=== PATIENT | male | born 1965 | race Caucasian/White ===

== ENCOUNTER → 2023-12-21 11:01 | Outpatient (REF) | payer OTHER, SELFPAY | LOC: RAD 11:01 | PROVIDERS: ATTENDING PHYSICIAN Nurse Practitioner Family | DX: M25.571 Pain in right ankle and joints of right foot (principal); M25.531 Pain in right wrist | CPT/HCPCS: 73110; 73610 ==

== ENCOUNTER → 2024-01-08 06:17 | Outpatient (REF) | payer OTHER, SELFPAY | LOC: EMG 06:17 | PROVIDERS: ATTENDING PHYSICIAN Orthopaedic Surgery; FAMILY PHYSICIAN Family Medicine | DX: R20.0 Anesthesia of skin (principal) | CPT/HCPCS: 95886; 95909 ==

== ENCOUNTER → 2024-01-14 06:32 | Outpatient (REF) | payer OTHER, SELFPAY | LOC: MRI 3T 06:32 | PROVIDERS: ATTENDING PHYSICIAN Orthopaedic Surgery; FAMILY PHYSICIAN Internal Medicine | DX: M54.12 Radiculopathy, cervical region (principal) | CPT/HCPCS: 72141 ==

== ENCOUNTER 2024-01-17 15:59 | Inpatient (IN) | payer OTHER, SELFPAY ==
[2024-01-17 10:27] VITALS: BP 125/75
[2024-01-17 11:00] VITALS: BMI 22.5
--- NOTE | 2024-01-17 12:09 | ED.GENMED ---
History of Present Illness
General
Chief Complaint: DVT/Possible Blood Clot
Source: patient and spouse
Exam Limitations: none
Time Seen by Provider: 01/17/24 10:36
Nursing documentation reviewed up to this point in time: agreed with
Travel History
Have you had any contact with someone who has COVID-19?: No
Do you have any symptoms of coronavirus? Fever > 100 degrees, chills, cough, shortness of breath, sore throat, loss of taste or smell, muscle aches, or headache?: No
History of Present Illness
History of Present Illness:
58-year-old male presents emergency department complaining of swelling and rash to left foot and lower leg that started on Sunday. He saw Dr. Nielsen today for his right wrist pain, and was sent to the emergency department. He has had rashes and
pain in other joints in the past. Dr. Nielsen recommended he come to the emergency department, as well as follow-up with rheumatology.
Past History
Past History
ED Past Medical History: Asthma
ED Past Surgical History: Orthopedic (Bilateral shoulder surgery, right hip surgery)
Social History
Tobacco: Non-smoker
Alcohol: None
Drug: None
Living: with family
Phy Exam
Physical Exam
Physical Exam:
Physical Exam
General: Afebrile
Neck: supple. no meningeal signs. normal posterior pharynx
Heart: s1/s2 regular rate and rhythm, no murmur. equal radial
pulses.
HEENT: Pupils equal round reactive to light, EOMI
Lungs: no acute respiratory distress. clear bilaterally
Abdomen: normal bowel sounds. not tender. no CVAT
Neuro: alert and oriented. no focal neurological deficits cranial nerves II through XII intact
Skin: Erythema left lower leg
Psychiatric: well kept. interactive and cooperative
Extremities: Edema left lower leg, calf tenderness left lower leg, positive homans. good distal pulses, soft compartments
Course
Orders/Labs/Results
Orders:
Orders
01/17/24 12:08
IV Insert/Care/Rem.- Treatment PRN
US Periph Venous LOWER Ext LT Urgent
Comment:
Reason For Exam: left leg swelling, pain
01/17/24 12:25
CRP [C-Reactive Protein] Urgent
Complete Blood Count/With Diff Urgent
Comprehensive Metabolic Panel Urgent
ESR [Erythrocyte Sed Rate] Urgent
01/17/24 15:08
Apixaban [Eliquis] 10 mg PO STAT STA
01/17/24 15:14
CeFAZolin 2 GRAM [Ancef] 2 grams in 10 ml IV NOW
01/17/24 15:46
Procalcitonin Stat
PCT Algorithmm Indication: Sepsis
Serum Osmolality Stat
Urinalysis Reflex To Culture Routine
Urine Osmolality Random [Osmolality, Random Urine] Stat
Urine Sodium Stat
Abnormal Lab Results
01/17/24
12:25
WBC 11.6 H 10^3/uL
(4.8-10.8)
RBC 4.25 L 10^6/uL
(4.70-6.10)
Hgb 12.1 L g/dL
(13.0-18.0)
Hct 35.5 L %
(39.0-52.0)
RDW 14.6 H %
(11.5-14.5)
Abs Immat Gran (auto) 0.1 H 10^3/uL
(0-0.05)
Absolute Neuts (auto) 9.7 H 10^3/uL
(1.4-6.5)
Absolute Lymphs (auto) 1.0 L 10^3/uL
(1.2-3.4)
Absolute Monos (auto) 0.8 H 10^3/uL
(0.1-0.6)
Neutrophils % 83.1 H %
(42.2-75.2)
Lymphocytes % 8.9 L %
(20.5-51.1)
ESR 46 H mm/hour
(0-20)
Sodium 127 L mmol/L
(135-145)
Glucose 105 H mg/dl
(70-99)
Calcium 8.1 L mg/dl
(8.4-10.2)
C-Reactive Protein 199.90 H mg/L
(0.0-10.00)
Albumin 3.1 L g/dl
(3.5-5.0)
01/17/24 12:25
01/17/24 12:25
Vital Signs
Initial and Last Documented VS:
Initial Vital Signs
Temp Pulse Resp BP Pulse Ox
98.7 F 109 18 125/75 95
01/17/24 10:27 01/17/24 10:27 01/17/24 10:27 01/17/24 10:27 01/17/24 10:27
Last Documented Vital Signs
Temp Pulse Resp BP Pulse Ox
99.5 F 94 20 126/78 97
01/17/24 14:51 01/17/24 14:51 01/17/24 14:51 01/17/24 14:51 01/17/24 14:51
MDM/Problems Addressed
Differential Diagnosis Includes:
DVT, cellulitis, compartment syndrome
MDM/Problems Addressed:
58-year-old male with left lower leg DVT and cellulitis. Treat with cefazolin and Eliquis. Admit to hospitalist.
Acute Exacerbation and/or Progression of Chronic Illness: Other (Possible autoimmune disease, polyarthritis)
*Radiology
Radiology exam reviewed: radiology read reviewed (Ultrasound shows left posterior tibial DVT)
*Pulse Oximetry
Patient hypoxic: no
*EKG
Interpreted by ED Provider?: NA
*Dentistry Teacher Interpretation
Rate: Dentistry Teacher- N/A
*Critical Care Note
Total Time (30-74mins, 75-104mins- exclusive of procedures): Not Applicable
Patient Management
Social determinants of health affecting care: Living situation and Strong social support
Discussion with other providers: Hospitalist and Processing Rep (Dr. Eyad Nielsen, orthopedics, did not suspect compartment syndrome on his evaluation in office)
Escalation/DeEscalation of care consider admission/obs:
Admit indicated
ED Attending Note
-
Portions of this chart may have been created with voice recognition software.� Occasional wrong word or��sound alike� substitutions may have occurred due to the inherent limitations of voice recognition software.
Discharge Plan
Departure
Patient Disposition: Admit
Date of Disposition: 01/17/24
Time of Disposition: 14:52
Admit to: Med/Surg
Presentation/result/management discussed w/ accepting MD/DO: Hospitalist
Patient with high blood pressure during this ER visit?: Yes
Condition: Good
Discharge Problem:
Cellulitis of left leg, Acute deep vein thrombosis (DVT) of left lower extremity
Prescriptions:
No Action
tramadol 50 mg Tablet
50 mg PO Q6H PRN (Reason: severe pain)
Patient Comments:
01/17/2024, pt. filled this med. on 01/04/2024 for 40 tablets according to PDMP.
ibuprofen [Advil] 200 mg Tablet
400 mg PO DAILYPRN PRN (Reason: mild pain)
albuterol sulfate 90 mcg/actuation Hfa Aerosol Inhaler
2 puff INHALATION R Q4HPRN PRN (Reason: sob)
Fruit and Vegetable Daily 5-6-150 mg Capsule
6 cap PO DAILY
Anoro Ellipta 62.5-25 mcg/actuation Blister With Device
1 inh INHALATION R DAILY
gabapentin
1 cap PO BIDPRN PRN (Reason: mild pain)
Patient Comments:
01/17/2024, pt. used an older prescription of his from 2016 per pt.; was not able to find in pharmacy fill data or [facility] records. Pt. has used this med. for the past three days per pt.; pt. unsure of strength.
cyclobenzaprine 10 mg Tablet
10 mg PO ONCE PRN (Reason: muscle relaxer)
Referrals:
Bryson Horn I., DO [Family Provider] -
Interventions
Interventions:
*Risk Screen - Suicide Last Done: 01/17/24 11:00
*General Assessment Last Done: 01/17/24 11:00
*Neglect/Abuse Screening Last Done: 01/17/24 11:00
*ED COVID-19 Vaccine History Last Done: 01/17/24 11:00
ED- Cardiac Assessment Last Done: 01/17/24 13:00
ED- Pulmonary Assessment Last Done: 01/17/24 13:00
ED-Peripheral Vascular Assessment Last Done: 01/17/24 13:00
ED-Skin Assessment Last Done: 01/17/24 13:00
[2024-01-17 12:36] LABS: % Basophils 0.3 % (0-2); % Eosinophils 0.1 % (0-6); % Immature Granulocytes 0.5 % (0-0.5); % Lymphocytes 8.9 % (20.5-51.1); % Monocytes 7.1 % (1.7-9.3); % Neutrophils 83.1 % (42.2-75.2); Absolute Immature Granulocytes 0.1 10^3/uL (0-0.05); Absolute Monocytes 0.8 10^3/uL (0.1-0.6); Absolute Neutrophils 9.7 10^3/uL (1.4-6.5); Hematocrit 35.5 % (39.0-52.0); Hemoglobin 12.1 g/dL (13.0-18.0); Mean Corp Hgb Conc. 34.1 g/dL (33.0-37.0); Mean Corpuscular Hgb 28.5 pg (27.0-31.0); Mean Corpuscular Volume 83.5 fL (80.0-94.0); Mean Platelet Volume 9.3 fL (7.4-10.4); Nucleated Red Blood Cells % 0 % (-); Platelet Count 272 10^3/uL (130-400); Red Blood Cell Count 4.25 10^6/uL (4.70-6.10); Red Cell Dist. Width 14.6 % (11.5-14.5); White Blood Cell Count 11.6 10^3/uL (4.8-10.8)
[2024-01-17 12:55] LABS: ALT (SGPT) 37 U/L (0-50); AST (SGOT) 34 U/L (17-59); Albumin 3.1 g/dl (3.5-5.0); Alkaline Phosphatase 116 U/L (38-126); Blood Urea Nitrogen 11 mg/dl (9-20); Calcium 8.1 mg/dl (8.4-10.2); Carbon Dioxide 28 mmol/L (22-30); Chloride 98 mmol/L (98-107); Estimated Creatinine Clearance 116 ml/min; Glucose 105 mg/dl (70-99); Potassium 4.4 mmol/L (3.5-5.1); Sodium 127 mmol/L (135-145); Total Bilirubin 0.6 mg/dl (0.2-1.3); Total Protein 6.4 g/dl (6.3-8.2); eGFR > 60.00
[2024-01-17 13:14] LABS: Erythrocyte Sed Rate 46 mm/hour (0-20)
[2024-01-17 14:51] VITALS: BP 126/78
--- NOTE | 2024-01-17 15:14 | HPS.HSE ---
Addendum entered and electronically signed by Clyde Loera MD 01/17/24 16:33:
58-year-old male with a past medical history of asthma presents with a 1 day history of left lower extremity pain, swelling, erythema.
Ultrasound is positive for left posterior tibial vein DVT.
Check procalcitonin.
Treat for cellulitis with IV Ancef, DVT with Eliquis 10 mg twice a day for 7 days, followed by 5 mg twice a day.
Trend fever and white count.
Inflammatory markers are elevated, CRP 199, ESR 46.
He does complain of migratory arthritic pain. He received a right wrist steroid injection by orthopedic surgery today.
Check CHARISSA and RF as well.
Patient's sodium was noted to be low at 127, his most recent sodium is 133.
Suspect this is due to excess ADH release from pain.
Will check serum osmolality, urine osmolality, TSH, a.m. cortisol.
Fluid restrict, monitor sodium.
Total time spent to see the patient on the floor, examine the patient, review data and lab results, discuss treatment plan with patient, nursing staff around 75 minutes.
I have personally seen and examined the patient, and agree with the plan of care as documented by JOSE Milligan.
Advance care planning discussed, patient is a full code.
All other issues as outlined by the advanced care practitioner.
Original Note:
Family Physician
-
Family Physician: Bryson Horn
Chief Complaint
-
left LE redness and swelling, pain
History of Present Illness
58-year-old male with PMH for asthma presented to us with swelling and rash to left foot and lower leg that started on Sunday.�stated its been going on since September. he had physical, blood work and he has an appointment for MRI. he was also
complaining for joint pain since then. recently he started having pain in his right hand pain. He saw Dr. Nielsen today for his right wrist pain, and was sent to the emergency department after steroid injection. denied fever, chills, chest pain, sob.
denied ELIZALDE,dizzy or syncopal episode. denied abdominal pain, n,v,d. denied dysuria or hematuria. denied any recent surgery, denied trauma.
US with DVT. patient received a dose of eliquis and cefazolin. admitting for further management.
Medical History
Past Medical History
Past Medical History: Reports Other
Additional Past Medical History:
asthma
Past Surgical History: Reports Other
Additional Past Surgical History:
b/l shoulder surgery
right hip surgery
Social History
Tobacco: Smoker (1/2 pack day)
Alcohol: None
Drug: None
Personal:
Living: With Family
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
Family History
Family History: Not pertinent
Allergies / Home Medications
Allergies reflects when Allergies were last updated in [facility].
Home Medications with original date entered in [facility]
Allergy/Medication List:
Allergies
Allergy/AdvReac Type Severity Reaction Status Date / Time
No Known Allergies Allergy Verified 01/17/24 10:26
Home Medications
albuterol sulfate 90 mcg/actuation aerosol inhaler 2 puff inhalation R Q4HPRN PRN sob 01/17/24
cyclobenzaprine 10 mg tablet 10 mg PO ONCE PRN muscle relaxer 01/17/24
gabapentin 1 cap PO BIDPRN PRN mild pain 01/17/24
ibuprofen 200 mg tablet (Advil) 400 mg PO DAILYPRN PRN mild pain 01/17/24
ltnhdmab-tsfsda-nwsla extract 5 mg-6 mg-150 mg capsule (Fruit and Vegetable Daily) 6 cap PO DAILY 01/17/24
tramadol 50 mg tablet 50 mg PO Q6H PRN severe pain 01/17/24
umeclidinium 62.5 mcg-vilanterol 25 mcg/actuation powdr for inhalation (Anoro Ellipta) 1 inh inhalation R DAILY 01/17/24
Review of Systems
-
Constitutional: Reports No Symptoms
EENT: Reports No Symptoms
Respiratory: Reports No Symptoms
Cardiac: Reports No Symptoms
Abdomen/GI: Reports No Symptoms
: Reports No Symptoms
Musculoskeletal: Reports Joint Pain and Other (left LE pain, right wrist, hand pain)
Skin: Reports No Symptoms
Neurological: Reports No Symptoms
Endocrine: Reports No Symptoms
Hematologic/Lymphatic: Reports No Symptoms
Psych: Reports No Symptoms
Physical Exam
Vital Signs
Vital Signs
Temp Pulse Resp BP Pulse Ox
99.5 F 94 20 126/78 97
01/17/24 14:51 01/17/24 14:51 01/17/24 14:51 01/17/24 14:51 01/17/24 14:51
Physical Exam
General: Well Developed, Well Nourished and No Apparent Distress
HEENT: NormoCephalic, Moist mucous membranes and Atraumatic
Respiratory: Clear
Cardiac: S1/S2 and Regular Rhythm; No Murmur or Rub
GI: Soft, Non Tender, Non Distended and Normal Bowel Sounds; No Organomegaly
Rectal: Deferred by Provider
Musculoskeletal: No Clubbing, No Cyanosis and Other (left LE redness and swelling)
Skin: No Rash
Neuro: AO x 3 and Nonfocal/grossly intact
Psych: Calm
Laboratory Results
-
01/17/24 12:25
01/17/24 12:25
Laboratory Results
Total Bilirubin 0.6 mg/dl (0.2-1.3) 01/17/24 12:25
AST 34 U/L (17-59) 01/17/24 12:25
ALT 37 U/L (0-50) 01/17/24 12:25
Alkaline Phosphatase 116 U/L (38-126) 01/17/24 12:25
Data Reviewed
-
Diagnostic Radiology: Report Reviewed by me
Lab Data: Labs Reviewed by me
Impression/Plan
-
# Left lower extremity cellulitis
-WBC 11.6
-CRP 199.90, ESR with 46
-iv cefazolin continued
-Tylenol for fever and pain
-trend wbc
-oxy prn for pain
# Left lower extremity DVT
-peripheral vascular sound with �Deep venous thrombosis in a left posterior tibial vein.
-eliquis in Er
-continue eliquis
# Acute on chronic hyponatremia likely from pain
-Sodium 127
-obtain urine electrolytes
-TSH
-cortisol in am
-fluid restriction
-monitor BMP in AM
#hxt of asthma
-nebs from home continued
#CODE status
-full code
[2024-01-17] MEDS: ELIQUIS 10 MG PO (15:15)
[2024-01-17] MEDS: ANCEF 10 IV ×2 (16:37→23:15)
[2024-01-17 16:54] VITALS: BP 129/79
[2024-01-17] MEDS: TYLENOL 1000 MG PO ×2 (17:03→23:11)
[2024-01-17] MEDS: ROXICODONE 10 MG PO (17:03)
[2024-01-17 17:31] LABS: Urine Albumin Trace (Neg - Trace); Urine Bilirubin Negative (Negative); Urine Character Clear (Clear); Urine Color Yellow; Urine Glucose Negative (Negative); Urine Ketone Negative (Negative); Urine Leukocyte Negative (Negative); Urine Nitrite Negative (Negative); Urine Occult Blood 2+ (Negative); Urine Urobilinogen Negative (Neg - 1+)
[2024-01-17 17:34] LABS: Osmolality Urine 414 mOsm/kg (300-900)
[2024-01-17 17:38] LABS: Osmolality Serum 274 mOsm/kg (275-300)
[2024-01-17 17:39] LABS: Urine Squamous Cell 0-2 /LPF (Few)
[2024-01-17 17:39] LABS: Procalcitonin 0.19 ng/ml (0.0-0.25)
[2024-01-17 17:40] LABS: Urine White Cell 0-2 /HPF (0-5)
[2024-01-17 17:49] LABS: Urine Sodium 17 mmol/L (30-90)
[2024-01-17 18:34] VITALS: BMI 22.1
[2024-01-17 18:35] VITALS: BP 121/66
[2024-01-17] MEDS: MIRALAX 17 GRAMS PO (19:47)
[2024-01-17] MEDS: SENOKOT-S 2 TABLET PO (19:52)
[2024-01-17 23:06] VITALS: BP 113/74
[2024-01-18 05:45] LABS: Hematocrit 37.2 % (39.0-52.0); Hemoglobin 12.4 g/dL (13.0-18.0); Mean Corp Hgb Conc. 33.3 g/dL (33.0-37.0); Mean Corpuscular Hgb 28.4 pg (27.0-31.0); Mean Corpuscular Volume 85.1 fL (80.0-94.0); Mean Platelet Volume 9.6 fL (7.4-10.4); Platelet Count 272 10^3/uL (130-400); Red Blood Cell Count 4.37 10^6/uL (4.70-6.10); Red Cell Dist. Width 14.4 % (11.5-14.5)
[2024-01-18 06:09] LABS: Blood Urea Nitrogen 12 mg/dl (9-20); Calcium 8.3 mg/dl (8.4-10.2); Carbon Dioxide 29 mmol/L (22-30); Chloride 101 mmol/L (98-107); Estimated Creatinine Clearance > 125 ml/min; Glucose 122 mg/dl (70-99); Potassium 4.4 mmol/L (3.5-5.1); Sodium 133 mmol/L (135-145); eGFR > 60.00
[2024-01-18 07:00] VITALS: BP 108/63
[2024-01-18 07:19] LABS: TSH Reflex To Free T4 2.63 uIU/ml (0.47-4.68)
[2024-01-18] MEDS: SPIRIVA RESPIMAT 2.5 MCG 2 PUFF INH (07:53)
[2024-01-18] MEDS: STRIVERDI RESPIMAT 2 PUFF INH (07:54)
--- NOTE | 2024-01-18 08:51 | W.PN.HOSP.TC ---
Today's Communication/Plan
-
Consult ID
Assessment / Plan
Assessment / Plan
HPI: 58-year-old male with a past medical history of asthma presents with a 1 day history of left lower extremity pain, swelling, erythema.�
Ultrasound is positive for left posterior tibial vein DVT.
#Poss acute left lower extremity cellulitis
#Streptococcal bacteremia versus contaminant
Procalcitonin 0.19 - unclear if actual infection
Continue IV Ancef, repeat blood cultures, c/s ID
#Migrating polyarthritis
CRP elevated at 199
Follow-up CHARISSA and RF, send out test
Follow-up with rheumatology outpatient
#Acute left lower extremity DVT
Deep venous thrombosis in a left posterior tibial vein
Eliquis 10 mg twice a day for 7 days, followed by 5 mg twice a day
#Acute on chronic hyponatremia
Suspect due to excess ADH release from pain
TSH and cortisol normal
Sodium 133 today, was 127
Continue fluid restriction, monitor sodium
#hxt of asthma
nebs from home continued
DVT prophylaxis�Eliquis
Full code
Discussed with ID
Updated on phone 01/17
Total time spent to see the patient on the floor, examine the patient, review data and lab results, discuss treatment plan with patient, nursing staff around 51 minutes.
Physical Exam
General: No acute distress
HEENT: Normocephalic, Atraumatic, EOMI, MMM
Respiratory: Clear to Auscultation bilaterally
Cardiac: Normal S1/S2, Regular Rate and Rhythm
GI: Soft, Nontender, Nondistended, Normal Bowel Sounds
Extremities: No Clubbing, Cyanosis
Left lower extremity edema and tenderness noted, erythema on admission resolved
Neuro: Nonfocal/Grossly Intact
Anticipated Discharge: > 48 hours
Subjective/Interval History
-
Date of Service: January 18, 2024
Patient reports improvement in left lower extremity pain. No fever. No chest pain, shortness of breath, or palpitations.
Objective Data
-
Labs:
Laboratory Results
01/18/24
05:15
WBC 9.0
Hgb 12.4 L
Hct 37.2 L
Plt Count 272
Sodium 133 L
Potassium 4.4
Chloride 101
Carbon Dioxide 29
BUN 12
Creatinine 0.6 L
Glucose 122 H
Calcium 8.3 L
Vital Signs:
Vital Signs
Temp Pulse Resp BP Pulse Ox
97.4 F 81 18 108/63 96
01/18/24 07:00 01/18/24 08:07 01/18/24 08:07 01/18/24 07:00 01/18/24 08:07
I&O
01/17/24 01/18/24 01/19/24
06:59 06:59 06:59
Intake Total 840 / 840
Output Total 640 / 640
Balance 200 / 200
[2024-01-18] MEDS: ROXICODONE 10 MG PO ×3 (09:01→18:31)
[2024-01-18] MEDS: ANCEF 10 IV (09:02)
[2024-01-18] MEDS: SENOKOT-S 2 TABLET PO ×2 (09:02→22:28)
[2024-01-18] MEDS: ELIQUIS 10 MG PO (09:02)
[2024-01-18] MEDS: TYLENOL 1000 MG PO ×3 (09:03→22:32)
[2024-01-18] MEDS: MIRALAX 17 GRAMS PO ×2 (09:03→22:25)
--- NOTE | 2024-01-18 11:04 | CON.ID ---
Consultation
-
Date/Time Consultation Requested: 01/18/24 10:37
Date/Time Consultation Performed: 01/18/24 11:04
Requesting Provider: Dr Loera
Performing Provider: Dr Escobar
Reason for Consultation: bacteremia
Chief Complaint / Past History
Chief Complaint
left LE redness and swelling, pain
History of Present Illness
Mr Aggarwal is a 58 year old male with history of asthma presenting here for swelling and rash of the L foot. The Left lower extremity began with swelling of the calf and ankle 3 days ago. He feels frustrated because he also had marked swelling of
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 The swelling subseqeuntly subsided. About two week later he then had
swelling of the calf of the RIGHT lower extremity - tenderness that subsequently subsided on its own without workup. He has not seen his PCP for these issues. Reports no previous diagnosis of dvt. Does report a recent PSA in the 20s and MRI of
the prostate is planned for mid-next week. No fevers, chills, shortness of breath, nausea, vomiting, diarrhea. No recent trauma or surgery. 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 US of
the LLE found to have a DVT. He was seen in orthopedics hand clinic same day for new onset or R wrist pain and had a steroid injection and then was sent to the ER.
Able to bear full weight on the right leg, no swelling tendernes, warmth or fluctuance of the hip or the leg at this time.
Since arrival here he has been afebrile, bp stable, wbc 9 today, there was L shift on arrival, hgb 12, plt 272, esr 46, cr 0.6, crp 199, procal 0.19, a1c pending, ua neg, rf and trena pending, L lower extremity DVT noted, 01/14 C spine MRI without
contrst: severe DJD, blood cultures x2 at the same time both with gpcs in chains - source not specified unclear if from the same stick.
Past History
Past Medical History: Asthma
Additional Past Surgical History:
bilateral shoulder surgery without hardwear
right hip replacement
Allergy History:
No Known Allergies Allergy (Verified 01/17/24 10:26)
Medications Reviewed: Yes
Social History
Tobacco: Smoker
Alcohol: None
Drug: None
Family History
Family History: Not Pertinent
Review of Systems
Review of Systems
General: Negative Fever or Chills
All systems: All other systems were reviewed and were negative
Vital Signs
Temp Pulse Resp BP Pulse Ox
97.4 F 81 18 108/63 96
01/18/24 07:00 01/18/24 08:07 01/18/24 08:07 01/18/24 07:00 01/18/24 08:07
Physical Exam
Physical Exam
Constitutional: No Acute Distress
Cardiovascular: Regular Rate and S1/S2; Negative Murmur or Rub
Pulmonary: Clear and Symmetric; Negative Wheezes, Rales or Rhonchi
Gastrointestinal: Soft, Non Tender, Non Distended and Normal Bowel Sounds
Skin: Warm and Dry; Negative Rash or Jaundice
Lab / Diagnostic Study Results
01/18/24 05:15
01/18/24 05:15
Abs Immat Gran (auto) 0.1 10^3/uL (0-0.05) H 01/17/24 12:25
Absolute Neuts (auto) 9.7 10^3/uL (1.4-6.5) H 01/17/24 12:25
Absolute Lymphs (auto) 1.0 10^3/uL (1.2-3.4) L 01/17/24 12:25
Absolute Monos (auto) 0.8 10^3/uL (0.1-0.6) H 01/17/24 12:25
Absolute Basos (auto) 0.0 10^3/uL (0-0.2) 01/17/24 12:25
Immature Gran % 0.5 % (0-0.5) 01/17/24 12:25
Neutrophils % 83.1 % (42.2-75.2) H 01/17/24 12:25
Lymphocytes % 8.9 % (20.5-51.1) L 01/17/24 12:25
Monocytes % 7.1 % (1.7-9.3) 01/17/24 12:25
Eosinophils % 0.1 % (0-6) 01/17/24 12:25
Basophils % 0.3 % (0-2) 01/17/24 12:25
ESR 46 mm/hour (0-20) H 01/17/24 12:25
C-Reactive Protein 199.90 mg/L (0.0-10.00) H 01/17/24 12:25
Procalcitonin 0.19 ng/ml (0.0-0.25) 01/17/24 16:52
Ur Squamous Epith Cells 0-2 /LPF (Few) 01/17/24 17:23
Microbiology Results
Micro:
01/17/24 16:52 Blood Culture - Preliminary
Blood/Venous Positive culture in progress
Gram Stain - Final
01/17/24 16:52 Blood Culture - Preliminary
Blood/Venous Positive culture in progress
Gram Stain - Preliminary
Assessment / Plan
Bacteremia vs Contaminated Blood cultures
LLE DVT; history suggestive of previous DVTs (not confirmed)
Right Hip Hardwear
- leukocytosis may have been due to steroid injection
- blood cultures x2 at the same time both with gpcs in chains - source not specified - unclear if from the same stick - may be a contaminant
- repeat blood cultures x2 today - has already been on cefazolin
- no cellulitis of the calf, swelling of the leg is noted without significant erythema of the leg, there is edema and minimal dependant erythema of the left ankle along with edema, my concern for septic joint at this time is low, follow clinically,
if unclear then could consider aspiration of the joint
- TTE
- right hip asymptomatic
- continue cefazolin at this time
- suspect previous DVTs of the RUE and LLE, note history of elevated PSA (20s by report), he is planned for MRI prostate mid next week, might also consider hematology follow up outpatient
Care Review
Plan reviewed with: Physician (Dr Loera - dvt(s))
[2024-01-18 11:49] VITALS: BMI 22.1
[2024-01-18 13:01] VITALS: BP 130/69
[2024-01-18 15:00] VITALS: BP 115/65
--- NOTE | 2024-01-18 16:55 | CON.CAR ---
Consultation
Consultation Request
Date/Time Consultation Requested: January 18, 2024 5 PM
Date/Time Consultation Performed: January 18, 2024 5 PM
Requesting Provider: Hospitalist
Performing Provider: cammy garcia
Reason for Consultation: infective endocarditis
Medical History
-
Chief Complaint: LLE pain swelling erythema
History of Present Illness:
58-year-old male with past medical history of asthma who presented initially for left lower extremity pain swelling and erythema. Prior to admission his left lower extremity had begun swelling 3 days before he came to the hospital. Interestingly,
he has had multiple episodes of swelling including his right arm and hand as well as his right lower extremity. He was found to have cellulitis and blood cultures were drawn. His blood cultures were ultimately positive for gram-positive
bacteremia. A transthoracic echocardiogram was done and it is concerning for possible mitral valve endocarditis with severe mitral regurgitation and possible aortic valve endocarditis with moderate aortic regurgitation.
Past Medical History
Past Medical History: Asthma
Past Surgical History: Other (Right hip replacement bilateral shoulder surgery.)
Social History
Tobacco: Smoker
Alcohol: None
Drug: None
Personal:
Family History
Family History: Reviewed & Not Pertinent
Allergies / Home Medications
Allergy/AdvReac Type Severity Reaction Status Date / Time
No Known Allergies Allergy Verified 01/17/24 10:26
Medication Instructions Recorded Confirmed Type
albuterol sulfate 90 mcg/actuation 2 puff inhalation R Q4HPRN PRN sob 01/17/24 01/17/24 History
aerosol inhaler
cyclobenzaprine 10 mg tablet 10 mg PO ONCE PRN muscle relaxer 01/17/24 01/17/24 History
gabapentin 1 cap PO BIDPRN PRN mild pain 01/17/24 01/17/24 History
ibuprofen 200 mg tablet (Advil) 400 mg PO DAILYPRN PRN mild pain 01/17/24 01/17/24 History
hbwrjhsk-zcobwg-nsixf extract 5 6 cap PO DAILY Supplement 01/17/24 01/17/24 History
mg-6 mg-150 mg capsule (Fruit and
Vegetable Daily)
tramadol 50 mg tablet 50 mg PO Q6H PRN severe pain 01/17/24 01/17/24 History
umeclidinium 62.5 mcg-vilanterol 1 inh inhalation R DAILY 01/17/24 01/17/24 History
25 mcg/actuation powdr for Lung/Breathing Issues
inhalation (Anoro Ellipta)
Review of Systems
-
All other systems: Negative unless noted
Physical Exam
Vital Signs
Temp Pulse Resp BP Pulse Ox
97.7 F 90 16 115/65 98
01/18/24 15:00 01/18/24 15:00 01/18/24 15:00 01/18/24 15:00 01/18/24 15:00
Lab Results
01/18/24 05:15
01/18/24 05:15
Physical Exam
General: Well Developed and Well Nourished
HEENT: Normocephalic and Anicteric
Respiratory: Clear and Non Labored Respirations
Cardiac: S1/S2 and Regular Rhythm
GI: Soft
Musculoskeletal: No Clubbing and No Cyanosis
Skin: Warm and Dry
Neuro: AO x 3
Impression / Plan
-
58-year-old male with past medical history of asthma who was initially admitted for left lower extremity cellulitis. He was found to have gram-positive bacteremia and an echocardiogram showed severe mitral regurgitation with thickening of the
anterior and posterior leaflets concerning for endocarditis, as well as a possible torn chordae versus vegetation attached to the posterior leaflet. Additionally, he now has moderate AI which thickened aortic valve cusps in the setting of
bacteremia this is concerning for additional endocarditis of the aortic valve.
Likely endocardities of the MV and possibly AV with severe MR and mod AI
- Cardiac surgery consult
- STEPHANIE on 01/20/2024, NPO after midnight on 01/19/2024
- Abx per primary
- obtain ECG and place on telemetry
DVT
- per primary
Migrating polyarthritis
- Elevated CRP and ESR
hyponatremia - per primary
Asthma
Data Reviewed
-
Medical Tests (Nuc Med, Echo etc): Image Personally Visualized and interpreted, Discussed with Physician and Discussed with Family
Labs: Labs Reviewed by me
--- NOTE | 2024-01-18 16:57 | CONSULT.CT ---
Consultation
-
Date/Time Consultation Requested: 01/18/241644
Date/Time Consultation Performed: 01/18/24 1700
Requesting Provider: Dr. Loera
Performing Provider: Ghazal Barry MD
Reason for Consultation: Endocarditis
Patient History
Physicians
Family Physician: Bryson Horn
Outpatient Risk Control Analyst: Kelsey
Inpatient Risk Control Analyst: Lane
History of Present Illness
58-year-old male with past medical history of BPH, and asthma presented on with swelling and rash to the left foot and lower leg that has been around for 3 days he was schedule for a MRI since he was complaining of joint pain. He saw Dr. Nielsen
for right wrist steroid injections and was sent to the ER afterwards for further work up. He was admitted and treated for celluitis with ancef and found to have a LLE DVT that was treated with eliquis. He was also found to be hyponatremic. Today, he
had a TTE preformed that found a LV ejection fraction of 68%, anterior and posterior leaflet thickening questionable for possible vegetation versus possible torn chordae, severe MR, and moderate AR. CT surgery was consulted for surgical evaluation.
Of note, patient had similar symptoms in September 2023 in the right lower extremity that traveled to his right upper extremity. He reports that those symptoms resolved, however, he is left with numbness, tingling,
and intermittent duskiness of the right upper extremity. He also denies any IVDA and recent dental infections but did report a chipped tooth.
Past Medical History
Past Medical History: Asthma and Valvular Disease
Past Surgical History
Past Surgical History: Orthopedic
Dental History
Chipped tooth, bridges
Family History
Mother: at Age
Father: Still Living
Family Medical History: CAD
Social History
Alcohol: Daily ('couple beers a night')
Drug: Former User and Marijuana
Tobacco: Smoker (10 cigs/day (heaviest 1ppd; started smoking since 16 y/o) )
Personal:
Living: With Spouse
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
Allergies
Allergy/AdvReac Type Severity Reaction Status Date / Time
No Known Allergies Allergy Verified 01/17/24 10:26
Home Medications
Medication Instructions Recorded Confirmed Type
albuterol sulfate 90 mcg/actuation 2 puff inhalation R Q4HPRN PRN sob 01/17/24 01/17/24 History
aerosol inhaler
cyclobenzaprine 10 mg tablet 10 mg PO ONCE PRN muscle relaxer 01/17/24 01/17/24 History
gabapentin 1 cap PO BIDPRN PRN mild pain 01/17/24 01/17/24 History
ibuprofen 200 mg tablet (Advil) 400 mg PO DAILYPRN PRN mild pain 01/17/24 01/17/24 History
tedqudvb-jusnik-eboyn extract 5 6 cap PO DAILY Supplement 01/17/24 01/17/24 History
mg-6 mg-150 mg capsule (Fruit and
Vegetable Daily)
tramadol 50 mg tablet 50 mg PO Q6H PRN severe pain 01/17/24 01/17/24 History
umeclidinium 62.5 mcg-vilanterol 1 inh inhalation R DAILY 01/17/24 01/17/24 History
25 mcg/actuation powdr for Lung/Breathing Issues
inhalation (Anoro Ellipta)
Review of Systems
-
History Source: Patient
General: Reports No Symptoms
HEENT: Reports No Symptoms
Respiratory: Reports SOB and Asthma
Cardiac: Reports No Symptoms
Abdomen/GI: Reports No Symptoms
: Reports Frequency
Musculoskeletal: Reports Joint Pain
Skin: Reports Rash
Neurological: Reports Numbness and Other (tingling )
Vascular: Reports Claudication
Physical Exam
Vital Signs
Temp 97.7 F 01/18/24 15:00
Temp route: Oral 01/18/24 15:00
Pulse 90 01/18/24 15:00
Resp Rate 16 01/18/24 15:00
Blood pressure 115/65 01/18/24 15:00
Blood pressure extremity used: Left upper arm 01/18/24 15:00
Position: Lying 01/18/24 15:00
SaO2 98 01/18/24 15:00
Oxygen Mode of Delivery Room air 01/18/24 15:00
Acceptable pain level during hospitalization? 0 01/17/24 10:27
Can the patient verbally communicate their pain? Yes 01/18/24 15:27
Pain scale ratin 01/18/24 15:27
Actual Weight 69.853 kg 01/17/24 18:34
Body Mass Index (BMI) 22.1 01/17/24 18:34
Supine- Blood Pressure 130/69 01/18/24 13:01
Labs
01/18/24 05:15
01/18/24 05:15
Hemoglobin A1c 6.0 % (4.0-5.6) H 01/18/24 05:15
Urinalysis
Urine Color Yellow 01/17/24 17:23
Urine Clarity Clear (Clear) 01/17/24 17:23
Urine pH 6.0 (5.0-9.0) 01/17/24 17:23
Ur Specific [place] 1.020 (<1.030) 01/17/24 17:23
Urine Ketones Negative (Negative) 01/17/24 17:23
Ur Occult Blood Reflex 2+ (Negative) A 01/17/24 17:23
Urine Bilirubin Negative (Negative) 01/17/24 17:23
Leukocyte Esterase Rfl Negative (Negative) 01/17/24 17:23
Urine RBC 7-10 /HPF (0-2) A 01/17/24 17:23
Urine WBC (Reflex) 0-2 /HPF (0-5) 01/17/24 17:23
Ur Squamous Epith Cells 0-2 /LPF (Few) 02/29/24 17:23
Urine Glucose Negative (Negative) 01/17/24 17:23
Urine Albumin (Reflex) Trace (Neg - Trace) 01/17/24 17:23
Exam
General: Well Developed, Well Nourished, No Apparent Distress and Comfortable
HEENT: Normocephalic
Respiratory: Clear
Cardiac: S1/S2, Regular Rhythm, Murmur and Calf Tenderness
GI: Soft, Non Tender and Normal Bowel Sounds
Rectal: Deferred by Provider
Skin: Warm, Dry and Rash
Neuro: AO x 3 and No Motor Deficits
Extremities: Lower Level Edema (Left LE swelling)
Psych: Calm
Assessment / Plan
-
58-year-old male with past medical history listed above presented to [place] emergency room on with concerns of cellulitis. He was found to have possible endocarditis so, CT surgery was consulted for surgical evaluation.
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
- Patient's case will be discussed with attending physician. Further details regarding surgical timing intervention will be determined after attending physicians full evaluation
- Routine preoperative cardiothoracic surgery orders will be initiated.
- STS risk stratification score will be calculated after preoperative testing is complete
- Would discontinue Eliquis and start heparin gtt in anticipation for CT surgery
- STEPHANIE scheduled for 01/20/2024; will f/u results
#LE DVT
- Started on Eliquis; last dose 01/17
- Transition to heparin gtt
#Current smoker
#Hx of asthma
- Cont home meds
- PFTs will be ordered
- pt is not requiring nicotine patch at this time
[2024-01-18] MEDS: ANCEF IV (17:16)
[2024-01-18] MEDS: ROCEPHIN 2000 MG IV (18:10)
[2024-01-18] MEDS: STERILE WATER FOR INJECTION 20 ML IV (18:11)
[2024-01-18] MEDS: HEPARIN 25000 UNITS/250 ML IV (18:32)
[2024-01-18 19:51] VITALS: BP 114/73
[2024-01-18 21:51] VITALS: BP 114/73
[2024-01-18 23:52] VITALS: BP 112/80
[2024-01-19 01:16] LABS: APTT 48.5 Sec (23.4-35.0)
[2024-01-19] MEDS: ROXICODONE 10 MG PO (01:38)
[2024-01-19] MEDS: HEPARIN 5600 UNITS IV ×2 (02:39→15:51)
[2024-01-19 03:36] VITALS: BP 105/66
[2024-01-19 05:26] VITALS: BMI 22.3
[2024-01-19 06:16] LABS: Hematocrit 38.4 % (39.0-52.0); Hemoglobin 12.7 g/dL (13.0-18.0); Mean Corp Hgb Conc. 33.1 g/dL (33.0-37.0); Mean Corpuscular Hgb 28.9 pg (27.0-31.0); Mean Corpuscular Volume 87.5 fL (80.0-94.0); Mean Platelet Volume 9.5 fL (7.4-10.4); Platelet Count 334 10^3/uL (130-400); Red Blood Cell Count 4.39 10^6/uL (4.70-6.10); Red Cell Dist. Width 14.6 % (11.5-14.5); White Blood Cell Count 8.2 10^3/uL (4.8-10.8)
[2024-01-19 06:22] LABS: INR 1.11; PT 14.4 Sec (11.4-14.6)
[2024-01-19 06:48] LABS: ALT (SGPT) 97 U/L (0-50); AST (SGOT) 86 U/L (17-59); Albumin 3.2 g/dl (3.5-5.0); Alkaline Phosphatase 166 U/L (38-126); Blood Urea Nitrogen 18 mg/dl (9-20); Calcium 8.6 mg/dl (8.4-10.2); Carbon Dioxide 31 mmol/L (22-30); Chloride 104 mmol/L (98-107); Estimated Creatinine Clearance > 125 ml/min; Glucose 107 mg/dl (70-99); Potassium 4.1 mmol/L (3.5-5.1); Sodium 137 mmol/L (135-145); Total Bilirubin 0.2 mg/dl (0.2-1.3); Total Protein 6.5 g/dl (6.3-8.2); eGFR > 60.00
[2024-01-19 07:00] VITALS: BP 111/66
--- NOTE | 2024-01-19 07:47 | W.PN.HOSP.TC ---
Today's Communication/Plan
-
see bold
Assessment / Plan
Assessment / Plan
HPI: 58-year-old male with a past medical history of asthma presents with a 1 day history of left lower extremity pain, swelling, erythema.�
Ultrasound is positive for left posterior tibial vein DVT.
#Streptococcal bacteremia
#Probable endocarditis of the MV and possibly AV with severe MR and mod AI
Appreciate ID, cardiology, CT surgery input
For STEPHANIE Sunday, monitor in telemetry
On IV Rocephin, follow-up on repeat cultures
#Migrating polyarthritis
CRP elevated at 199, possibly from septic emboli from bacterial endocarditis
Status post right wrist steroid injection on 01/15
Follow-up CHARISSA and RF, send out test
Follow-up with rheumatology outpatient
#Acute left lower extremity DVT
Deep venous thrombosis in a left posterior tibial vein
Eliquis on hold, continue IV heparin
#Elevated PSA
Has outpatient MRI scheduled on 01/22/2024
Has outpatient follow-up with Dr. Laurent
#Acute on chronic hyponatremia
Suspect due to excess ADH release from pain
TSH and cortisol normal
Sodium 137 today, was 133, was 127
Can stop fluid restriction, monitor sodium
#Constipation
Resolved, continue bowel regimen
#History of asthma
Nebs from home continued
DVT prophylaxis�IV heparin drip
Full code
Updated at bedside 01/19
Total time spent to see the patient on the floor, examine the patient, review data and lab results, discuss treatment plan with patient, nursing staff around 52 minutes.
Physical Exam
General: No acute distress
HEENT: Normocephalic, Atraumatic, EOMI, MMM
Respiratory: Clear to Auscultation bilaterally
Cardiac: Normal S1/S2, Regular Rate and Rhythm
GI: Soft, Nontender, Nondistended, Normal Bowel Sounds
Extremities: No Clubbing, Cyanosis
Left lower extremity edema and tenderness noted, erythema on admission resolved
Neuro: Nonfocal/Grossly Intact
Anticipated Discharge: > 48 hours
Subjective/Interval History
-
Date of Service: January 18, 2024
Patient feels better today. No fever. He continues to have left lower extremity pain, and right wrist pain. No chest pain, shortness of breath, or palpitations.
Objective Data
-
Labs:
Laboratory Results
01/18/24
05:15
WBC 9.0
Hgb 12.4 L
Hct 37.2 L
Plt Count 272
Sodium 133 L
Potassium 4.4
Chloride 101
Carbon Dioxide 29
BUN 12
Creatinine 0.6 L
Glucose 122 H
Calcium 8.3 L
Vital Signs:
Vital Signs
Temp Pulse Resp BP Pulse Ox
97.4 F 81 18 108/63 96
01/18/24 07:00 01/18/24 08:07 01/18/24 08:07 01/18/24 07:00 01/18/24 08:07
I&O
01/17/24 01/18/24 01/19/24
06:59 06:59 06:59
Intake Total 840 / 840
Output Total 640 / 640
Balance 200 / 200
[2024-01-19] MEDS: STRIVERDI RESPIMAT 2 PUFF INH (08:27)
[2024-01-19] MEDS: SPIRIVA RESPIMAT 2.5 MCG 2 PUFF INH (08:27)
[2024-01-19 09:07] LABS: APTT 74.7 Sec (23.4-35.0)
[2024-01-19] MEDS: SENOKOT-S 2 TABLET PO (09:41)
[2024-01-19] MEDS: TYLENOL 1000 MG PO ×3 (09:41→21:57)
[2024-01-19] MEDS: MIRALAX 17 GRAMS PO (09:42)
--- NOTE | 2024-01-19 10:25 | W.PN.CT ---
Today's Communication / Plan
-
Seen with Jhonny
STEPHANIE sunday
will follow along
Assessment / Plan
-
severe MR/?MV endocarditis
moderate AI
Preoperative workup underway, will follow up STEPHANIE Sunday.
Subjective
-
Date of Service: January 19, 2024
Patient seen with Dr. Barry. only complaint LLE foot/ankle pain, states the swelling has improved some. Also c/o R wrist discomfort, no R hip pain.
Objective Data
-
Lab Results
01/19/24 05:28
01/19/24 05:28
PT 14.4 Sec (11.4-14.6) 01/19/24 05:28
INR 1.11 01/19/24 05:28
APTT 74.7 Sec (23.4-35.0) H 01/19/24 08:36
Vital Signs
Vital Signs
Temp Pulse Resp BP Pulse Ox
97.8 F 82 16 111/66 99
01/19/24 07:00 01/19/24 08:36 01/19/24 08:36 01/19/24 07:00 01/19/24 07:00
CT Intake/Output/Weight
01/18/24 01/19/24 01/19/24
18:59 06:59 18:59
Intake Total 960 / 1440 480 / 1440
Output Total 900 / 1250 350 / 1250
Balance 60 / 190 130 / 190
SaO2: 99
Physical Exam
-
Awake, appropriate, conversant, in NAD
respirations nonlabored
LLE edema with mild ankle erythema
Data Reviewed
-
Lab Results: Results Reviewed
Medications: Active Meds Reviewed
[2024-01-19 11:00] VITALS: BP 109/63
--- NOTE | 2024-01-19 12:12 | W.PN.ID1 ---
Date of Service
Date of Service: January 19, 2024
Today's Communication
Continue ceftriaxone.
Agree with STEPHANIE Sunday.
Assessment / Plan
Streptococcal Bacteremia
LLE DVT; history suggestive of previous DVTs (not confirmed)
Right Hip Hardwear - asymptomatic
-TTE: Anterior and posterior leaflet thickening of the MV concerning for possible vegetation.� Possible torn chordae versus vegetation attached to the posterior leaflet.� Severe mitral regurgitation.
�Thickened aortic valve leaflets concerning for possible endocarditis
-Orthopantogram - negative
- leukocytosis may have been due to steroid injection, resolved
- blood cultures x2 at the same time both with Streptococcus - source not specified - unclear if from the same stick - may be a contaminant
- repeat blood cultures x2 today - has already been on cefazolin
- no cellulitis of the calf, swelling of the leg is noted without significant erythema of the leg, there is edema and minimal dependant erythema of the left ankle along with edema, my concern for septic joint at this time is low, follow clinically,
if unclear then could consider aspiration of the joint
- cefazolin changed to ceftriaxone by hospitalist.
- For STEPHANIE Sunday.
- suspect previous DVTs of the RUE and LLE, note history of elevated PSA (20s by report), he is planned for MRI prostate mid next week, might also consider hematology follow up outpatient
Chief Complaint
-: Bacteremia
Subjective / Review of Systems
Joint pains better. LLE edema significantly improved. Left medial ankle and leg erythema better.
Vital Signs / Physical Exam
Vital Signs
Vital Signs
Temp Pulse Resp BP Pulse Ox
97.8 F 82 16 111/66 99
01/19/24 07:00 01/19/24 08:36 01/19/24 08:36 01/19/24 07:00 01/19/24 10:29
Physical Exam
Constitutional: No Acute Distress and Comfortable
Cardiovascular: Regular Rate and S1/S2
Pulmonary: Clear
Gastrointestinal: Soft, Non Tender and Non Distended
Extremities: Edema (LLE 1+) and Other (LLE medial ankle with induration, pink erythema, ROM somewhat limited.)
Neurological: AO x 3
Objective Data
Lab Data
Lab Results
01/19/24 05:28
01/19/24 05:28
ESR 46 mm/hour (0-20) H 01/17/24 12:25
PT 14.4 Sec (11.4-14.6) 01/19/24 05:28
INR 1.11 01/19/24 05:28
APTT 74.7 Sec (23.4-35.0) H 01/19/24 08:36
Estimated Creat Clear > 125 ml/min 01/19/24 05:28
Total Bilirubin 0.2 mg/dl (0.2-1.3) 01/19/24 05:28
AST 86 U/L (17-59) H 01/19/24 05:28
ALT 97 U/L (0-50) H 01/19/24 05:28
Alkaline Phosphatase 166 U/L (38-126) H 01/19/24 05:28
C-Reactive Protein 199.90 mg/L (0.0-10.00) H 01/17/24 12:25
Most recent labs reviewed.
Micro Results:
01/18/24 10:55 Blood Culture - Preliminary
Blood/Venous No Growth in 24 hours- Final report to follow
01/19/24 05:28 Blood Culture - Pending
Blood/Venous
01/17/24 16:52 Blood Culture - Preliminary
Blood/Venous Streptococcus species
Gram Stain - Final
01/17/24 16:52 Blood Culture - Preliminary
Blood/Venous Positive culture in progress
Gram Stain - Final
01/18/24 12:15 Blood Culture - Pending
Blood/Venous
[2024-01-19] MEDS: HEPARIN 25000 UNITS/250 ML IV (12:21)
--- NOTE | 2024-01-19 13:03 | W.PN.CD ---
Today's Communication / Plan
-
cont abx
STEPHANIE on Sunday
Impression / Plan
-
58-year-old male with past medical history of asthma who was initially admitted for left lower extremity cellulitis. He was found to have gram-positive bacteremia and an echocardiogram showed severe mitral regurgitation with thickening of the
anterior and posterior leaflets concerning for endocarditis, as well as a possible torn chordae versus vegetation attached to the posterior leaflet. Additionally, he now has moderate AI which thickened aortic valve cusps in the setting of
bacteremia this is concerning for additional endocarditis of the aortic valve.
Likely endocardities of the MV and possibly AV with severe MR and mod AI
- Cardiac surgery consult
- STEPHANIE on 01/20/2024, NPO after midnight on 01/19/2024
- Abx per primary
- ECG no advanced AV block SR
DVT
- per primary on heparin gtt
Migrating polyarthritis
- Elevated CRP and ESR
hyponatremia - per primary
Asthma
Physical Exam
Vital Signs/Labs
Vital Signs
Temp Pulse Resp BP Pulse Ox
97.6 F 84 16 109/63 99
01/19/24 11:00 01/19/24 11:00 01/19/24 11:00 01/19/24 11:00 01/19/24 10:29
01/18/24 01/19/24 01/20/24
06:59 06:59 06:59
Actual Weight 154 lb 155 lb 2 oz
01/19/24 05:28
01/19/24 05:28
PT 14.4 Sec (11.4-14.6) 01/19/24 05:28
INR 1.11 01/19/24 05:28
APTT 74.7 Sec (23.4-35.0) H 01/19/24 08:36
Physical Exam
Constitutional: No acute distress
EENT: Anicteric
Cardiovascular: Rhythm & rate is regular
Respiratory: Respiratory effort normal and Lungs clear to auscul.
GI: Soft
Neuro/Psych: AO x 3
Data Reviewed
-
Date of Service: January 19, 2024
EKG: Tracing Personally Visualized and interpreted
Labs: Labs Reviewed by me
[2024-01-19 15:25] LABS: APTT 41.6 Sec (23.4-35.0)
[2024-01-19 16:00] VITALS: BP 117/65
--- NOTE | 2024-01-19 16:01 | CM ---
Chart reviewed. Spoke with pt and at bedside
Pt lives with in a 2 story home
Currently on leave from work, was driving
DME includes CPAP, crutches and cane
Has had out patient PT, denies HH/SNF
Has ride at d/c
PCP - Dr Horn
Pharm - [facility]
CM will follow for d/c needs
Plan - anticipate home no needs
[2024-01-19] MEDS: STERILE WATER FOR INJECTION 20 ML IV (17:30)
[2024-01-19] MEDS: ROCEPHIN 2000 MG IV (17:31)
[2024-01-19 19:38] VITALS: BP 127/66
[2024-01-19] MEDS: MIRALAX PO (20:38)
[2024-01-19] MEDS: SENOKOT-S PO (20:38)
[2024-01-19 22:36] LABS: APTT 93.1 Sec (23.4-35.0)
[2024-01-19 23:03] VITALS: BP 118/70
[2024-01-20] MEDS: HEPARIN 25000 UNITS/250 ML IV ×2 (02:55→16:53)
[2024-01-20 03:08] LABS: ANA, IgG Reflex to HEp-2 None Detected (None Detected)
[2024-01-20 03:31] VITALS: BP 114/67
[2024-01-20 05:54] LABS: Hematocrit 34.8 % (39.0-52.0); Hemoglobin 11.5 g/dL (13.0-18.0); Mean Corpuscular Hgb 28.4 pg (27.0-31.0); Mean Corpuscular Volume 85.9 fL (80.0-94.0); Mean Platelet Volume 9.2 fL (7.4-10.4); Platelet Count 336 10^3/uL (130-400); Red Blood Cell Count 4.05 10^6/uL (4.70-6.10); Red Cell Dist. Width 14.7 % (11.5-14.5); White Blood Cell Count 7.7 10^3/uL (4.8-10.8)
[2024-01-20 06:11] LABS: APTT 77.7 Sec (23.4-35.0)
[2024-01-20 06:19] LABS: Blood Urea Nitrogen 16 mg/dl (9-20); Calcium 8.7 mg/dl (8.4-10.2); Carbon Dioxide 28 mmol/L (22-30); Chloride 105 mmol/L (98-107); Estimated Creatinine Clearance > 125 ml/min; Glucose 112 mg/dl (70-99); Potassium 4.4 mmol/L (3.5-5.1); Sodium 137 mmol/L (135-145); eGFR > 60.00
[2024-01-20 06:32] VITALS: BMI 22.3
[2024-01-20 07:00] VITALS: BP 121/71
[2024-01-20] MEDS: SPIRIVA RESPIMAT 2.5 MCG 2 PUFF INH (07:41)
[2024-01-20] MEDS: STRIVERDI RESPIMAT 2 PUFF INH (07:41)
[2024-01-20] MEDS: MIRALAX PO (07:58)
[2024-01-20] MEDS: SENOKOT-S PO (07:58)
[2024-01-20] MEDS: TYLENOL 1000 MG PO ×3 (07:59→21:53)
--- NOTE | 2024-01-20 08:11 | W.PN.HOSP.TC ---
Today's Communication/Plan
-
For STEPHANIE tomorrow
Assessment / Plan
Assessment / Plan
HPI: 58-year-old male with a past medical history of asthma presents with a 1 day history of left lower extremity pain, swelling, erythema.�
Ultrasound is positive for left posterior tibial vein DVT.
#Strep bovis bacteremia
#Subacute endocarditis of the MV and possibly AV with severe MR and mod AI
Appreciate ID, cardiology, CT surgery input
For STEPHANIE Sunday, monitor in telemetry
Continue IV Rocephin, repeat blood cultures NTD
Strep bovis bacteremia/endocarditis is associated with colon cancer�he will need outpatient colonoscopy if he has not had one
#Migrating polyarthritis
CRP elevated at 199, possibly from septic emboli from bacterial endocarditis
Status post right wrist steroid injection on 01/15
Follow-up CHARISSA and RF, send out test
Follow-up with rheumatology outpatient
#Acute left lower extremity DVT
Deep venous thrombosis in a left posterior tibial vein
Risk factors include smoking and possible malignany (high PSA being worked up outpt)
Eliquis on hold, continue IV heparin
#Elevated PSA
Has outpatient MRI scheduled on 01/22/2024
Has outpatient follow-up with Dr. Laurent
#Acute on chronic hyponatremia
Suspect due to excess ADH release from pain
TSH and cortisol normal
Sodium 137 today, was 137, 133, was 127, was 133 upon admission
S/p fluid restriction, monitor sodium
#Constipation
Resolved, continue bowel regimen
#History of asthma
Nebs from home continued
DVT prophylaxis�IV heparin drip
Full code
Updated at bedside 01/19
Physical Exam
General: No acute distress
HEENT: Normocephalic, Atraumatic, EOMI, MMM
Respiratory: Clear to Auscultation bilaterally
Cardiac: Normal S1/S2, Regular Rate and Rhythm
GI: Soft, Nontender, Nondistended, Normal Bowel Sounds
Extremities: No Clubbing, Cyanosis
Left lower extremity edema and tenderness noted, erythema on admission resolved
Neuro: Nonfocal/Grossly Intact
Msk: Right wrist in splint
Anticipated Discharge: > 48 hours
Subjective/Interval History
-
Date of Service: January 20, 2024
Patient feels better today. His pain is improving. No chest pain, shortness of breath, or palpitations. No fever.
Objective Data
-
Labs:
Laboratory Results
01/19/24 01/20/24
22:17 05:37
WBC 7.7
Hgb 11.5 L
Hct 34.8 L
Plt Count 336
APTT 93.1 H 77.7 H
Sodium 137
Potassium 4.4
Chloride 105
Carbon Dioxide 28
BUN 16
Creatinine 0.5 L
Glucose 112 H
Calcium 8.7
Vital Signs:
Vital Signs
Temp Pulse Resp BP Pulse Ox
97.5 F 89 16 121/71 98
01/20/24 07:00 01/20/24 07:45 01/20/24 07:45 01/20/24 07:00 01/20/24 07:45
I&O
01/19/24 01/20/24 01/21/24
06:59 06:59 06:59
Intake Total 1440 / 1440 940 / 940
Output Total 1250 / 1250 700 / 700
Balance 190 / 190 240 / 240
[2024-01-20 11:00] VITALS: BP 121/66
--- NOTE | 2024-01-20 12:29 | W.PN.CD ---
Today's Communication / Plan
-
npo for STEPHANIE Tomorrow
Impression / Plan
-
58-year-old male with past medical history of asthma who was initially admitted for left lower extremity cellulitis. He was found to have gram-positive bacteremia and an echocardiogram showed severe mitral regurgitation with thickening of the
anterior and posterior leaflets concerning for endocarditis, as well as a possible torn chordae versus vegetation attached to the posterior leaflet. Additionally, he now has moderate AI which thickened aortic valve cusps in the setting of
bacteremia this is concerning for additional endocarditis of the aortic valve.
Likely endocardities of the MV and possibly AV with severe MR and mod AI
- Cardiac surgery consult
- STEPHANIE on 01/20/2024, NPO after midnight on 01/19/2024
- Abx per primary
- ECG no advanced AV block SR
DVT
- per primary on heparin gtt
Migrating polyarthritis
- Elevated CRP and ESR
hyponatremia - per primary
Asthma
Physical Exam
Vital Signs/Labs
Vital Signs
Temp Pulse Resp BP Pulse Ox
98.0 F 83 17 121/66 97
01/20/24 11:00 01/20/24 11:00 01/20/24 11:00 01/20/24 11:00 01/20/24 11:00
01/19/24 01/20/24 01/21/24
06:59 06:59 06:59
Actual Weight 155 lb 2 oz 155 lb 4 oz
01/20/24 05:37
01/20/24 05:37
PT 14.4 Sec (11.4-14.6) 01/19/24 05:28
INR 1.11 01/19/24 05:28
APTT 77.7 Sec (23.4-35.0) H 01/20/24 05:37
Physical Exam
Constitutional: No acute distress
Cardiovascular: Rhythm & rate is regular and Pedal edema present
Respiratory: Respiratory effort normal and Lungs clear to auscul.
GI: Soft
Neuro/Psych: AO x 3
Data Reviewed
-
Date of Service: January 20, 2024
EKG: Tracing Personally Visualized and interpreted
Labs: Labs Reviewed by me
--- NOTE | 2024-01-20 13:48 | W.PN.ID1 ---
Date of Service
Date of Service: January 20, 2024
Today's Communication
STEPHANIE tomorrow.
Outpt colonoscopy
Continue ceftriaxone.
Assessment / Plan
Strep bovis Bacteremia
LLE DVT; history suggestive of previous DVTs (not confirmed)
Right Hip Hardwear - asymptomatic
Suspect previous DVTs of the RUE and LLE, note history of elevated PSA (20s by report)
-TTE: Anterior and posterior leaflet thickening of the MV concerning for possible vegetation.� Possible torn chordae versus vegetation attached to the posterior leaflet.� Severe mitral regurgitation.
�Thickened aortic valve leaflets concerning for possible endocarditis
-Orthopantogram - negative
- leukocytosis may have been due to steroid injection, resolved
- repeat blood cultures x2 neg thus far
- minimal dependant erythema of the left ankle along with edema resolved. ROM intact.
- STEPHANIE Sunday, appreciate cardiology.
-Continue ceftriaxone 2gIV q24.
- Discussed with pt and that Strep bovis is often associated with colon neoplasm. He reports last colonoscopy in 2015 was normal.
I recommend he schedule repeat outpt colonoscopy [facility].
Chief Complaint
-: Bacteremia
Subjective / Review of Systems
Ankle pain resolved. Ambulated without cane today.
Vital Signs / Physical Exam
Vital Signs
Vital Signs
Temp Pulse Resp BP Pulse Ox
98.0 F 83 17 121/66 97
01/20/24 11:00 01/20/24 11:00 01/20/24 11:00 01/20/24 11:00 01/20/24 11:00
Physical Exam
Constitutional: No Acute Distress
Cardiovascular: Regular Rate and S1/S2
Pulmonary: Clear
Gastrointestinal: Soft, Non Tender, Non Distended and Normal Bowel Sounds
Musculoskeletal: Other (left ankle medial erythema resolved; ROM intact)
Neurological: AO x 3
Objective Data
Lab Data
Lab Results
01/20/24 05:37
01/20/24 05:37
ESR 46 mm/hour (0-20) H 01/17/24 12:25
PT 14.4 Sec (11.4-14.6) 01/19/24 05:28
INR 1.11 01/19/24 05:28
APTT 77.7 Sec (23.4-35.0) H 01/20/24 05:37
Estimated Creat Clear > 125 ml/min 01/20/24 05:37
Total Bilirubin 0.2 mg/dl (0.2-1.3) 01/19/24 05:28
AST 86 U/L (17-59) H 01/19/24 05:28
ALT 97 U/L (0-50) H 01/19/24 05:28
Alkaline Phosphatase 166 U/L (38-126) H 01/19/24 05:28
C-Reactive Protein 199.90 mg/L (0.0-10.00) H 01/17/24 12:25
Most recent labs reviewed.
Micro Results:
01/17/24 16:52 Blood Culture - Final
Blood/Venous Streptococcus bovis
Gram Stain - Final
01/17/24 16:52 Blood Culture - Final
Blood/Venous Streptococcus bovis
Gram Stain - Final
01/18/24 12:15 Blood Culture - Preliminary
Blood/Venous No Growth in 48 hours- Final report to follow
01/18/24 10:55 Blood Culture - Preliminary
Blood/Venous No Growth in 48 hours- Final report to follow
01/19/24 05:28 Blood Culture - Preliminary
Blood/Venous No Growth in 24 hours- Final report to follow
[2024-01-20 15:00] VITALS: BP 116/72
[2024-01-20] MEDS: STERILE WATER FOR INJECTION 20 ML IV (17:09)
[2024-01-20] MEDS: ROCEPHIN 2000 MG IV (17:16)
[2024-01-20 19:00] VITALS: BP 117/66
[2024-01-20 23:50] VITALS: BP 125/65
[2024-01-21 03:09] VITALS: BP 101/57
[2024-01-21 05:50] LABS: Hematocrit 35.7 % (39.0-52.0); Hemoglobin 11.4 g/dL (13.0-18.0); Mean Corp Hgb Conc. 31.9 g/dL (33.0-37.0); Mean Corpuscular Hgb 27.8 pg (27.0-31.0); Mean Corpuscular Volume 87.1 fL (80.0-94.0); Mean Platelet Volume 9.2 fL (7.4-10.4); Platelet Count 342 10^3/uL (130-400); Red Cell Dist. Width 14.6 % (11.5-14.5); White Blood Cell Count 8.2 10^3/uL (4.8-10.8)
[2024-01-21] MEDS: HEPARIN 25000 UNITS/250 ML IV (05:55)
[2024-01-21 05:58] LABS: APTT 76.2 Sec (23.4-35.0)
[2024-01-21 06:12] LABS: Blood Urea Nitrogen 11 mg/dl (9-20); Calcium 8.6 mg/dl (8.4-10.2); Carbon Dioxide 28 mmol/L (22-30); Chloride 105 mmol/L (98-107); Estimated Creatinine Clearance > 125 ml/min; Glucose 125 mg/dl (70-99); Potassium 4.5 mmol/L (3.5-5.1); Sodium 137 mmol/L (135-145); eGFR > 60.00
[2024-01-21 07:00] VITALS: BP 109/62
[2024-01-21] MEDS: TYLENOL 1000 MG PO ×3 (07:23→21:43)
[2024-01-21] MEDS: STRIVERDI RESPIMAT 2 PUFF INH (07:38)
[2024-01-21] MEDS: SPIRIVA RESPIMAT 2.5 MCG 2 PUFF INH (07:38)
--- NOTE | 2024-01-21 10:12 | W.PN.HOSP.TC ---
Today's Communication/Plan
-
GI consulted
for [facility] tomorrow
continue heparin drip
Assessment / Plan
Assessment / Plan
STEPHANIE
Normal left ventricular size, thickness, and systolic function. Left ventricular ejection fraction is 55-60%. Biatrial lodgment.
No thrombus detected in the left atrial appendage.�Mildly thickened mitral valve leaflets.� Torn chordae with partial flail posterior mitral valve leaflet.� Evidence of mobile echodensity consistent with vegetation posterior mitral valve leaflet.�
Severe mitral regurgitation.�
Evidence of flow reversal in the right and left upper pulmonary veins. Trileaflet aortic valve with suspicious echodensity for vegetation on the tips of the right and noncoronary cusps. There is moderate aortic regurgitation. Mild tricuspid
regurgitation.

#Strep bovis bacteremia
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
# Mitral regurgitation with chordae tendon rupture
Appreciate ID, cardiology, CT surgery input
STEPHANIE report as above
Continue IV Rocephin, repeat blood cultures NTD
GI involved in eval for possible need of colonoscopy
CT surgery offered to do valvular surgery on Sunday although patient hesitant and wants to be home for few days before electively going in for surgery.
Carotid ultrasound report pending
Patient plan to get left heart catheterization tomorrow
#Migrating polyarthritis
CRP elevated at 199, possibly from septic emboli from bacterial endocarditis
Status post right wrist steroid injection on 01/15
CHARISSA neg. RF level pending
Follow-up with rheumatology outpatient
#Acute left lower extremity DVT
Deep venous thrombosis in a left posterior tibial vein
Risk factors include smoking and possible malignany (high PSA being worked up outpt)
Eliquis on hold, continue IV heparin
#Elevated PSA
Has outpatient MRI scheduled on 01/22/2024
Has outpatient follow-up with Dr. Laurent
#Acute on chronic hyponatremia
Suspect due to excess ADH release from pain
TSH and cortisol normal
Sodium 137 today
S/p fluid restriction, monitor sodium
#Constipation
Resolved, continue bowel regimen
#History of asthma
Nebs from home continued
DVT prophylaxis�IV heparin drip
Full code
Discussed with ID/GI/CTS/cardiology
Total time spent : 52 mins
I personally saw and examined the patient.
I have reviewed all diagnostic interpretations and treatment plans as written.
Time includes patient management by me, time spent at the patients bedside, time to review lab and imaging results, discussing patient care, documentation in the medical record, and time spent with the family or caregiver and discussing care plan
with RN/Consultants.
Anticipated Discharge: > 48 hours
Subjective/Interval History
-
Date of Service: January 21, 2024
Patient examined after STEPHANIE.
Voicing sleep disturbance with not using CPAP here.
afebrile overnight
Objective Data
-
Labs:
Laboratory Results
01/21/24
05:21
WBC 8.2
Hgb 11.4 L
Hct 35.7 L
Plt Count 342
APTT 76.2 H
Sodium 137
Potassium 4.5
Chloride 105
Carbon Dioxide 28
BUN 11
Creatinine 0.6 L
Glucose 125 H
Calcium 8.6
Vital Signs:
Vital Signs
Temp Pulse Resp BP Pulse Ox
97.7 F 80 20 109/62 99
01/21/24 07:00 01/21/24 07:45 01/21/24 07:45 01/21/24 07:00 03/04/24 07:45
I&O
01/20/24 01/21/24 01/22/24
06:59 06:59 06:59
Intake Total 940 / 940 720 / 720
Output Total 700 / 700
Balance 240 / 240 720 / 720
Review of Systems
-
Respiratory: Reports No Symptoms
Cardiac: Reports No Symptoms
Abdomen/GI: Reports No Symptoms
Physical Exam
-
General: Negative Comfortable
HEENT: Oxygen
Respiratory: Clear to Auscultation
Cardiac: Regular Rhythm and S1/S2; Negative Murmur or Rub
GI: Soft, Nontender and Nondistended
Musculoskeletal: No Edema
Neuro: Awake, Alert, Oriented, No Motor Deficits and Nonfocal/Grossly Intact
Psych: Calm
[2024-01-21 10:19] VITALS: BP 118/62
--- NOTE | 2024-01-21 13:54 | W.PN.ID1 ---
Addendum entered and electronically signed by Jocelyne Escobar MD 01/21/24 16:51:
with plans for cath tomorrow will hold on ct a/p (contrast) for now
Original Note:
Date of Service
Date of Service: January 21, 2024
Today's Communication
continue ceftriaxone
Assessment / Plan
Strep bovis Bacteremia
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
LLE DVT; history suggestive of previous DVTs (not confirmed)
Right Hip Hardwear - asymptomatic
-TTE: Anterior and posterior leaflet thickening of the MV concerning for possible vegetation.� Possible torn chordae versus vegetation attached to the posterior leaflet.� Severe mitral regurgitation.
�Thickened aortic valve leaflets concerning for possible endocarditis
- Orthopantogram - negative
- repeat blood cultures x2 neg thus far
- STEPHANIE reviewed - similar to TTE
- if taken for valve replacement please send portion of valve for culture; note two valves with involvement - mitral and aortic
- Continue ceftriaxone 2gIV q24 - duration pending clinical course - up to 6 weeks of IV therapy
- script given to field case manager
- PICC when approaching discharge
- Discussed with pt and that Strep bovis (gallolyticus) is often associated with GI neoplasm. He reports last colonoscopy in 2015 was normal
- would also obtain CT a/p with oral and IV contrast
- agree with colonoscopy and egd early outpatient while still on IV antibiotics vs inpatient
- reviewed briefly with Dr Laurent (urology) at patient request - he agrees with managing the the endocarditis first then addressing the elevated psa
- follow clinically
Patient seems fixated on the idea that he will be discharged and 'go home for a few days to get my head on straight' and then come back for surgery. His bacteremia has cleared. He clearly articulates to me risks of CHF, embolization, stroke,
progression, 'and Im willing to take that.' Reviewed with the team and will begin checking the cost of OPAT. Notified field case manager.
Chief Complaint
-: Bacteremia and Other (endocarditis)
Subjective / Review of Systems
afebrile
bp stable
without leukocytosis
cr stable
01/17 blood cultures no growth to date
sitting up in bed
no dyspnea
L ankle no longer erythematous
Vital Signs / Physical Exam
Vital Signs
Vital Signs
Temp Pulse Resp BP Pulse Ox
97.8 F 79 18 118/62 95
01/21/24 10:19 01/21/24 10:19 01/21/24 10:19 01/21/24 10:19 01/21/24 10:19
Physical Exam
Constitutional: No Acute Distress
Cardiovascular: Regular Rate and S1/S2; Negative Murmur or Rub
Pulmonary: Clear and Symmetric; Negative Wheezes or Rales
Gastrointestinal: Soft, Non Tender, Non Distended and Normal Bowel Sounds
Extremities: Other (L ankle no longer swollen, no erythema)
Skin: Warm and Dry; Negative Rash or Jaundice
Objective Data
Lab Data
Lab Results
01/21/24 05:21
01/21/24 05:21
ESR 46 mm/hour (0-20) H 01/17/24 12:25
PT 14.4 Sec (11.4-14.6) 01/19/24 05:28
INR 1.11 01/19/24 05:28
APTT 76.2 Sec (23.4-35.0) H 01/21/24 05:21
Estimated Creat Clear > 125 ml/min 01/21/24 05:21
Total Bilirubin 0.2 mg/dl (0.2-1.3) 01/19/24 05:28
AST 86 U/L (17-59) H 01/19/24 05:28
ALT 97 U/L (0-50) H 01/19/24 05:28
Alkaline Phosphatase 166 U/L (38-126) H 01/19/24 05:28
C-Reactive Protein 199.90 mg/L (0.0-10.00) H 01/17/24 12:25
Most recent labs reviewed.
Micro Results:
01/18/24 12:15 Blood Culture - Preliminary
Blood/Venous No Growth in 72 hours- Final report to follow
01/18/24 10:55 Blood Culture - Preliminary
Blood/Venous No Growth in 72 hours- Final report to follow
01/19/24 05:28 Blood Culture - Preliminary
Blood/Venous No Growth in 48 hours- Final report to follow
01/17/24 16:52 Blood Culture - Final
Blood/Venous Streptococcus bovis
Gram Stain - Final
01/17/24 16:52 Blood Culture - Final
Blood/Venous Streptococcus bovis
Gram Stain - Final
Care Review
Plan reviewed with: Physician (CT surgery, Dr Sherman, Dr Andrade)
[2024-01-21 14:33] VITALS: BP 121/65
[2024-01-21] MEDS: OMNIPAQUE 50 ML PO (15:18)
--- NOTE | 2024-01-21 15:22 | W.PN.UPDATE ---
Update Note
Progress Note Update
CARDIAC SURGERY ATTENDING:
It was my pleasure to evaluate Mr. González Aggarwal. I had a long discussion with him and his at bedside today regarding his mitral and aortic valve endocarditis. Given the structural appearance of both of these valves, 2 valve replacement
will be required. I briefly reviewed the necessary surgical procedure and expected recovery period with Mr. Aggarwal and his . At this time, Mr. Aggarwal was quite hesitant to proceed with expedited surgical intervention. Numerous times
during our conversation, he mentioned returning as an outpatient. Fortunately, at this time he does not have any class I indications for early surgery (Staph aureus, fungal, or highly resistant organism, heart block/aortic abscess/penetrating
lesion, heart failure, persistent bacteremia despite antibiotics). Given his family history of CAD, it is prudent to evaluate his coronaries. Speaking with my cardiology colleagues, it appears that he has been preemptively scheduled for cardiac
catheterization tomorrow. I will continue to have multidisciplinary discussions with my cardiology and infectious disease colleagues to reach a consensus regarding operative timing. We could tentatively proceed to surgery this coming Sunday, but
at this time is not clear the patient will consent to the treatment plan.
I will continue to follow closely with all involved.
Please call with any questions or concerns.
Chandu Rashid MD
[phone]
--- NOTE | 2024-01-21 16:26 | CON.GI ---
Addendum entered and electronically signed by Katharine Adorno MD 01/21/24 18:19:
I saw and examined the patient.
The LEGAL SPECIALIST or PA's note was reviewed and I agree with the note.
Comment:
Pt with a complicated recent hx of joint pain, dvt, endocarditis, strep bovis bacteremia. Pt has no gi complaints. He did have a colonoscopy in 2017 which was essentially normal except diverticulosis.
abd: soft, nontender
impression:
strep bovis bacteremia
plan:
Pt has multiple tests planned including cardiac cath tomorrow. He will need both and egd and colonscopy to evaluate for underlying lesions as he has strep bovis. Discussed at length with patient and we will work with both him and CT surgery,
cardiology and ID for the appropriate timing of the test. He ideally should be off anticoagulation at the time.
Original Note:
Consultation
-
Date/Time Consultation Requested: 01/21/2024
Date/Time Consultation Performed: 01/21/2024 @ 16:30
Requesting Provider: Dr. Andrade
Performing Provider: JOSE Aguilar; Dr. Adorno
Reason for Consultation: bacteremia with strep bovis, ?inpatient colonoscopy
Medical History
Chief Complaint / HPI
Chief Complaint: LLE cellulitis, pain/rash
History of Present Illness:
The patient is a 58-year-old male with a past medical history significant for asthma, who presented to the emergency room on with complaints of swelling and rash to the left foot and left lower leg. Upon review of admitting records he had an
ongoing workup outpatient for the presenting reason with an appointment for an MRI, but has had ongoing joint pain since then. He did undergo an ultrasound of the left lower extremity which did show a thrombus in the left posterior tibial vein. He
was admitted for further evaluation and workup and started on Eliquis. He was also started on cefazolin for cellulitis. He had blood cultures on admission which did show Streptococcus bovis and therefore infectious disease was consulted. CRP was
also elevated. CHARISSA and rheumatoid factor were sent out and pending. A TTE was recommended which did show concern for possible mitral valve vegetation with severe mitral regurgitation and a thickened aortic valve leaflets concerning for possible
endocarditis. Cardiology and CT surgery were then consulted and recommended he undergo a STEPHANIE for further evaluation. He was started on IV heparin and Eliquis was placed on hold for procedures. Also of note had an elevated PSA and was scheduled
for an outpatient MRI on 01/21. He underwent STEPHANIE today which did confirm vegetation with concern for mitral and aortic valve endocarditis. CT surgery notes indicate he will need double valve replacement. He is pending cardiac catheterization
tomorrow for tentative valve surgery to be determined. We are being asked to evaluate for endoscopic evaluation with EGD and colonoscopy to rule out bacteremia source. Upon review of present illness with the patient, he notes that he has been
having ongoing rheumatologic issues since September with various joint pains and aches. He notes he has been under evaluation with his PCP and was pending a rheumatology evaluation this week. He notes he had been on intermittent pain medications
with pain waxing and waning but has been having worsening discomfort and swelling of the left lower extremity. Also reported with a rash which prompted hospital evaluation. He denies any chronic constipation but notes he had been constipated right
before admission due to use of narcotics for his pain. He typically has several bowel movements daily without any melena, hematochezia, or diarrhea. He admits to some nausea with a dose of antibiotics yesterday but otherwise denies any nausea,
vomiting, dysphagia, odynophagia, or abdominal pain. He admits to about 10 pounds of weight loss as his appetite has been reduced as he has not been feeling mentally or physically well. He does admit to occasional heartburn with certain foods but
does not take any medications regularly for this. He denies use of blood thinners. He denies any daily use of NSAIDs. He does admit to a history of heavy alcohol use in the past but stopped drinking in 2003. He does admit to smoking 10
cigarettes/day prior to his admission. He admits to marijuana use in the past but denies any history of IV drug use. His last colonoscopy was done in [address] Worthington in which he had several hyperplastic polyps removed and was advised on a
10-year repeat. He has never had an upper endoscopy in the past. He admits to family history significant for father who had lung cancer and currently is undergoing treatment for some type of blood cancer. His mother had an extensive medical
history but no reported colon cancer. Prior surgery includes orthopedic surgeries.
Past Medical History
Past Medical History: Asthma and Other (Seasonal allergies, current cigarette smoker, history of heavy alcohol use quit in 1999)
Social History
Tobacco: Smoker (10 cigarettes/day)
Alcohol: Former (Former heavy use in 2003 has not drank since then)
Drug: None
Personal:
Living: With Family
Family History
Family History: Reviewed & Not Pertinent
Allergies / Home Medications
Allergy/AdvReac Type Severity Reaction Status Date / Time
No Known Allergies Allergy Verified 01/17/24 10:26
Medication Instructions Recorded
albuterol sulfate 90 mcg/actuation 2 puff inhalation R Q4HPRN PRN sob 01/17/24
aerosol inhaler
cyclobenzaprine 10 mg tablet 10 mg PO ONCE PRN muscle relaxer 01/17/24
gabapentin 1 cap PO BIDPRN PRN mild pain 01/17/24
ibuprofen 200 mg tablet (Advil) 400 mg PO DAILYPRN PRN mild pain 01/17/24
zmlswqtc-qsgdgm-vlben extract 5 6 cap PO DAILY Supplement 01/17/24
mg-6 mg-150 mg capsule (Fruit and
Vegetable Daily)
tramadol 50 mg tablet 50 mg PO Q6H PRN severe pain 01/17/24
umeclidinium 62.5 mcg-vilanterol 1 inh inhalation R DAILY 01/17/24
25 mcg/actuation powdr for Lung/Breathing Issues
inhalation (Anoro Ellipta)
Review of Systems
-
History Source: Patient
Constitutional: Reports Weight Loss and Fatigue
EENT: Reports No Symptoms
Respiratory: Reports No Symptoms
Cardiac: Reports No Symptoms
Abdomen/GI: Reports Constipated (Resolved) and Other (Decreased appetite)
: Reports No Symptoms
Musculoskeletal: Reports Joint Pain
Skin: Reports Rash (Left lower extremity, resolving)
Neurological: Reports Weakness
Vital Signs
Temp Pulse Resp BP Pulse Ox
97.7 F 91 18 121/65 97
01/21/24 14:33 01/21/24 14:33 01/21/24 14:33 01/21/24 14:33 01/21/24 14:33
Physical Exam
Exam
General: Well Developed, Well Nourished and No Apparent Distress
HEENT: Normocephalic, Anicteric and Atraumatic
Respiratory: Clear
Cardiac: S1/S2 and Regular Rhythm
GI: Soft, Non Tender, Non Distended and Normal Bowel Sounds
Rectal: Deferred by Provider
Musculoskeletal: No Edema
Skin: Warm and Dry
Neuro: Awake, Alert and Oriented
Psych: Calm
Results
WBC 8.2 10^3/uL (4.8-10.8) 01/21/24 05:21
Hgb 11.4 g/dL (13.0-18.0) L 01/21/24 05:21
Hct 35.7 % (39.0-52.0) L 01/21/24 05:21
MCV 87.1 fL (80.0-94.0) 01/21/24 05:21
Plt Count 342 10^3/uL (130-400) 01/21/24 05:21
Absolute Neuts (auto) 9.7 10^3/uL (1.4-6.5) H 01/17/24 12:25
PT 14.4 Sec (11.4-14.6) 01/19/24 05:28
INR 1.11 01/19/24 05:28
APTT 76.2 Sec (23.4-35.0) H 01/21/24 05:21
Sodium 137 mmol/L (135-145) 01/21/24 05:21
Potassium 4.5 mmol/L (3.5-5.1) 01/21/24 05:21
Chloride 105 mmol/L (98-107) 01/21/24 05:21
Carbon Dioxide 28 mmol/L (22-30) 01/21/24 05:21
BUN 11 mg/dl (9-20) 01/21/24 05:21
Creatinine 0.6 mg/dL (0.7-1.3) L 01/21/24 05:21
Calcium 8.6 mg/dl (8.4-10.2) 01/21/24 05:21
Total Bilirubin 0.2 mg/dl (0.2-1.3) 01/19/24 05:28
AST 86 U/L (17-59) H 01/19/24 05:28
ALT 97 U/L (0-50) H 01/19/24 05:28
Alkaline Phosphatase 166 U/L (38-126) H 01/19/24 05:28
Diagnostic Image Results:
Prior GI Procedures:
EGD: none
Colonoscopy: 2017, Dr. Worthington, Two 3 to 4 mm hyperplastic polyps in the rectum. Biopsied.
�� � � � � � � � � � - Minimal diverticulosis in the sigmoid colon.
�� � � � � � � � � � - The examined portion of the ileum was normal.
Assessment / Plan
-
The patient is a 58-year-old male with a past medical history significant for asthma, who presented to the emergency room on with complaints of swelling and rash to the left foot and left lower leg. With complex hospital course as above, with
findings for aortic and mitral valve endocarditis with vegetation requiring double valve replacement. Also with a left lower extremity DVT currently on heparin drip. Findings of Streptococcus bovis bacteremia being followed with ID of unclear
source. Started on antibiotics currently on ceftriaxone. We are being asked to evaluate for role for EGD and colonoscopy to determine source of bacteremia. The patient did have a colonoscopy in 2017 which did show hyperplastic polyps and
diverticulosis otherwise no significant findings. He has never had an upper endoscopy. No report of high risk behaviors.
Problem list:
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
-Strep bovis bacteremia of unclear etiology, repeat cultures negative to date
-Left lower extremity DVT, started on heparin drip
-Acute on chronic joint pains
-Elevated CRP
-Mild normocytic anemia
-Abnormal LFTs
-Positive rheumatoid factor
-History of asthma
Recommendations:
-Etiology of bacteremia unclear. Currently the team is recommending EGD and colonoscopy for evaluation for source.
-To determine timing with the short range air defense artillery and cardiac surgeon
-Discussed with the patient at the bedside with Dr. Adorno who is agreeable for endoscopic evaluation when deemed appropriate by the medical team, per infectious disease would be recommended within the next 3 to 4 weeks.
-Await cardiac catheterization which is being done tomorrow
-Infectious disease is also following
-Noted with abnormal LFTs, will add hepatitis serologies
-Timing for endoscopic procedures to be determined pending the above workup
-
-
Thank you for consultation and allowing me to participate in the patient's care. Please call the vice president of instruction GI physician during the after hours with any questions or concerns.
[2024-01-21 16:59] LABS: Rheumatoid Agg. Semi-quant 128 IU; Rheumatoid Agglutinin Positive (<10 IU)
--- NOTE | 2024-01-21 17:25 | W.PN.CT ---
Today's Communication / Plan
-
STEPHANIE complete
[facility]HC tomorrow
Surgery date TBD
Assessment / Plan
-
#Severe MR and Moderate AR
-STEPHANIE today showed torn chordae with partial flail posterior mitral valve leaflet.� Evidence of mobile echodensity consistent with vegetation posterior mitral valve leaflet.� Severe mitral regurgitation.�Evidence of flow reversal in the right and
left upper pulmonary veins. Trileaflet aortic valve with suspicious echodensity for vegetation on the tips of the right and noncoronary cusps. There is moderate aortic regurgitation. Mild tricuspid regurgitation.
- Patient for [facility] tomorrow
- Surgery date TBD; continue multidisciplinary discussions.
#DVT
Continue heparin gtt
Subjective
-
Date of Service: January 21, 2024
Objective Data
-
Lab Results
01/21/24 05:21
01/21/24 05:21
PT 14.4 Sec (11.4-14.6) 01/19/24 05:28
INR 1.11 01/19/24 05:28
APTT 76.2 Sec (23.4-35.0) H 01/21/24 05:21
Vital Signs
Vital Signs
Temp Pulse Resp BP Pulse Ox
97.7 F 91 18 121/65 97
01/21/24 14:33 01/21/24 14:33 01/21/24 14:33 01/21/24 14:33 01/21/24 14:33
CT Intake/Output/Weight
01/20/24 01/21/24 01/21/24
18:59 06:59 18:59
Intake Total 720 / 720
Balance 720 / 720
SaO2: 97
--- NOTE | 2024-01-21 17:26 | CM ---
endocarditis [place] valve,on iv rocephin,belen today,for cardiac cath tomorrow.will need 6 weeks op iv abx.sent clinicals to ava at [facility] phone [phone] and fax [phone].
[2024-01-21] MEDS: STERILE WATER FOR INJECTION 20 ML IV (17:55)
[2024-01-21] MEDS: ROCEPHIN 2000 MG IV (17:56)
[2024-01-21 19:25] VITALS: BP 105/71
[2024-01-21 19:53] LABS: APTT 31.7 Sec (23.4-35.0)
[2024-01-21] MEDS: HEPARIN 5600 UNITS IV (20:23)
[2024-01-21] MEDS: MELATONIN 5 MG PO (21:56)
[2024-01-21 23:28] VITALS: BP 116/64
[2024-01-22] VITALS (8 sets, daily range): BP systolic 107–119; BP diastolic 59–77; BMI 22.8
[2024-01-22 02:13] LABS: Hematocrit 34.2 % (39.0-52.0); Hemoglobin 11.4 g/dL (13.0-18.0); Mean Corp Hgb Conc. 33.3 g/dL (33.0-37.0); Mean Corpuscular Hgb 28.3 pg (27.0-31.0); Mean Corpuscular Volume 84.9 fL (80.0-94.0); Platelet Count 350 10^3/uL (130-400); Red Blood Cell Count 4.03 10^6/uL (4.70-6.10); Red Cell Dist. Width 14.8 % (11.5-14.5); White Blood Cell Count 8.3 10^3/uL (4.8-10.8)
[2024-01-22 02:24] LABS: APTT 49.1 Sec (23.4-35.0)
[2024-01-22] MEDS: HEPARIN 5600 UNITS IV (02:30)
[2024-01-22 02:47] LABS: ALT (SGPT) 100 U/L (0-50); AST (SGOT) 84 U/L (17-59); Albumin 2.8 g/dl (3.5-5.0); Alkaline Phosphatase 129 U/L (38-126); Blood Urea Nitrogen 19 mg/dl (9-20); Calcium 8.4 mg/dl (8.4-10.2); Carbon Dioxide 30 mmol/L (22-30); Chloride 103 mmol/L (98-107); Estimated Creatinine Clearance 115 ml/min; Glucose 166 mg/dl (70-99); Potassium 4.2 mmol/L (3.5-5.1); Sodium 139 mmol/L (135-145); Total Bilirubin < 0.1 mg/dl (0.2-1.3); Total Protein 5.8 g/dl (6.3-8.2); eGFR > 60.00
[2024-01-22 03:21] LABS: Hepatitis B Surface Antigen Negative (Negative)
[2024-01-22 03:24] LABS: Hepatitis A IgM Antibody Negative (Negative)
[2024-01-22 03:39] LABS: Hepatitis B Core Ab, Total Negative (Negative); Hepatitis B Surface Antibody Negative; Hepatitis C Antibody Negative (Negative)
[2024-01-22 03:50] LABS: Hepatitis A Antibody, Total Negative (Negative)
[2024-01-22] MEDS: HEPARIN 25000 UNITS/250 ML IV (04:32)
[2024-01-22] MEDS: STRIVERDI RESPIMAT 2 PUFF INH (07:21)
[2024-01-22] MEDS: SPIRIVA RESPIMAT 2.5 MCG 2 PUFF INH (07:22)
[2024-01-22] MEDS: TYLENOL PO (08:41)
[2024-01-22 08:45] LABS: APTT 53.8 Sec (23.4-35.0)
--- NOTE | 2024-01-22 09:14 | ITS.CL.CATH ---
Rolloff Driver - Catheterization
Cardiac Catheterization
Procedure Report:
CARDIAC CATHETERIZATION REPORT
Date of Procedure: 01/22/2024
Referring: Juan Sherman MD
Indication: Aortic valve endocarditis
HEMODYNAMIC DATA
AO: 104/63
LV: Not done
PCWP: 21
PA: 44/23
RV: 44/14
RA: 12
Oximetry: Ao 95%, PA 63%, cardiac output 4.9, cardiac index 2.6
LEFT VENTRICULOGRAPHY: Not done-of note, we did not want to cross the aortic valve due to the presence of an aortic valve vegetation
ASCENDING AORTOGRAPHY: The aortic root and ascending aorta are normal in size. There is 2-3+ aortic insufficiency
CORONARY ANGIOGRAPHY
Dominance: Right
Left Main: Normal
LAD: Normal
Circumflex: Normal
RCA: Normal dominant vessel
Closure Device: None-the procedure was performed via the right radial artery. The Jesse's test was normal prior to the procedure.
Radiation (mGy): 162
DAP (cm2.Gy): 19.5
Fluoroscopy time 7.6 minutes
CONCLUSIONS
1: Elevated filling pressures with mild pulmonary hypertension
2: Moderate aortic insufficiency
3. Normal coronary arteries
4. No current indication for urgent valve surgery for suspected aortic valve and mitral valve endocarditis. The elevated filling pressures do suggest that the mitral valve regurgitation is significant and if there is a plan for prolonged
outpatient antibiotics he will need close follow-up
Copy to: Juan Sherman MD, Bryson Horn, DO
Jabari Grimm MD, [facility], [facility]
--- NOTE | 2024-01-22 11:14 | W.PN.ID1 ---
Date of Service
Date of Service: January 22, 2024
Today's Communication
continue ceftriaxone
will check lfts weekly
Assessment / Plan
Strep bovis Bacteremia - cleared
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
LLE DVT; history suggestive of previous DVTs (not confirmed)
Right Hip Hardwear - asymptomatic
- repeat blood cultures x2 neg thus far
- if taken for valve replacement please send portion of valve for culture; note two valves with involvement - mitral and aortic
- Continue ceftriaxone 2gIV q24 - plan 6 weeks of IV therapy
- script given to case packer
- PICC ordered
- will trend transaminitis weekly
- would also obtain CT a/p with oral and IV contrast when feasible - has been moved to outpatient
- agree with colonoscopy and egd early outpatient while still on IV antibiotics vs inpatient (IE within the next 3-4 weeks)
- follow up in 3-4 weeks; would like to see patient while hospitalized for surgery
Patient remains fixated on the idea that he will be discharged and 'go home for a few days to get my head on straight' and then come back for surgery. His bacteremia has cleared. Reviewed red flags with patient, and adult daughter including
but not limited to fevers, chills, redness, tenderness drainage from the line, shortness of breath, orthopnea, lower extremity edema progressing etc. They understand that if any concerning symptoms he should return to the ER. He again clearly
understands the risks of CHF, embolization, stroke, progression, 'and Im willing to take that risk.' manager forensic assisting with plan
Chief Complaint
-: Bacteremia and Other (endocarditis)
Subjective / Review of Systems
afebrile
bp stable
without leukocytosis, cr stable
ast/ast around 2x ULN, minimally elevated alk phos
blood cultures have cleared
insists on discharge discharge, no contraindication and understands red flags and risks
Vital Signs / Physical Exam
Vital Signs
Vital Signs
Temp Pulse Resp BP Pulse Ox
98.2 F 80 18 107/68 98
01/22/24 10:27 01/22/24 10:27 01/22/24 10:27 01/22/24 10:27 01/22/24 10:27
Physical Exam
Constitutional: No Acute Distress
Cardiovascular: Regular Rate, S1/S2 and Murmur (loudest at rusb); Negative Rub
Pulmonary: Clear and Symmetric; Negative Wheezes or Rales
Gastrointestinal: Soft, Non Tender, Non Distended and Normal Bowel Sounds
Extremities: Other (1+ edema of the LLE, no edema of the RLE)
Skin: Warm and Dry; Negative Rash or Jaundice
Objective Data
Lab Data
Lab Results
01/22/24 02:06
01/22/24 02:06
ESR 46 mm/hour (0-20) H 01/17/24 12:25
PT 14.4 Sec (11.4-14.6) 01/19/24 05:28
INR 1.11 01/19/24 05:28
APTT 53.8 Sec (23.4-35.0) H 01/22/24 08:10
Estimated Creat Clear 115 ml/min 01/22/24 02:06
Total Bilirubin < 0.1 mg/dl (0.2-1.3) L 01/22/24 02:06
AST 84 U/L (17-59) H 01/22/24 02:06
ALT 100 U/L (0-50) H 01/22/24 02:06
Alkaline Phosphatase 129 U/L (38-126) H 01/22/24 02:06
C-Reactive Protein 199.90 mg/L (0.0-10.00) H 01/17/24 12:25
Most recent labs reviewed.
Micro Results:
01/18/24 10:55 Blood Culture - Preliminary
Blood/Venous No Growth in 4 days- Final report to follow
01/19/24 05:28 Blood Culture - Preliminary
Blood/Venous No Growth in 72 hours- Final report to follow
01/18/24 12:15 Blood Culture - Preliminary
Blood/Venous No Growth in 72 hours- Final report to follow
01/17/24 16:52 Blood Culture - Final
Blood/Venous Streptococcus bovis
Gram Stain - Final
01/17/24 16:52 Blood Culture - Final
Blood/Venous Streptococcus bovis
Gram Stain - Final
Care Review
Plan reviewed with: Physician (Dr Andrade - discharge)
--- NOTE | 2024-01-22 11:20 | W.PN.GI.CBS2 ---
Addendum entered and electronically signed by Jelena Barrera MD 01/22/24 14:41:
I saw and examined the patient.
The FIELD TRAFFIC INVESTIGATOR's note was reviewed and I agree with the note.
Comment: Continue antibiotics per ID recommendation patient is going home on a PICC line and possible DC later today discussed with Dr. Andrade and Dr. Escobar, will arrange for outpatient endoscopy and colonoscopy in 3 weeks while on antibiotics.
Noted input from ID agree with follow-up LFTs weekly on antibiotics unclear if abnormal LFTs were related to sepsis with underlying bacteremia and endocarditis with strep bovis and may have seeding in the liver would need CT of the chest, abdomen
and pelvis was initially going to be scheduled tomorrow since he received contrast for the catheterization today, but now will be scheduled as outpatient and told him to get this is soon as possible within the next 1 to 2 weeks prior to his
colonoscopy. Also on Eliquis for lower extremity DVT and will most likely need bridging with Lovenox given recent DVT prior to endoscopic procedures but will defer decision to PCP and cardiology.
Original Note:
Today's Communication / Plan
-
Check CT of the abdomen and pelvis. Eventual EGD and colonoscopy when deemed appropriate by CT surgery/cardiology. Infectious diseases following, on IV antibiotics. Trend LFTs.
Assessment / Plan
-
The patient is a 58-year-old male with a past medical history significant for asthma, who presented to the emergency room on with complaints of swelling and rash to the left foot and left lower leg. With complex hospital course as above, with
findings for aortic and mitral valve endocarditis with vegetation requiring double valve replacement. Also with a left lower extremity DVT currently on heparin drip. Findings of Streptococcus bovis bacteremia being followed with ID of unclear
source. Started on antibiotics currently on ceftriaxone. We are being asked to evaluate for role for EGD and colonoscopy to determine source of bacteremia. The patient did have a colonoscopy in 2017 which did show hyperplastic polyps and
diverticulosis otherwise no significant findings. He has never had an upper endoscopy. No report of high risk behaviors.
Problem list:
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
-Strep bovis bacteremia of unclear etiology, repeat cultures negative to date
-Left lower extremity DVT, started on heparin drip
-Acute on chronic joint pains
-Elevated CRP
-Mild normocytic anemia
-Abnormal LFTs
-Positive rheumatoid factor
-History of asthma
Recommendations:
-Etiology of bacteremia unclear. Currently the medical team is recommending EGD and colonoscopy for evaluation for source.
-He needs eventual endoscopic evaluation when deemed appropriate by the medical team, per infectious disease would be recommended within the next 3 to 4 weeks.
-Discussed with Dr. Andrade, and agree with CT imaging of the abdomen and pelvis which can evaluate the liver with mildly elevated liver enzymes along with ruling out any obvious cancerous process. Would likely be ideal to wait 24 to 48 hours or when
deemed appropriate by radiology as he just had a cardiac catheterization with contrast. He will get IV fluids and repeat kidney functions in the morning.
-He is expressing wishes to go home. Ideally would benefit from staying a few additional days for further testing but could undergo CT imaging outpatient as well.
-Determination of timing for valve replacement pending CT surgery
-Infectious disease is also following for bacteremia/antibiotics.
-Trend LFTs. Hepatitis serologies were negative. Pending imaging to add underlying liver workup labs. Possibly elevated secondary bacteremia/infectious process as they were previously normal on admission
-Will follow
Subjective
Subjective
Date of Service: January 22, 2024
The patient was seen and examined at the bedside. He is postcardiac catheterization. The report is not available but the patient reports he was told his coronaries were clean. He would like to go home today. Noted with mildly elevated AST, ALT,
and alk phos which had been previously normal upon admission. He denies any abdominal pain.
Objective
Data Reviewed
Laboratory Data:
Laboratory Results
01/22/24 02:06
01/22/24 02:06
Laboratory Results
PT 14.4 Sec (11.4-14.6) 01/19/24 05:28
INR 1.11 01/19/24 05:28
APTT 53.8 Sec (23.4-35.0) H 01/22/24 08:10
Total Bilirubin < 0.1 mg/dl (0.2-1.3) L 01/22/24 02:06
AST 84 U/L (17-59) H 01/22/24 02:06
ALT 100 U/L (0-50) H 01/22/24 02:06
Alkaline Phosphatase 129 U/L (38-126) H 01/22/24 02:06
Vital Signs and I&O:
Vital Signs
Temp Pulse Resp BP Pulse Ox
98.0 F 80 17 114/70 98
01/22/24 11:00 01/22/24 11:00 01/22/24 11:00 01/22/24 11:00 01/22/24 11:00
I&O
01/21/24 01/22/24 01/23/24
06:59 06:59 06:59
Intake Total 720 / 720 1200 / 1200
Balance 720 / 720 1200 / 1200
Physical Exam
Physical Exam
HEENT: Anicteric
GI: Soft, Non Distended, Non Tender and Normal Bowel Sounds
Neuro: Non Focal
--- NOTE | 2024-01-22 11:39 | W.PN.CT ---
Today's Communication / Plan
-
S/p LHC (report pending)
Patient is expressing his need to be discharged home and he stated that he does not want heart surgery on this admission. He was set up for a outpatient follow up appointment with Dr. Rashid on 01/29/24 @ 1200pm.
He expressed understanding.
Assessment / Plan
-
#Severe MR and Moderate AR 2/2 endocarditis
- Patient for [facility] today
- Surgery date TBD; continue multidisciplinary discussions. Outpatient visit with Dr. Rashid Scheduled
- Continue IV ABX
#DVT
- One stable s/p C, can convert to oral AC
Discussed patient care with: Care Team
Subjective
-
Date of Service: January 22, 2024
Objective Data
-
Lab Results
01/22/24 02:06
01/22/24 02:06
PT 14.4 Sec (11.4-14.6) 01/19/24 05:28
INR 1.11 01/19/24 05:28
APTT 53.8 Sec (23.4-35.0) H 01/22/24 08:10
Vital Signs
Vital Signs
Temp Pulse Resp BP Pulse Ox
98.0 F 80 17 114/70 98
01/22/24 11:00 01/22/24 11:00 01/22/24 11:00 01/22/24 11:00 01/22/24 11:[address]
CT Intake/Output/Weight
01/21/24 01/22/24 01/22/24
18:59 06:59 18:59
Intake Total 720 / 1200 480 / 1200
Balance 720 / 1200 480 / 1200
SaO2: 98
Data Reviewed
-
Lab Results: Results Reviewed
Medications: Active Meds Reviewed
--- NOTE | 2024-01-22 11:51 | CM ---
Addendum entered by Radha Almanza 01/22/24 14:13:
PICC info and chest xray sent to Richa at [facility] via Fax - [phone]
Original Note:
CM - notified by Dr Andrade pt requesting to go Home today. Pt will get PICC today
Called Richa at [facility] [phone] - informed pt for d/c today
Per Richa pt would have a co-pay of $30/dose until he meets out of pocket deductible of $7900
Will notify pt of cost. Will notify Richa of pt d/c
Plan - home with [facility]
Fax - [phone]
--- NOTE | 2024-01-22 13:29 | W.PN.HOSP.TC ---
Today's Communication/Plan
-
picc line placement
discharge home if home infusion arranged
Assessment / Plan
Assessment / Plan
STEPHANIE
Normal left ventricular size, thickness, and systolic function. Left ventricular ejection fraction is 55-60%. Biatrial lodgment.
No thrombus detected in the left atrial appendage.�Mildly thickened mitral valve leaflets.� Torn chordae with partial flail posterior mitral valve leaflet.� Evidence of mobile echodensity consistent with vegetation posterior mitral valve leaflet.�
Severe mitral regurgitation.�
Evidence of flow reversal in the right and left upper pulmonary veins. Trileaflet aortic valve with suspicious echodensity for vegetation on the tips of the right and noncoronary cusps. There is moderate aortic regurgitation. Mild tricuspid
regurgitation.
Left heart cath
1: Elevated filling pressures with mild pulmonary hypertension
2: Moderate aortic insufficiency
3. Normal coronary arteries

#Strep bovis bacteremia
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
# Mitral regurgitation with chordae tendon rupture
Appreciate ID, cardiology, CT surgery input
STEPHANIE report as above
Continue IV Rocephin, repeat blood cultures NTD
GI evaluated and patient prefers to go home today, will plan EGD/colonoscopy in 3-[address] surgery will also order routine CT chest and abdomen pelvis.
Discussed with CT surgery/cardiology. Patient will have outpatient follow-up with CT surgery next week with further discussion for valvular procedure. Per interventional cardiology no indication of need of emergent surgery
Patient will get a PICC line in place, case management working on infusion set up
#Migrating polyarthritis
CRP elevated at 199, possibly from septic emboli from bacterial endocarditis
Status post right wrist steroid injection on 01/15
CHARISSA neg. RF level pending
Follow-up with rheumatology outpatient
#Acute left lower extremity DVT
Deep venous thrombosis in a left posterior tibial vein
Risk factors include smoking and possible malignany (high PSA being worked up outpt)
Resume back on home Eliquis
#Elevated PSA
Has outpatient MRI scheduled on 01/22/2024
Has outpatient follow-up with Dr. Laurent
#Acute on chronic hyponatremia
Suspect due to excess ADH release from pain
TSH and cortisol normal
Sodium 137 today
S/p fluid restriction, monitor sodium
#Constipation
Resolved, continue bowel regimen
#History of asthma
Nebs from home continued
DVT prophylaxis�IV heparin drip
Full code
Discussed with ID/GI/CTS/cardiology
Anticipated Discharge: Today
Subjective/Interval History
-
Date of Service: January 22, 2024
Patient seen post left heart catheterization
Not voicing any complaint
Objective Data
-
Labs:
Laboratory Results
01/22/24 01/22/24 01/22/24
02:06 08:10 17:00
WBC 8.3
Hgb 11.4 L
Hct 34.2 L
Plt Count 350
APTT 49.1 H 53.8 H Pending
Sodium 139
Potassium 4.2
Chloride 103
Carbon Dioxide 30
BUN 19
Creatinine 0.7
Glucose 166 H
Calcium 8.4
Total Bilirubin < 0.1 L
AST 84 H
ALT 100 H
Alkaline Phosphatase 129 H
Vital Signs:
Vital Signs
Temp Pulse Resp BP Pulse Ox
98.1 F 80 16 118/77 98
01/22/24 12:12 01/22/24 12:12 01/22/24 12:12 01/22/24 12:12 01/22/24 12:12
I&O
01/21/24 01/22/24 01/23/24
06:59 06:59 06:59
Intake Total 720 / 720 1200 / 1200
Balance 720 / 720 1200 / 1200
Review of Systems
-
Respiratory: Reports No Symptoms
Cardiac: Reports No Symptoms
Abdomen/GI: Reports No Symptoms
Physical Exam
-
General: Negative Comfortable
HEENT: Oxygen
Respiratory: Clear to Auscultation
Cardiac: Regular Rhythm and S1/S2; Negative Murmur or Rub
Musculoskeletal: Other (Right wrist arterial access site)
Neuro: Awake, Alert, Oriented, No Motor Deficits and Nonfocal/Grossly Intact
Psych: Calm
[2024-01-22] MEDS: STERILE WATER FOR INJECTION 20 ML IV (15:44)
[2024-01-22] MEDS: ROCEPHIN 2000 MG IV (15:44)
--- NOTE | 2024-01-23 08:00 | W.DCSUMMARY ---
Discharge Summary
Discharge Data
Date of Admission: 01/17/24
Date of Discharge: 01/22/24
-
Pending Results: No
Hospital Course
Discharging Physician : Dr Reji Andrade
Disposition : Home
Primary care physician : Dr Bryson Horn
Principal Discharge diagnosis :
Streptococcus bovis bacteremia and endocarditis
Severe mitral regurgitation with chordae tendon rupture
Left posterior vein thrombosis
Acute on chronic hyponatremia
Chronic Discharge diagnosis :
Elevated prostate-specific antigen
Constipation
history of asthma
Hospital Course :
Patient is a 58-year-old male with mentioned past medical history came to ER for having new onset of diffuse joint ache. Patient also had some new left lower lobe swelling and erythema and was felt to having cellulitis. Lower extremity venous
Doppler showed deep venous thrombosis involving left posterior tibial vein. Patient was started on Eliquis. As part of cellulitis workup patient had 2 sets of blood cultures collected which grew gram-positive cocci in chains. Infectious disease
were involved in care and patient was started on appropriate antibiotic coverage. Organism later identified as Streptococcus bovis. Trans thoracic echocardiogram was done which showed severe mitral valve regurgitation with possible tendineae
rupture moderate aortic regurgitation. Cardiology and cardiothoracic surgery were involved in care. Patient had a follow-up transesophageal echocardiogram which showed similar finding of 2 or chordae with flail posterior mitral valve leaflet,
evidence of mobile echodensity in posterior mitral leaflet, severe mitral regurgitation and echodensity involving aortic valve. There was concern that patient may require valvular surgery with proven strep bovis endocarditis. Patient had a left
heart catheterization done as part of preoperative testing. This showed a moderate acute insufficiency and normal coronary arteries, cardiology felt there was no clear urgent indication for valve surgery. After discussion with family patient was
planned to follow-up on outpatient basis with expiratory surgery if any signs of worsening. Patient had PICC line placed and was discharged on IV Rocephin course.
As part of workup of strep bovis bacteremia patient also was evaluated by gastroenterology who will follow-up in office in 3 to 4 weeks to do an elective endoscopy and colonoscopy. Patient will also require a CT abdomen pelvis which cardiothoracic
surgery is planning to do with CT chest required for valve repair evaluation.
Important imaging findings :
None
Procedure findings :
None
Discharge Plan
-
Patient Disposition: Home with Home Care
Discharge Diagnosis/Procedures: Streptococcus bovis bacteremia and endocarditis, Mitral valve regurgitation, Deep venous thrombosis
Condition: Fair
Diet: Regular
Activity: As tolerated
Driving Restrictions: No driving
Bathing Restrictions: OK to Shower
Other Services: VN
Activity Restrictions/Additional Instructions:
Streptococcal bovis bacteremia/endocarditis is associated with colon cancer.
You will need outpatient colonoscopy if you have not had one.
Stand Alone Forms: DC Instructions- Cath/EP Lab
Referrals:
Bryson Horn DO [Family Provider] - in one week
Charlee Diaz CRNP [Specified Professional Personl] - 02/12/24 9:20 am (Cardiology followup appointment)
Myriam Loera MD [Active] - in four to six weeks
Chandu Rashid MD [Active] - 01/29/24 12:00 pm
Prescriptions:
New
ceftriaxone 2 gram Recon Soln
2,000 mg IV Q24H 45 Days Qty: 45 0RF
Rx Instructions:
FOR DOCUMENTATION ONLY
acetaminophen [Tylenol Extra Strength] 500 mg Tablet
1,000 mg PO TID Qty: 30 0RF
Eliquis 5 mg tablet
See Rx Instructions .ROUTE .COMPLEX Qty: 74 0RF
Rx Instructions:
Take 2 Tablets Twice Daily for 7 Days Then
Take 1 Tablet Twice Daily for Maintenance
Continued
albuterol sulfate 90 mcg/actuation Hfa Aerosol Inhaler
2 puff INHALATION R Q4HPRN PRN (Reason: sob)
Fruit and Vegetable Daily 5-6-150 mg Capsule
6 cap PO DAILY
Anoro Ellipta 62.5-25 mcg/actuation Blister With Device
1 inh INHALATION R DAILY
cyclobenzaprine 10 mg Tablet
10 mg PO ONCE PRN (Reason: muscle relaxer)
Discontinued
tramadol 50 mg Tablet
50 mg PO Q6H PRN (Reason: severe pain)
Patient Comments:
01/17/2024, pt. filled this med. on 01/04/2024 for 40 tablets according to PDMP.
ibuprofen [Advil] 200 mg Tablet
400 mg PO DAILYPRN PRN (Reason: mild pain)
gabapentin
1 cap PO BIDPRN PRN (Reason: mild pain)
Patient Comments:
01/17/2024, pt. used an older prescription of his from 2016 per pt.; was not able to find in pharmacy fill data or [facility] records. Pt. has used this med. for the past three days per pt.; pt. unsure of strength.
Discharge Orders:
Discharge Patient (As Directed); Ordered 01/22/24
Ordered By: Reji Andrade
Discharge Date and Time
Discharge Date/Time: 01/22/24 17:21
== END 2024-01-22 17:21 | disposition home health service (06) | DRG 286 ==
LOC: 3 WEST ACU 15:59
PROVIDERS: Clinical Nurse Specialist Acute Care; General Practice; Nurse Practitioner Family; Nurse Practitioner Gerontology; Registered Nurse; ADMITTING PHYSICIAN Family Medicine; ATTENDING PHYSICIAN Hospitalist; CONSULT PHYSICIAN Internal Medicine; CONSULT PHYSICIAN Internal Medicine Cardiovascular Disease; EMERGENCY PHYSICIAN Emergency Medicine; FAMILY PHYSICIAN Internal Medicine; OTHER PHYSICIAN Student in an Organized Health Care Education/Training Program
PROC: 02HV33Z Insertion of Infusion Device into Superior Vena Cava, Percutaneous Approach (ICD-10-PCS; 2024-01-22)
PROC: 4A023N7 Measurement of Cardiac Sampling and Pressure, Left Heart, Percutaneous Approach (ICD-10-PCS; 2024-01-22)
PROC: B2151ZZ Fluoroscopy of Left Heart using Low Osmolar Contrast (ICD-10-PCS; 2024-01-22)
PROC: B2111ZZ Fluoroscopy of Multiple Coronary Arteries using Low Osmolar Contrast (ICD-10-PCS; 2024-01-22)
DX: I82.402 Acute embolism and thrombosis of unspecified deep veins of left lower extremity (principal); I33.0 Acute and subacute infective endocarditis; E87.1 Hypo-osmolality and hyponatremia; L03.116 Cellulitis of left lower limb; R78.81 Bacteremia; I82.442 Acute embolism and thrombosis of left tibial vein; Z79.01 Long term (current) use of anticoagulants; F17.210 Nicotine dependence, cigarettes, uncomplicated; B95.4 Other streptococcus as the cause of diseases classified elsewhere; B96.89 Other specified bacterial agents as the cause of diseases classified elsewhere; I08.0 Rheumatic disorders of both mitral and aortic valves; I27.20 Pulmonary hypertension, unspecified; K59.00 Constipation, unspecified
CPT/HCPCS: 70355; 71045; 71046; 80048; 80053; 81003; 81015; 82248; 82533; 83036; 83930; 83935; 84145; 84300; 84443; 85025; 85027; 85610; 85652; 85730; 86038; 86140; 86430; 86431; 86704; 86706; 86708; 86709; 86803; 87040; 87149; 87186; 87205; 87340; 93005; 93306; 93312; 93320; 93325; 93456; 93567; 93880; 93971; 94010; 94640; 97162; 99285; 99406; C1894; Q9967

== ENCOUNTER → 2024-01-24 07:39 | Outpatient (REF) | payer OTHER, SELFPAY | LOC: MRI 07:39 | PROVIDERS: ATTENDING PHYSICIAN Specialist; FAMILY PHYSICIAN Internal Medicine | DX: R97.20 Elevated prostate specific antigen [PSA] (principal) | CPT/HCPCS: 72197; A9575 ==

== ENCOUNTER 2024-02-15 06:18 | Day surgery (SDC) | payer OTHER, SELFPAY ==
[2024-02-15 10:48] VITALS: BP 120/87
[2024-02-15 11:04] VITALS: BMI 23.1
[2024-02-15 12:38] VITALS: BP 122/63
[2024-02-15 12:45] VITALS: BP 110/82
[2024-02-15 13:00] VITALS: BP 100/86
== END 2024-02-15 13:05 | disposition home or self-care (01) ==
LOC: SDS 06:18
PROVIDERS: ATTENDING PHYSICIAN Internal Medicine
DX: Z12.11 Encounter for screening for malignant neoplasm of colon (principal); K57.30 Diverticulosis of large intestine without perforation or abscess without bleeding; K64.8 Other hemorrhoids; K44.9 Diaphragmatic hernia without obstruction or gangrene; K31.89 Other diseases of stomach and duodenum; Z86.010 Personal history of colon polyps
CPT/HCPCS: 43239; G0121; 88305; 88342

== ENCOUNTER 2024-02-18 08:03 | Inpatient (IN) | payer OTHER, SELFPAY ==
[2024-02-18 08:45] VITALS: BP 119/75
[2024-02-18 08:49] VITALS: BMI 23.5
--- NOTE | 2024-02-18 09:54 | CM ---
Reviewed chart. Met with and Mrs. Aggarwal to review discharge plans. He states prior to admission he resides with his spouse in a two story home with three steps to enter. He states he has a full flight of steps to get to bedroom/full
bathroom. He states he has a powder room on the first floor. He states prior to admission he was independent with ambulation and adls. He states he has crutches at home. He states he is current with [facility] for I.V. ABX. Telephone call to
[facility] Liaison to update her. Medical work-up in progress. The discharge plan is to return home with his spouse when medically stable.
[2024-02-18 10:11] LABS: Hematocrit 38.2 % (39.0-52.0); Hemoglobin 12.6 g/dL (13.0-18.0); Mean Corpuscular Hgb 28.6 pg (27.0-31.0); Mean Corpuscular Volume 86.6 fL (80.0-94.0); Mean Platelet Volume 9.9 fL (7.4-10.4); Platelet Count 213 10^3/uL (130-400); Red Blood Cell Count 4.41 10^6/uL (4.70-6.10); Red Cell Dist. Width 15.6 % (11.5-14.5); White Blood Cell Count 6.7 10^3/uL (4.8-10.8)
[2024-02-18 10:23] LABS: ALT (SGPT) 26 U/L (0-50); AST (SGOT) 23 U/L (17-59); Albumin 4.1 g/dl (3.5-5.0); Alkaline Phosphatase 78 U/L (38-126); Blood Urea Nitrogen 16 mg/dl (9-20); Calcium 9.5 mg/dl (8.4-10.2); Carbon Dioxide 28 mmol/L (22-30); Chloride 103 mmol/L (98-107); Estimated Creatinine Clearance > 125 ml/min; Glucose 97 mg/dl (70-99); Sodium 139 mmol/L (135-145); Total Bilirubin 0.3 mg/dl (0.2-1.3); Total Protein 7.1 g/dl (6.3-8.2); eGFR > 60.00
[2024-02-18 10:26] LABS: APTT 29.7 Sec (23.4-35.0); INR 1.02; PT 13.2 Sec (11.4-14.6)
--- NOTE | 2024-02-18 11:29 | HPS.HSE ---
Family Physician
-
Family Physician: Bryson Horn
Chief Complaint
-
Admitted 02/18/24 for Eliquis to IV Heparin bridge therapy due to recent LLE DVT in preparation for AVR/MVR with Dr Chandu Rashid on 02/20/24.
History of Present Illness
González Aggarwal is a 58-year-old male recently admitted to [facility] on 01/13/2024 with left lower extremity edema rash and joint pain. Patient was started on Eliquis for LLE DVT. During this hospitalization, patient was found
to have Strep bovis [place] aortic and mitral valve endocarditis and was started on IV ceftriaxone by Infectious disease team. He was seen by Dr. Chandu Rashid in consultation and electively admitted 02/18/2024 for IV heparin bridge therapy prior to
surgery on 02/19. Please see office H&P from 01/29/24for further details.
Medical History
Past Medical History
Past Medical History: Reports Other
Additional Past Medical History:
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
Severe mitral regurgitation (12/2023)
Moderate aortic insufficiency(12/2023)
Left lower extremity deep vein thrombosis (12/2023)
Asthma
Current tobacco abuse
Past Surgical History: Reports Other
Additional Past Surgical History:
Right total hip replacement
Bilateral shoulder replacement
Social History
Tobacco: Former Smoker (quit 12/2023)
Alcohol: None (quit 2003)
Drug: None
Personal:
Living: With Family
Employment: Employed ([employer])
Family History
Family History: Other (father 80y.o -AAA, lung C/A)
Allergies / Home Medications
Allergies reflects when Allergies were last updated in [employer].
Home Medications with original date entered in [employer]
Allergy/Medication List:
Allergies
Allergy/AdvReac Type Severity Reaction Status Date / Time
No Known Allergies Allergy Verified 02/15/24 10:29
Home Medications
�Medication �Instructions �Recorded
albuterol sulfate 90 mcg/actuation 2 puff inhalation R Q4HPRN PRN sob 01/17/24
aerosol inhaler
iesqbajw-mgqcqd-bhpnm extract 5 6 cap PO DAILY Supplement 01/17/24
mg-6 mg-150 mg capsule (Fruit and
Vegetable Daily)
umeclidinium 62.5 mcg-vilanterol 1 inh inhalation R DAILY 01/17/24
25 mcg/actuation powdr for Lung/Breathing Issues
inhalation (Anoro Ellipta)
apixaban 5 mg tablet (Eliquis) See Rx Instructions .Route 01/22/24
.COMPLEX #74 tabs
ceftriaxone 2 gram solution for 2,000 mg IV Q24H 45 days #45 ea 01/22/24
injection
Lovenox 1 dose SC .PERPROTOCOL 02/15/24
peg 3350-electrolytes 236 240 ml PO Q10M 02/15/24
gram-22.74 gram-6.74 gram-5.86
gram solution (Golytely)
Review of Systems
-
History Source: Patient
A 12 point ROS was completed and negative except as noted: Yes
Constitutional: Reports No Symptoms
EENT: Reports No Symptoms
Respiratory: Reports No Symptoms
Cardiac: Reports No Symptoms
Abdomen/GI: Reports No Symptoms
: Reports No Symptoms
Musculoskeletal: Reports Edema (LLE)
Skin: Reports No Symptoms
Neurological: Reports Numbness (B/L finger tips)
Endocrine: Reports No Symptoms
Hematologic/Lymphatic: Reports No Symptoms
Psych: Reports No Symptoms
Physical Exam
Vital Signs
Vital Signs
Temp Pulse Resp BP Pulse Ox
97.5 F 76 18 119/75 100
02/18/24 08:49 02/18/24 10:15 02/18/24 08:49 02/18/24 08:45 04/01/24 08:49
Physical Exam
General: Well Developed, Well Nourished, Comfortable and Good Appetite
HEENT: NormoCephalic, Anicteric, Moist mucous membranes, Good Dentition, PERRLA and No Ptosis
Respiratory: Clear
Cardiac: S1/S2, Regular Rhythm and Murmur (II/ blowing diastolic murmur LSB 3rd ICS and II/ HSM LSB 5th ICS)
GI: Soft, Non Tender, Non Distended, Normal Bowel Sounds and No Hepatosplenomegaly
Rectal: Deferred by Provider
Genito-urinary: Deferred by me
Musculoskeletal: Edema, Left Lower Extremity (tr tibial)
Skin: Warm, Dry and Other (RUE PICC intact w/o erythema)
Neuro: AO x 3
Hematologic/Lymphatic: No Lymphadenopathy
Psych: Calm
Laboratory Results
-
02/18/24 09:57
02/18/24 09:57
Laboratory Results
PT 13.2 Sec (11.4-14.6) 02/18/24 09:57
INR 1.02 02/18/24 09:57
APTT 29.7 Sec (23.4-35.0) 02/18/24 09:57
Total Bilirubin 0.3 mg/dl (0.2-1.3) 02/18/24 09:57
AST 23 U/L (17-59) 02/18/24 09:57
ALT 26 U/L (0-50) 02/18/24 09:57
Alkaline Phosphatase 78 U/L (38-126) 02/18/24 09:57
Data Reviewed
-
Diagnostic Radiology: Report Reviewed by me and Discussed with Physician
CT Scan: Report Reviewed by me and Discussed with Physician
Ultrasound: Report Reviewed by me and Discussed with Physician
Medical Tests (Nuc Med, Echo, EKG etc): Report Reviewed by me and Discussed with Physician
Lab Data: Labs Reviewed by me and Discussed with Physician
Impression/Plan
-
IMPRESSION: Strep bovis Aortic and mitral valve endocarditis with LLE DVT
PLAN:
- cath 01/21: nl coronaries
- CUS 01/20: <50% B/L ICA stenosis
- STEPHANIE 01/20: EF 55-60% with severe MR (torn chordae w/partial flail PMVL) and moderate AI (vegetation on tips of RCC and NCC)
- last dose Eliquis was 02/16
- start IV Heparin
- for CTA C/A/P today
- consult ID to follow for continued Ceftriaxone therapy (last dose 2G IV @ 1800 on 02/16)
- check T&S 02/18
- need anesthesia consult
- pre-op dental clearance on chart
- for AVR/MVR 02/19
[2024-02-18] MEDS: HEPARIN 4000 UNITS IV (11:53)
[2024-02-18] MEDS: HEPARIN 25000 UNITS/250 ML IV (12:00)
--- NOTE | 2024-02-18 12:06 | CON.ID ---
Consultation
-
Date/Time Consultation Requested: February 18, 2024 0857
Date/Time Consultation Performed: February 18, 2024 1200
Requesting Provider: JOSE Dimas
Performing Provider: Dr. Deana Prasad
Reason for Consultation: On ceftriaxone for endocarditis
Chief Complaint / Past History
Chief Complaint
Here for valve surgery
History of Present Illness
58-year-old male with history of asthma, recent hospitalization from December to January 22, 2024 with left lower extremity DVT and found to have Streptococcus bovis bacteremia, aortic valve and mitral valve endocarditis with ruptured mitral valve
chordae, moderate aortic regurgitation and severe mitral regurgitation. Patient refused to stay in the hospital at the time and therefore he was discharged on ceftriaxone x 6 weeks under the care of infectious disease Dr. Escobar. Outpatient
February 14, colonoscopy showed diverticulosis, otherwise normal. Upper endoscopy with gastritis. He is electively admitted today for valvular surgery 02/19. Overall feels well. He is tolerating ceftriaxone.
Past History
Additional Past Medical History:
S. bovis AV/MV IE
Asthma
BPH
LLE DVT
Right hip replacement
Bilateral shoulder arthroscopic surgeries
Allergy History:
No Known Allergies Allergy (Verified 02/15/24 10:29)
Medications Reviewed: Yes
Current Antibiotics:
Ceftriaxone
Social History
Tobacco: Former Smoker (Quit 12/2023)
Alcohol: None
Drug: None
Personal:
Family History
Family History: Not Pertinent
Review of Systems
Review of Systems
General: Negative Fever, Chills or Change in Appetite
HEENT: Negative Lymphadenopathy or Sinus Problems
Cardiovascular: Negative Chest Pain
Respiratory: Negative Dyspnea or Cough
Gasteroenterology: Other (no diarrhea); Negative Nausea or Vomiting
Genital / Urological: Negative Dysuria or Flank Pain
Endocrine: Negative Weakness
Skin / Hair / Nails: Negative Rash
Neurological: Negative Headache or Dizziness
All systems: All other systems were reviewed and were negative
Vital Signs
Temp Pulse Resp BP Pulse Ox
97.5 F 76 18 119/75 100
02/18/24 08:49 02/18/24 10:15 02/18/24 08:49 02/18/24 08:45 02/18/24 08:49
Physical Exam
Physical Exam
Constitutional: No Acute Distress and Comfortable
Eyes: No Conjunctival Hemorrhage and Sclera Anicteric
Cardiovascular: Regular Rate, S1/S2 and Murmur (RUSB and axilla)
Pulmonary: Clear
Gastrointestinal: Soft, Non Tender, Non Distended and Normal Bowel Sounds
Genito-Urinary: Negative CVA Tenderness
Extremities: Edema (LLE 1+); Negative Splinter Hemorrhage or [place]ay Lesions
Neurological: AO x 3
Lines: PICC (RUE no erythema)
Lab / Diagnostic Study Results
02/18/24 09:57
02/18/24 09:57
PT 13.2 Sec (11.4-14.6) 02/18/24 09:57
INR 1.02 02/18/24 09:57
Microbiology Results
02/18/24 Chest/Abd/Pelvis CTA: Calcific atherosclerotic changes of the thoracic aorta (predominantly involving the aortic arch) and the abdominal aorta without aneurysmal dilatation or findings to suggest dissection. Some suspected changes of
centrilobular emphysema. Large volume widespread colonic stool. Three small scattered low-attenuation hepatic lesions only the largest of which in the left lobe can be confirmed as a cyst. Mildly enlarged prostate.
Assessment / Plan
# Strep bovis [place] AV and MV infective endocarditis
# For elective valve surgeries 02/20/24
- Outpt colonoscopy without mass
- Please send OR valve tissues for culture
- Continue ceftriaxone
[2024-02-18 12:41] VITALS: BP 134/67
[2024-02-18] MEDS: ROCEPHIN 2000 MG IV (16:54)
[2024-02-18] MEDS: STERILE WATER FOR INJECTION 20 ML IV (16:55)
[2024-02-18 17:09] VITALS: BP 128/64
[2024-02-18 18:44] VITALS: BP 125/68
[2024-02-18 20:12] LABS: APTT 48.3 Sec (23.4-35.0)
[2024-02-18] MEDS: HEPARIN 5900 UNITS IV (21:01)
[2024-02-18 22:55] VITALS: BP 112/70
--- NOTE | 2024-02-19 00:29 | PTCARENOTE ---
OOB in room earlier in the shift. Denied any complaints of pain or discomfort. Heparin infusing at 1600 units/hr. Using his own CPAP. Sleeping at present.
[2024-02-19 02:31] VITALS: BP 109/71
[2024-02-19 02:35] VITALS: BMI 23.5
[2024-02-19] MEDS: HEPARIN 25000 UNITS/250 ML IV ×2 (04:34→21:59)
[2024-02-19 04:41] LABS: APTT 90.1 Sec (23.4-35.0)
[2024-02-19 05:02] VITALS: BMI 23.5
--- NOTE | 2024-02-19 05:11 | W.PN.CT ---
Today's Communication / Plan
-
Plan:
-No major issues overnight
-Eliquis washout, cont. heparin gtt. Will d/c nurses' association executive director to OR
-Ongoing preop evaluation
-For AVR/MVR by Dr. Rashid Tomorrow 02/20/24
Assessment / Plan
-
Assessment:
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
-Aortic valve endocarditis (Strep bovis)/Moderate AI
-Mild TR
-LVEF 55-60%
-LLE DVT (on Eliquis)
-Asthma/emphysema
-Active tobacco abuse (since age 16, ~ 10 cigs/day, heaviest 1ppd)
-Right wrist joint pain S/P steroid injection
-BPH
-Recent hyponatremia
-Recent elevated liver enzymes
-S/p R THR
Discussed patient care with: Cardiology, Nursing, Pharmacy and Care Team
Subjective
-
Date of Service: February 19, 2024
No issues overnight. Denies CP/SOB
Objective Data
-
Lab Results
02/18/24 09:57
02/18/24 09:57
PT 13.2 Sec (11.4-14.6) 02/18/24 09:57
INR 1.02 02/18/24 09:57
APTT 90.1 Sec (23.4-35.0) H 02/19/24 03:22
Vital Signs
Vital Signs
Temp Pulse Resp BP Pulse Ox
98.7 F 68 18 109/71 98
02/19/24 03:49 02/19/24 03:00 02/19/24 03:49 02/19/24 02:31 02/19/24 03:49
CT Intake/Output/Weight
02/18/24 02/18/24 02/19/24
06:59 18:59 06:59
Intake Total 130 / 130
Balance 130 / 130
SaO2: 98 (RA)
Physical Exam
-
General: Awake and AOx3
Cardiovascular: Regular rate & rhythm and Murmur (3/6 systolic)
Respiratory: Clear
Extremities: Other (+trace edema)
Data Reviewed
-
Lab Results: Results Reviewed
Medications: Active Meds Reviewed
Chest X-Ray: Report Reviewed and Image Reviewed
ECG: Report Reviewed and Image Reviewed
[2024-02-19 08:19] VITALS: BP 115/95
--- NOTE | 2024-02-19 11:06 | CM ---
Addendum entered by Zara Bryson 02/19/24 14:09:
Met with Mr. Aggarwal and his spouse regarding pre-op and post-op routines.
Original Note:
Reviewed chart. Met with Mr. Aggarwal to review discharge plans. Prior to admission he resides with his spouse in a two story home with three steps to enter. He has to go up a full flight of steps to get to bedroom/full bathroom. He has a powder
room on the first floor. Prior to admission he was independent with ambulation and adls. He has crutches at home. He is current with [facility] for IV ABX. Spole with [facility] Liaison to update them. Medical work-up in progress. The discharge
plan is to return home with his spouse and a home visit by the Cardiothoracic Transitional Care Nurse when medically stable.
We reviewed pre-op and post-op routines. We briefly reviewed the shower instructions. We also reviewed restrictions including sternal precautions and driving precautions. Also discussed a home visit by the Cardiothoracic Transitional Care Nurse.
He is agreeable to a home visit. The plan is for AVR/MVR on Sunday02/20/24.
[2024-02-19 11:23] VITALS: BP 114/60
--- NOTE | 2024-02-19 11:25 | W.PN.ID1 ---
Date of Service
Date of Service: February 19, 2024
Today's Communication
continue ceftriaxone
agree with cefazolin perioperatively
Assessment / Plan
# Strep bovis [place] AV and MV infective endocarditis
# For elective valve surgeries 02/20/24
- Outpt colonoscopy without mass
- CT reviewed and no lesions
- Please send OR valve tissues for culture
- Continue ceftriaxone plan is through 02/27
- has PICC line; do not recommend changing it at this time - discussed at length with patient including red flags
- follow clinically, currently has follow up scheduled with me 02/25
Chief Complaint
-: Other (endocarditis)
Subjective / Review of Systems
afebrile
bp stable
PICC no evidence of infection
no complaints
Vital Signs / Physical Exam
Vital Signs
Vital Signs
Temp Pulse Resp BP Pulse Ox
98.4 F 66 16 109/71 97
02/19/24 11:22 02/19/24 11:22 02/19/24 11:22 02/19/24 02:31 02/19/24 11:22
Physical Exam
Constitutional: No Acute Distress and Chronically Ill
Cardiovascular: Regular Rate and S1/S2; Negative Murmur or Rub
Pulmonary: Clear and Symmetric; Negative Wheezes or Rales
Gastrointestinal: Soft, Non Tender, Non Distended and Normal Bowel Sounds
Skin: Warm and Dry; Negative Rash or Jaundice
Lines: PICC (no erythema/warmth/tendernes/drainage)
Objective Data
Lab Data
Lab Results
02/18/24 09:57
02/18/24 09:57
PT 13.2 Sec (11.4-14.6) 02/18/24 09:57
INR 1.02 02/18/24 09:57
APTT 90.1 Sec (23.4-35.0) H 02/19/24 03:22
Estimated Creat Clear > 125 ml/min 02/18/24 09:57
Total Bilirubin 0.3 mg/dl (0.2-1.3) 02/18/24 09:57
AST 23 U/L (17-59) 02/18/24 09:57
ALT 26 U/L (0-50) 02/18/24 09:57
Alkaline Phosphatase 78 U/L (38-126) 02/18/24 09:57
Most recent labs reviewed.
02/18/24 Chest/Abd/Pelvis CTA: Calcific atherosclerotic changes of the thoracic aorta (predominantly involving the aortic arch) and the abdominal aorta without aneurysmal dilatation or findings to suggest dissection. Some suspected changes of
centrilobular emphysema. Large volume widespread colonic stool. Three small scattered low-attenuation hepatic lesions only the largest of which in the left lobe can be confirmed as a cyst. Mildly enlarged prostate.
[2024-02-19 11:38] LABS: APTT 72.1 Sec (23.4-35.0)
[2024-02-19] MEDS: HEPARIN 2900 UNITS IV (12:51)
--- NOTE | 2024-02-19 14:49 | W.CVOR.SURPR ---
CVOR Surgeon Immed Pre Op
-
I have examined this patient prior to performance of the scheduled procedure.
The patient's condition is unchanged from the time of the dictated/written History and
Physical and the patient is able to undergo the scheduled procedure.
Patient seen at bedside this afternoon along with his . We once again reviewed his pathology, the proposed operative interventions (AVR/MVRp or MVR/ELAA), the associated bernardo-operative risks, the expected in-hospital postoperative course, and
the expected outpatient recovery. All questions were answered to the best of my abilities. Pt. agreeable to proceed, requests tissues valve replacements.
Will proceed to OR tomorrow 02/20/2024
Please call with any questions or concerns,
Chandu Rashid M.D.
[phone]
[2024-02-19] MEDS: ROCEPHIN 2000 MG IV (14:55)
[2024-02-19] MEDS: STERILE WATER FOR INJECTION 20 ML IV (14:55)
[2024-02-19 16:05] VITALS: BP 118/71
[2024-02-19 18:40] VITALS: BP 134/73
[2024-02-19 20:03] LABS: APTT 94.2 Sec (23.4-35.0)
[2024-02-19 23:06] VITALS: BP 110/57
--- NOTE | 2024-02-19 23:37 | PTCARENOTE ---
Clip prep done for surgery. Showered with 4% CHG. Pre-op teaching done. Heparin infusing at 18ml/hr via right PICC line. Aware he is NPO after mdn.
[2024-02-20 02:29] LABS: Hematocrit 35.2 % (39.0-52.0); Hemoglobin 11.3 g/dL (13.0-18.0); Mean Corp Hgb Conc. 32.1 g/dL (33.0-37.0); Mean Corpuscular Hgb 28.4 pg (27.0-31.0); Mean Corpuscular Volume 88.4 fL (80.0-94.0); Mean Platelet Volume 10.2 fL (7.4-10.4); Platelet Count 194 10^3/uL (130-400); Red Blood Cell Count 3.98 10^6/uL (4.70-6.10); Red Cell Dist. Width 15.4 % (11.5-14.5); White Blood Cell Count 6.2 10^3/uL (4.8-10.8)
[2024-02-20 02:36] LABS: APTT 87.7 Sec (23.4-35.0)
[2024-02-20 05:05] VITALS: BP 116/67
[2024-02-20 05:08] VITALS: BMI 23.7
--- NOTE | 2024-02-20 05:42 | PTCARENOTE ---
Showered with 4 % CHG soap. Wiped with 2% CHG cloths after shower. Was only able to take a b/p on the left arm as the right is restricted d/t a PIcc on the right. (Elaina) here.
[2024-02-20] MEDS: MAGNESIUM OXIDE 500 MG PO (05:59)
[2024-02-20 06:00] VITALS: BMI 23.7
[2024-02-20] MEDS: PROTONIX 40 MG PO (06:00)
[2024-02-20] MEDS: LOPRESSOR 25 MG PO (06:00)
[2024-02-20] MEDS: BACTROBAN 2% OINTMENT 1 APPLIC NASAL ×2 (06:01→19:09)
[2024-02-20 07:38] LABS: ACT+ - POC 93 Seconds (82-134)
[2024-02-20 07:45] LABS: B.E. - POC -0.2 mmol/L; Glucose - POC 98 mg/dl (65-99); HCO3 - POC 26 mmol/L (21-29); Hematocrit - POC 35 % PCV (42-52); Hemodilution- POC No; Hemoglobin Calculated - POC 12.1; Ionized Calcium - POC 1.22 mmol/L (1.12-1.27); O2 Saturation %Calculated-POC 99.6 5 (92-96); PCO2 - POC 45 mmHg (35-45); PO2 - POC 195 mmHg (80-100); Sodium - POC 141 mmol/L (135-145); pH - POC 7.36 (7.35-7.45)
[2024-02-20 08:51] LABS: ACT+ - POC 399 Seconds (82-134)
[2024-02-20 08:53] LABS: Urine Albumin Negative (Neg - Trace); Urine Bilirubin Negative (Negative); Urine Character Clear (Clear); Urine Color Yellow; Urine Glucose Negative (Negative); Urine Ketone Negative (Negative); Urine Leukocyte Negative (Negative); Urine Nitrite Negative (Negative); Urine Occult Blood Trace (Negative); Urine Specific Gravity 1.015 (<1.030); Urine Urobilinogen Negative (Neg - 1+)
[2024-02-20 08:58] LABS: ACT+ - POC 413 Seconds (82-134)
[2024-02-20 09:06] LABS: Urine Bacteria Few (Negative); Urine Red Blood Cell 0-2 /HPF (0-2); Urine White Cell 0-2 /HPF (0-5)
[2024-02-20 09:07] LABS: ACT+ - POC 455 Seconds (82-134)
[2024-02-20 09:37] LABS: ACT+ - POC 511 Seconds (82-134)
[2024-02-20 09:52] LABS: B.E. - POC 2.1 mmol/L; Glucose - POC 105 mg/dl (65-99); HCO3 - POC 26 mmol/L (21-29); Hematocrit - POC 33 % PCV (42-52); Hemodilution- POC Yes; Hemoglobin Calculated - POC 11.4; O2 Saturation %Calculated-POC 99.9 5 (92-96); PCO2 - POC 38 mmHg (35-45); PO2 - POC 325 mmHg (80-100); Sodium - POC 140 mmol/L (135-145); pH - POC 7.45 (7.35-7.45)
[2024-02-20 09:54] LABS: ACT+ - POC 539 Seconds (82-134)
[2024-02-20 10:17] LABS: B.E. - POC 1.4 mmol/L; Glucose - POC 139 mg/dl (65-99); HCO3 - POC 25 mmol/L (21-29); Hematocrit - POC 33 % PCV (42-52); Hemodilution- POC Yes; Hemoglobin Calculated - POC 11.3; Ionized Calcium - POC 1.06 mmol/L (1.12-1.27); O2 Saturation %Calculated-POC 99.9 5 (92-96); PCO2 - POC 37 mmHg (35-45); PO2 - POC 305 mmHg (80-100); Potassium - POC 5.4 mmol/L (3.6-5.0); Sodium - POC 138 mmol/L (135-145); pH - POC 7.44 (7.35-7.45)
[2024-02-20 10:20] LABS: ACT+ - POC 512 Seconds (82-134)
[2024-02-20 10:45] LABS: B.E. - POC 1.6 mmol/L; Glucose - POC 146 mg/dl (65-99); HCO3 - POC 25 mmol/L (21-29); Hematocrit - POC 33 % PCV (42-52); Hemodilution- POC Yes; Hemoglobin Calculated - POC 11.4; O2 Saturation %Calculated-POC 99.9 5 (92-96); PCO2 - POC 32 mmHg (35-45); PO2 - POC 302 mmHg (80-100); Potassium - POC 4.2 mmol/L (3.6-5.0); Sodium - POC 140 mmol/L (135-145); pH - POC 7.49 (7.35-7.45)
[2024-02-20 10:45] LABS: ACT+ - POC 542 Seconds (82-134)
--- NOTE | 2024-02-20 10:47 | CM ---
Chart reviewed. Patient is in the OR today. Patient is independent of ADLS, lives with his in a 2 STH, 3 BETY, has crutches at home. Patient was receiving IV antibiotics with [facility] prior to surgery and plan is to continue IV antibiotics
until 02/27. Plan is for the patient to return home with CT Transitional RN and [facility]. CM to follow
[2024-02-20 11:16] LABS: ACT+ - POC 514 Seconds (82-134)
[2024-02-20 11:21] LABS: B.E. - POC -1.7 mmol/L; Glucose - POC 96 mg/dl (65-99); HCO3 - POC 25 mmol/L (21-29); Hematocrit - POC 35 % PCV (42-52); Hemodilution- POC Yes; Hemoglobin Calculated - POC 11.9; Ionized Calcium - POC 1.14 mmol/L (1.12-1.27); O2 Saturation %Calculated-POC 99.9 5 (92-96); PCO2 - POC 52 mmHg (35-45); PO2 - POC 317 mmHg (80-100); Potassium - POC 4.8 mmol/L (3.6-5.0); Sodium - POC 142 mmol/L (135-145)
[2024-02-20 11:32] LABS: ACT+ - POC 621 Seconds (82-134)
[2024-02-20 11:43] LABS: B.E. - POC -1.3 mmol/L; Glucose - POC 93 mg/dl (65-99); HCO3 - POC 26 mmol/L (21-29); Hematocrit - POC 36 % PCV (42-52); Hemodilution- POC Yes; Hemoglobin Calculated - POC 12.2; Ionized Calcium - POC 1.16 mmol/L (1.12-1.27); O2 Saturation %Calculated-POC 99.9 5 (92-96); PCO2 - POC 50 mmHg (35-45); PO2 - POC 318 mmHg (80-100); Potassium - POC 4.8 mmol/L (3.6-5.0); Sodium - POC 143 mmol/L (135-145); pH - POC 7.31 (7.35-7.45)
[2024-02-20 11:45] LABS: ACT+ - POC 529 Seconds (82-134)
[2024-02-20 12:06] LABS: B.E. - POC -1.1 mmol/L; Glucose - POC 115 mg/dl (65-99); HCO3 - POC 24 mmol/L (21-29); Hematocrit - POC 34 % PCV (42-52); Hemodilution- POC Yes; Hemoglobin Calculated - POC 11.5; PCO2 - POC 40 mmHg (35-45); PO2 - POC 410 mmHg (80-100); Potassium - POC 5.3 mmol/L (3.6-5.0); Sodium - POC 142 mmol/L (135-145); pH - POC 7.39 (7.35-7.45)
[2024-02-20 12:08] LABS: ACT+ - POC 565 Seconds (82-134)
[2024-02-20 12:28] LABS: ACT+ - POC 529 Seconds (82-134)
[2024-02-20] MEDS: ANCEF 10 IV ×2 (12:30→14:39)
[2024-02-20 12:47] LABS: ACT+ - POC 98 Seconds (82-134)
[2024-02-20 12:49] LABS: B.E. - POC -2.5 mmol/L; Glucose - POC 128 mg/dl (65-99); HCO3 - POC 24 mmol/L (21-29); Hematocrit - POC 31 % PCV (42-52); Hemodilution- POC Yes; Hemoglobin Calculated - POC 10.5; Ionized Calcium - POC 1.26 mmol/L (1.12-1.27); PCO2 - POC 45 mmHg (35-45); PO2 - POC 527 mmHg (80-100); Potassium - POC 3.8 mmol/L (3.6-5.0); Sodium - POC 144 mmol/L (135-145); pH - POC 7.33 (7.35-7.45)
--- NOTE | 2024-02-20 13:17 | W.IMMPOSTOP ---
Addendum entered and electronically signed by Chandu Rashid MD 02/20/24 14:42:
Dictated: [id number]
Original Note:
Surgical Immed Post Op Note
-
CARDIAC SURGERY OPERATIVE NOTE:
Preoperative Dx:
S. Bovis endocarditis of the aortic and mitral valves
Severe MR
[id number] AI
Postoperative Dx:
Same
Procedures:
1) Median sternotomy
2) Excision of infected AV and MV
3) MVR w/ placement of #33 MITRIS RESILIA
4) AVR w/ placement of #25 INSPIRIS RESILIA
5) ELAA w/ 45mm AtriClip
Surgeon:
Chandu Rashid M.D.
Assistants:
Kaylie Richardson P.A.-C.; stonecutter assistant throughout
Marky Mendoza P.A.-C.; incision closure ([id number])
Anesthesia:
Umesh Subramanian C.R.N.A. and Eliseo Lou M.D.
Perfusion:
Leda Colorado C.C.P.; XC: 159, CPB: 186
Findings:
AV w/ perforated RCC w/ ~1cm defect in middle of cusp; small vegetation on ventricular side of NCC; No gross annular extension
MV w/ ruptured, infected chords at w/ minor vegetation. Infected MV leaflets resected; islands of remaining non-involved chordae preserved & secured to mitral annulus. No gross annular extension of infection.
MVR secured w/ 16 interrupted, pledgetted valve sutures & CorKnots; pledgets on ventricular side of annulus
AVR secured w/ 17 interrupted, pledgetted valve sutures & CorKnots
JYOTI closed at its base (windsock morphology)
Complications:
None
Transfusions:
None
Implants:
[employer]; MITRIS RESILIA, Model [id number], 33mm, SN: [id number]
[employer]; INSPIRIS RESILIA, Modeal [id number], 25mm, SN: [id number]
AtriClip ACHV45, [id number]
Epicardial V-wires x 2
CT x 3
Sternal wires x 9
Condition:
Sinus at 79 (ST -0.7/-0.3); 88/55. 38/24. CVP 23. 98%
GTTS: levophed 6, epi 2, insulin 1, precedex 0.6
Stable/guarded to CVICU
[2024-02-20 13:56] LABS: Glucose - Point of Care 174 mg/dl (70-99)
--- NOTE | 2024-02-20 14:00 | PTCARENOTE ---
received patient from CVOR. Sedated and placed on vent by LINING BASTER. Out with usual lines, CTx3. V wires set to back up rate 60/10/2. mckeon catheter draining clear yellow urin. out on precedex, levo, insulin and epi. will wean all drugs as
tolerated/ordered. labs drawn and sent. ekg and cxr done bedside. will continue to monitor.
[2024-02-20 14:17] LABS: Hematocrit 31.4 % (39.0-52.0); Hemoglobin 10.5 g/dL (13.0-18.0)
[2024-02-20 14:20] LABS: HCO3 25.3 mmol/L (21-28); Ionized Calcium 1.17 mMOL/L (1.15-1.33); O2 Saturation % 99.9 % (94-98); PCO2 48 mmHg (35-48); PO2 200 mmHg (83-108); Potassium 4.3 mMOL/L (3.5-5.1); Sodium 138 mMOL/L (136-145); pH 7.33 (7.35-7.45)
[2024-02-20 14:21] LABS: O2 Therapy vent
[2024-02-20 14:23] LABS: Mixed Venous O2 Saturation 82.1 %
[2024-02-20 14:28] LABS: INR 1.44; PT 17.6 Sec (11.4-14.6)
[2024-02-20 14:30] LABS: APTT 32.7 Sec (23.4-35.0)
[2024-02-20 14:31] LABS: Blood Urea Nitrogen 15 mg/dl (9-20); Estimated Creatinine Clearance 119 ml/min; Glucose 159 mg/dl (70-99); Magnesium 2.8 mg/dl (1.6-2.3)
[2024-02-20] MEDS: VERSED 0.5 MG IV (14:31)
[2024-02-20] MEDS: NEURONTIN PO ×2 (14:35→15:26)
[2024-02-20] MEDS: TYLENOL PO (14:38)
[2024-02-20] MEDS: NSS 500 IV (14:38)
[2024-02-20 14:41] LABS: Platelet Count 155 10^3/uL (130-400)
[2024-02-20] MEDS: PACERONE PO (15:26)
[2024-02-20] MEDS: CALCIUM CHLORIDE 10% SYRINGE 50 ML IV (15:28)
[2024-02-20] MEDS: CALCIUM CHLORIDE 10% SYRINGE 50 MG IV (15:28)
[2024-02-20] MEDS: STERILE WATER FOR INJECTION 20 ML IV (15:30)
[2024-02-20] MEDS: ROCEPHIN 2000 MG IV (15:30)
[2024-02-20 15:41] LABS: Glucose - Point of Care 126 mg/dl (70-99)
[2024-02-20] MEDS: ALBUMIN 5% 250 IV (15:45)
--- NOTE | 2024-02-20 15:55 | CON.INTV ---
Consultation
Consultation Request
Date/Time Consultation Requested: 02/20/2024
Date/Time Consultation Performed: 02/20/2024
Requesting Provider: Dr. Rashid
Performing Provider: Dr. Chu Weinstein
Reason for Consultation: Status post AVR and MVR due to endocarditis.
Medical History
-
History of Present Illness:
58-year-old man who recently was admitted to [facility] in December patient was found during this hospital stay to have strep bovis [place] aortic and mitral valve endocarditis and was treated with antibiotics. He was seen in the outpatient
setting by CT surgery and electively admitted to the hospital to bridge oral anticoagulation to heparin.
Plan was for aortic valve and mitral valve replacement. Surgery underwent on 02/20/2024 without complications.
Patient currently in the intensive care unit intubated on mechanical ventilation.
Unable to provide history.
Records reviewed.
Past Medical History
Past Medical History: Other (See assessment and plan section)
Social History
Tobacco: Former Smoker (Quit December 2023)
Alcohol: None (Quit 2003)
Drug: None
Personal:
Living: With Family
Employment: Employed ([employer])
Family History
Family History: Unable to Obtain
Allergies / Home Medications
Allergies
Allergy/AdvReac Type Severity Reaction Status Date / Time
No Known Allergies Allergy Verified 02/15/24 10:29
Home Medications
�Medication �Instructions �Recorded �Confirmed �Last Taken �Type
umeclidinium 62.5 mcg-vilanterol 1 inh inhalation R DAILY 01/17/24 02/18/24 02/13/24 History
25 mcg/actuation powdr for Lung/Breathing Issues
inhalation (Anoro Ellipta)
apixaban 5 mg tablet (Eliquis) See Rx Instructions .ROUTE 02/19/24 02/18/24 02/17/24 18:00 History
.COMPLEX Blood Clot Prevention/Tx
ceftriaxone 2 gram solution for 2,000 mg IV Q24H Infection 02/19/24 02/18/24 02/17/24 18:00 History
injection
Review of Systems
-
Unable to Obtain full review of systems at this time due to: Patient Intubation
Vitals / Labs / Diagnostic Testing
Vital Signs
Temp Pulse Resp BP Pulse Ox
98.6 F 81 14 116/67 98
02/20/24 15:54 02/20/24 13:50 02/20/24 13:50 02/20/24 06:00 02/20/24 13:50
Lab Data
02/20/24 13:49
Laboratory Results
02/19/24 02/20/24 02/20/24
19:38 02:09 13:49
PT 17.6 H
INR 1.44
APTT 94.2 H 87.7 H 32.7
pH 7.33 L
pCO2 48
pO2 200 H
HCO3 25.3
O2 Delivery Level vent
Microbiology
02/20/24 05:58 Heart Gram Stain - Preliminary
02/20/24 05:58 Heart Gram Stain - Preliminary
Diagnostic Testing:
Physical Exam
-
HEENT: Normocephalic
Cardiovascular: S1/S2
Respiratory: Clear, Non-Labored Respirations and Other (Chest tube in place without air leak or excessive drainage)
GI: Soft and Non Distended
Neurology: Awake and Alert
Skin: Warm
General: Comfortable
Assessment
-
Status post mitral valve/aortic valve replacement Dr. Rashid 02/20/2024
Streptococcus bovis [place] aortic valve and mitral valve infective endocarditis 12/2023 on antibiotics
Severe MR/moderate to severe AI
Antibiotics will continue through 02/28/2024
Conditions present prior admission:
Endocarditis as above
Left lower extremity deep venous thrombosis 12/2023
Asthma
Tobacco abuse
Bilateral shoulder replacement
Right total hip replacement
Assessment and plan:
His doing well postop-currently on mechanical ventilation and appears comfortable.
ABG reviewed:
Continue SIMV mode with no change
Spontaneous breathing trial per protocol once sedation wears off.
Anemia noted-no evidence of acute bleeding
Follow H&H serially
Hemodynamics -PA catheter in place.
Weaning off vasoactive drugs.
Adequate urinary output
Renal function is normal
Chest tube with no excessive drainage-no air leak.
Chest x-ray reviewed: With no pneumothorax or fluid collections.
Remain nothing by mouth
Head of the bed elevation
Glycemic control per protocol
DVT prophylaxis when safe from the surgical perspective.
Critical care statement: A total of 32 minutes of critical care time was provided for this patient today. This includes management of unstable vital signs, evaluation of the patient at bedside, reviewing the patient's pertinent medical records
including ventilator settings, arterial blood gases, radiographs, microbiology, laboratory evaluations and discussion with primary team, critical care nursing, and respiratory therapy.
[2024-02-20 16:35] LABS: Glucose - Point of Care 107 mg/dl (70-99)
--- NOTE | 2024-02-20 16:54 | W.PN.UPDATE ---
Update Note
Progress Note Update
58-year-old male with known DVT and endocarditis was electively admitted 2 days prior for a heparin bridge off Eliquis. He was then taken to the CV OR today with Dr. Rashid for a MVR/AVR.
IV fluids: 1200
U.O.:� 650
UF:� 2700
Blood:� None
Wires:� V
Inotropes:� epi
Pressors:� levophed
Sedatives:� precedex
�
NEURO: sedated on precedex, pupils +2mm B/L
RESP: #8OT @XXcm> 500/60%/14/5. Lungs clear B/L. 2 mediastinal (15cc on arrival) and pleural (10 cc on arrival) chest tubes to -20cm suction. Sanguineous drainage
CV: RRR +S1, S2, no S3, no�rub, no murmur. Dermabond to median sternotomy. RIJ w/[place]
ABD: round, soft, no BS
EXT: no edema, +2/4 DP pulses B/L, no femoral bruit
: Coleman with clear yellow urine
�
A/P: POD #0 s/p MVR #33 Mitris Resilia and AVR #25 Inspiris Resilia
STEPHANIE: EF 60-65% AV mean gradient 9mmg and MV mean gradient 4mmHg�
- wean and extubate
- titrate levo for MAPs >65
- Continue Epi and check MVO2
- Follow up post-op labs and EKG
- will start ASA when tolerating PO
- will need instruction regarding antibiotic prophylaxis for dental and invasive procedures
- Cardiology consulted
�
# acute surgical blood loss anemia-expected
- trend CBC
�
# Hyperglycemia
- Continue insulin gtt x 24 hrs
[2024-02-20 17:14] VITALS: BP_SYST 111
--- NOTE | 2024-02-20 17:14 | PTCARENOTE ---
placed on CPAP by POT FLUXER @ 1655. on CPAP wean till 172. will draw labs and send at this time. tolerating wean.
[2024-02-20 17:30] LABS: Glucose - Point of Care 100 mg/dl (70-99)
[2024-02-20 17:37] LABS: B.E. 0.4 mmol/L; Ionized Calcium 1.27 mMOL/L (1.15-1.33); O2 Saturation % 99.8 % (94-98); PCO2 45 mmHg (35-48); PO2 182 mmHg (83-108); pH 7.37 (7.35-7.45)
--- NOTE | 2024-02-20 17:43 | PTCARENOTE ---
extubated at 1745 to 6L nc
[2024-02-20 17:48] LABS: Hematocrit 30.8 % (39.0-52.0); Hemoglobin 10.4 g/dL (13.0-18.0); Platelet Count 156 10^3/uL (130-400)
[2024-02-20] MEDS: DILAUDID 0.5 MG IV ×2 (17:51→21:08)
[2024-02-20] MEDS: ANCEF 5 IV (17:59)
[2024-02-20 18:35] LABS: Glucose - Point of Care 94 mg/dl (70-99)
[2024-02-20] MEDS: DILAUDID 0.25 MG IV (19:08)
[2024-02-20] MEDS: ROXICODONE 5 MG PO (19:09)
[2024-02-20] MEDS: LOW STRENGTH ASPIRIN 81 MG PO (19:09)
[2024-02-20] MEDS: SENOKOT-S 1 TABLET PO (19:09)
--- NOTE | 2024-02-20 20:00 | PTCARENOTE ---
Received pt from mihai RN, PT AAOx4 w/ complaints of pain from chest tube sights. NS on monitor VSS, 6L NC weaned down to 3L, CTx3 with minimal drainage GI hypoactive bs, DAVID Coleman wnl, all surgical sights CDI, OLE mccray @[facility]. see worklist
for detailed assessment
[2024-02-20 20:45] LABS: Glucose - Point of Care 129 mg/dl (70-99)
[2024-02-20] MEDS: FLEXERIL 5 MG PO (21:08)
[2024-02-20] MEDS: NEURONTIN 100 MG PO (21:09)
[2024-02-20] MEDS: TYLENOL 1000 MG PO (21:09)
[2024-02-20] MEDS: PACERONE 200 MG PO (21:09)
[2024-02-21] VITALS (9 sets, daily range): BP systolic 109–136; BP diastolic 79–112; PULSE 83; O2SAT 95–97; BMI 23.4
[2024-02-21 00:04] LABS: Glucose - Point of Care 70 mg/dl (70-99)
[2024-02-21 01:23] LABS: Glucose - Point of Care 97 mg/dl (70-99)
[2024-02-21] MEDS: DILAUDID 0.5 MG IV ×3 (02:42→22:50)
[2024-02-21] MEDS: ANCEF 5 IV ×2 (02:43→11:37)
[2024-02-21 03:34] LABS: Glucose - Point of Care 106 mg/dl (70-99)
[2024-02-21 03:48] LABS: Hematocrit 29.4 % (39.0-52.0); Hemoglobin 9.8 g/dL (13.0-18.0); Mean Corp Hgb Conc. 33.3 g/dL (33.0-37.0); Mean Corpuscular Hgb 28.2 pg (27.0-31.0); Mean Corpuscular Volume 84.7 fL (80.0-94.0); Mean Platelet Volume 10.5 fL (7.4-10.4); Platelet Count 146 10^3/uL (130-400); Red Blood Cell Count 3.47 10^6/uL (4.70-6.10); Red Cell Dist. Width 15.6 % (11.5-14.5); White Blood Cell Count 13.1 10^3/uL (4.8-10.8)
[2024-02-21 04:19] LABS: Blood Urea Nitrogen 18 mg/dl (9-20); Carbon Dioxide 27 mmol/L (22-30); Chloride 102 mmol/L (98-107); Estimated Creatinine Clearance 119 ml/min; Glucose 97 mg/dl (70-99); Magnesium 2.2 mg/dl (1.6-2.3); Potassium 4.6 mmol/L (3.5-5.1); Sodium 134 mmol/L (135-145); eGFR > 60.00
--- NOTE | 2024-02-21 05:48 | W.PN.CT ---
Addendum entered and electronically signed by Chandu Rashid MD 02/21/24 07:38:
I saw and examined the patient.
The PA's note was reviewed and I agree with the note.
Comment:
Looks great. Day 1.
Bulb CTs
D/C mckeon
OOB/IS/ambulate later
Start Eliquis prior to D/C
Original Note:
Today's Communication / Plan
-
-pod #1
-doing well, no issues overnight
-CI 3.01, CO 5.78. Drips: insulin
-CT output: 2 meds 130/285, L pleur 80/120 in 12/24 hrs
-deline (done)
-d/c Mckeon
-current meds (ASA, Amio, Lopressor, iv Ceftriaxone - continue through 02/28/2024 per ID, Protonix, Neurontin tid). Pt was on Heparin bridge prior to OR for recent DVT and Eliquis at home.
-encourage IS, OOB
Assessment / Plan
-
Assessment:
-S/p MVR w/ placement of #33 MITRIS RESILIA; AVR w/ placement of #25 INSPIRIS RESILIA; ELAA w/ 45mm AtriClip by Dr. Rashid on 02/20/24, pod #1
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
-Aortic valve endocarditis (Strep bovis)/Moderate AI
-Mild TR
-LVEF 55-60%
-LLE DVT 12/2023 (on Eliquis)- Heparin bridge preop
-Chronic anemia
-Asthma/emphysema
-Active tobacco abuse (since age 16, ~ 10 cigs/day, heaviest 1ppd)
-Right wrist joint pain S/P steroid injection
-BPH
-Recent hyponatremia
-Recent elevated liver enzymes
-S/p R THR
-Acute on chronic postop blood loss anemia- no active bleed, no transfusion
-Acute postop atelectasis
-Acute postop hypovolemia with subsequent hypervolemia
-Acute postop 1st degree AVB
Discussed patient care with: Nursing and Care Team
Subjective
Procedure
MVR w/ placement of #33 MITRIS RESILIA; AVR w/ placement of #25 INSPIRIS RESILIA; ELAA w/ 45mm AtriClip by Dr. Rashid on 02/20/24
-
Date of Service: February 20, 2024
Objective Data
-
Lab Results
02/20/24 17:24
02/20/24 13:49
PT 17.6 Sec (11.4-14.6) H 02/20/24 13:49
INR 1.44 02/20/24 13:49
APTT 32.7 Sec (23.4-35.0) 02/20/24 13:49
Vital Signs
Vital Signs
Temp Pulse Resp BP Pulse Ox
98.4 F 68 9 116/67 99
02/20/24 18:02 02/20/24 23:00 02/20/24 23:00 02/20/24 06:00 02/20/24 23:00
CT Intake/Output/Weight
02/20/24 02/20/24 02/21/24
06:59 18:59 06:59
Intake Total 702.9 / 908.1 205.2 / 908.1
Output Total 1015 / 1590 575 / 1590
Balance -312.1 / -681.9 -369.8 / -681.9
SaO2: 99
Physical Exam
-
General: Awake and AOx3
Cardiovascular: Regular rate & rhythm, No Murmurs and Rub
Respiratory: Decreased Breath Sounds
Sternum: Stable
Incision: Clean, Dry and Dressing Intact
Extremities: No Edema (2+ DP b/l)
Abdomen: soft, nondistended, + decreased bowel sounds
Data Reviewed
-
Lab Results: Results Reviewed
Medications: Active Meds Reviewed
Chest X-Ray: Report Reviewed and Image Reviewed
ECG: Report Reviewed and Image Reviewed
[2024-02-21] MEDS: TYLENOL 1000 MG PO ×3 (05:52→22:51)
[2024-02-21] MEDS: ROXICODONE 5 MG PO ×3 (05:52→20:30)
[2024-02-21 07:59] LABS: Glucose - Point of Care 87 mg/dl (70-99)
[2024-02-21 07:59] LABS: Glucose - Point of Care 90 mg/dl (70-99)
--- NOTE | 2024-02-21 08:32 | W.PN.CD ---
Today's Communication / Plan
-
h/o DVT - will need anticoagulation resumed when OK with CT surgery
Monitor ECG and tele - todays ECG with first degree avb and SD 308
Impression / Plan
-
58 year old male with h/o strep Bovis endocarditis who underwent AVR and MVR 02/20/28. PMH notable for asthma, and DVT
MVR w/ placement of #33 MITRIS RESILIA; AVR w/ placement of #25 INSPIRIS RESILIA; ELAA w/ 45mm AtriClip by Dr. Rashid on 02/20/24, pod #1
- continue post op tx per CT
post op anemia - monitor
First degree avb - SD - 308
- monitor closely
h/o DVT - on Eliquis prior to admit. Resume anticoagulation when ok form post op standpoint
asthma - history . resp status stable
Physical Exam
Vital Signs/Labs
Vital Signs
Temp Pulse Resp BP Pulse Ox
98.0 F 85 18 118/80 99
02/21/24 08:00 02/21/24 08:00 02/21/24 08:00 02/21/24 06:49 02/21/24 08:00
02/20/24 02/21/24 02/22/24
06:59 06:59 06:59
Actual Weight 74.8 kg 74.1 kg
02/21/24 03:27
02/21/24 03:27
PT 17.6 Sec (11.4-14.6) H 02/20/24 13:49
INR 1.44 02/20/24 13:49
APTT 32.7 Sec (23.4-35.0) 02/20/24 13:49
Magnesium 2.2 mg/dl (1.6-2.3) 02/21/24 03:27
Physical Exam
Constitutional: No acute distress
Cardiovascular: Rhythm & rate is regular
Respiratory: Wheeze Absent and Rhonchi Absent
GI: Soft
Neuro/Psych: Alert
Data Reviewed
-
Date of Service: February 21, 2024
Medical Decision Making: Reviewed Test Results
EKG: Report Reviewed by me
Echo: Report Reviewed by me
Medical Tests (PFT, Pathology etc): Report Reviewed by me
Labs: Labs Reviewed by me
[2024-02-21] MEDS: NON-FORMULARY ITEM 1 UNIT INH ×2 (08:48→08:49)
[2024-02-21] MEDS: MAGNESIUM OXIDE 500 MG PO ×2 (08:57→20:29)
[2024-02-21] MEDS: FLEXERIL 10 MG PO ×2 (08:57→20:28)
[2024-02-21] MEDS: PROTONIX 40 MG PO (08:57)
[2024-02-21] MEDS: PACERONE 200 MG PO ×3 (08:57→22:51)
[2024-02-21] MEDS: LOPRESSOR 12.5 MG PO ×2 (08:57→15:16)
[2024-02-21] MEDS: LOW STRENGTH ASPIRIN 81 MG PO (08:57)
[2024-02-21] MEDS: SENOKOT-S 1 TABLET PO ×2 (08:57→20:28)
[2024-02-21] MEDS: BACTROBAN 2% OINTMENT 1 APPLIC NASAL ×2 (08:58→20:27)
--- NOTE | 2024-02-21 09:06 | W.PN.ANS.POP ---
Anesthesia Post Operative
- Anesthesia Post Op Note
Vital Signs Stable-See Nursing Note: Yes
Airway Patent: Yes
Adequate Pain Control: Yes
Change in Mental Status: No
Current Postoperative Nausea & Vomiting: No
Anesthesia Complications: No
General Anesthetic Recall: No
Unplanned Admission: No
Post Op Hydration Adequate: Yes
- -
Pt noted to have some edema to B/L hands. He states he has experienced some degree of edema to hands and feet, along with numbness of hands prior to surgery. He had previously been advised to see a spine surgeon for evaluation, as per patient.
--- NOTE | 2024-02-21 09:44 | PTCARENOTE ---
vital signs captured from previous shift RN.
assumed care of pt from previous shift RN, pt assessed sitting in chair, sinus rhythm on tele w 1st degree HB on tele, VSS, + peripheral pulses, trace edema to bilateral lower extremities, Lungs diminished, pox 98-99% on 2L NC, 95-96% on RA.
Coughing and deep breathing encouraged. +BS, DTV. Post op dressings intact, CTs w minimal amount of drainage. Right upper extremity PICC and right IJ cordis flush easily.
Drips: Insulin infusing per glycemic protocol
[2024-02-21 10:03] LABS: Glucose - Point of Care 146 mg/dl (70-99)
[2024-02-21] MEDS: NEURONTIN 100 MG PO (10:05)
[2024-02-21] MEDS: NSS IV (11:37)
--- NOTE | 2024-02-21 12:15 | PTCARENOTE ---
VSS, sinus rhythm maintained on tele, pt remains OOB, pain is well controlled.
[2024-02-21 12:28] LABS: Glucose - Point of Care 95 mg/dl (70-99)
--- NOTE | 2024-02-21 13:12 | W.PN.ID1 ---
Date of Service
Date of Service: February 21, 2024
Today's Communication
- plan remains to continue ceftriaxone through 02/27
- has PICC line - home infusion company will remove after completion of therapy
- follow clinically - likely will not need follow up with ID as short duration of remaining treatment
Assessment / Plan
# Strep bovis [id number] AV and MV infective endocarditis
# For elective valve surgeries 02/20/24
- OR valve tissues cultures reviewed, gram stains neg, no growth to date
- plan remains to continue ceftriaxone through 02/27
- has PICC line - home infusion company will remove after completion of therapy
- follow clinically - likely will not need follow up with ID as short duration of remaining treatment
Chief Complaint
-: Other (endocarditis)
Subjective / Review of Systems
afebrile
bp stable
mild post op leukocytosis - as expected
hgb 9.8
cr 0.7
tissue cultures reviewed - gram stains negative, culture no growth
delining and de-mckeon
extensive outlining of the timing of post operative IV antibiotics with myself, patient, and CT surgery PA who was kind to join in the discussion. I believe we are on the same page now as to the plans which remain unchanged. Mr Aggarwal asked
about Q6 monthly reassessment for relapse and I explained that would not be standard and is not recommended.
Vital Signs / Physical Exam
Vital Signs
Vital Signs
Temp Pulse Resp BP Pulse Ox
98.0 F 85 18 118/80 96
02/21/24 08:00 02/21/24 08:00 02/21/24 08:00 02/21/24 06:49 02/21/24 09:53
Physical Exam
Constitutional: No Acute Distress
Cardiovascular: Regular Rate and S1/S2; Negative Murmur or Rub
Pulmonary: Clear and Symmetric; Negative Wheezes or Rales
Gastrointestinal: Soft, Non Tender, Non Distended and Normal Bowel Sounds
Skin: Warm and Dry; Negative Rash or Jaundice
Objective Data
Lab Data
Lab Results
02/21/24 03:27
02/21/24 03:27
PT 17.6 Sec (11.4-14.6) H 02/20/24 13:49
INR 1.44 02/20/24 13:49
APTT 32.7 Sec (23.4-35.0) 02/20/24 13:49
Estimated Creat Clear 119 ml/min 02/21/24 03:27
Total Bilirubin 0.3 mg/dl (0.2-1.3) 02/18/24 09:57
AST 23 U/L (17-59) 02/18/24 09:57
ALT 26 U/L (0-50) 02/18/24 09:57
Alkaline Phosphatase 78 U/L (38-126) 02/18/24 09:57
Most recent labs reviewed.
Micro Results:
02/20/24 05:58 Anaerobic Culture - Preliminary
Heart Culture pending. Anaerobic cultures are examined after 3
days incubation. Additional information to follow.
02/20/24 05:58 Tissue Culture - Preliminary
Heart No Growth After 18-24 Hours
Gram Stain - Preliminary
02/20/24 05:58 Anaerobic Culture - Preliminary
Heart Culture pending. Anaerobic cultures are examined after 3
days incubation. Additional information to follow.
02/20/24 05:58 Tissue Culture - Preliminary
Heart No Growth After 18-24 Hours
Gram Stain - Preliminary
02/18/24 Chest/Abd/Pelvis CTA: Calcific atherosclerotic changes of the thoracic aorta (predominantly involving the aortic arch) and the abdominal aorta without aneurysmal dilatation or findings to suggest dissection. Some suspected changes of
centrilobular emphysema. Large volume widespread colonic stool. Three small scattered low-attenuation hepatic lesions only the largest of which in the left lobe can be confirmed as a cyst. Mildly enlarged prostate.
Care Review
Plan reviewed with: Other Provider (PA - duration of antibiotics)
--- NOTE | 2024-02-21 13:32 | W.PN.INTV ---
Today's Communication / Plan
Recommendations
Continue postoperative care
Eventual to restart anticoagulation
Follow chest tube output
Analgesia, pain currently is relatively controlled.
Increase activity as able
Sign off
Assessment
-
Status post mitral valve/aortic valve replacement Dr. Rashid 02/20/2024
Streptococcus bovis [place] aortic valve and mitral valve infective endocarditis 12/2023 on antibiotics
Severe MR/moderate to severe AI
Antibiotics will continue through 02/28/2024
Conditions present prior admission:
Endocarditis as above
Left lower extremity deep venous thrombosis 12/2023
Asthma
Tobacco abuse
Bilateral shoulder replacement
Right total hip replacement
Assessment and plan:
Doing well postoperative day 1
Extubated, tolerating well.
On low rate supplemental oxygen
-
Anemia noted-no evidence of acute bleeding
Follow H&H serially
Hemodynamically stable.
Vasoactive drugs have been discontinued. Eventual anticoagulation
Chest tube with no excessive drainage-no air leak.
Chest x-ray reviewed: With no pneumothorax or fluid collections. Minimal bibasilar atelectasis.
Advance diet as tolerated
Head of the bed elevation
History of DVT, to restart anticoagulation when okay with surgery
Infectious disease correspondence reviewed: Patient will continue antibiotics for endocarditis through 02/28/2024.
Glycemic control per protocol
DVT prophylaxis when safe from the surgical perspective.
Transitioned to telemetry.
Critical care team will sign off
Subjective Dataa
Subjective Data
Date of Service:
Date of Service: February 21, 2024
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
Subjective:
Pain is controlled
Denies any shortness of breath at rest
No significant cough or phlegm production
Review of Systems
General: Fever (n)
Cardiopulmonary: Dyspnea (none at rest)
GI: Abdominal Pain (n) and Nausea (n)
Objective Data
Data Reviewed
Vital Signs / I&O / Oxygen:
Vital Signs
Temp Pulse Resp BP Pulse Ox
98.0 F 86 16 109/83 94
02/21/24 12:21 02/21/24 13:00 02/21/24 12:21 02/21/24 12:21 02/21/24 12:21
Intake and Output
02/20/24 02/21/24 02/22/24
06:59 06:59 06:59
Intake Total 780 / 780 956.8 / 956.8 131.1 / 131.1
Output Total 2380 / 2380
Balance 780 / 780 -1423.2 / -1423.2 131.1 / 131.1
SaO2 [SIMV] 98
SaO2 94
Nasal Cannula flow liters per 3
minute
Physical Exam
General: Respiratory Distress (n)
HEENT: Normocephalic
Cardiovascular: Murmur
Respiratory: Clear and Chest Tube (No excessive drainage or air leak)
GI: Non Distended
Neurology: Awake, Alert, Oriented and No Motor Deficits
Labs/Micro/Reports
Lab Data
02/21/24 03:27
02/21/24 03:27
Laboratory Results
02/20/24 02/20/24
13:49 17:24
PT 17.6 H
INR 1.44
APTT 32.7
pH 7.33 L 7.37
pCO2 48 45
pO2 200 H 182 H
HCO3 25.3 26.0
O2 Delivery Level vent
Microbiology
02/20/24 05:58 Heart Anaerobic Culture - Preliminary
Culture pending. Anaerobic cultures are examined after 3
days incubation. Additional information to follow.
02/20/24 05:58 Heart Tissue Culture - Preliminary
No Growth After 18-24 Hours
02/20/24 05:58 Heart Gram Stain - Preliminary
02/20/24 05:58 Heart Anaerobic Culture - Preliminary
Culture pending. Anaerobic cultures are examined after 3
days incubation. Additional information to follow.
02/20/24 05:58 Heart Tissue Culture - Preliminary
No Growth After 18-24 Hours
02/20/24 05:58 Heart Gram Stain - Preliminary
[2024-02-21] MEDS: ROCEPHIN 2000 MG IV (14:20)
--- NOTE | 2024-02-21 14:40 | CM ---
Chart reviewed. Patient is independent of ADLS, lives with his in a 2 S[facility], 3 BETY, 0 DME. Patient was receiving IV ceftriaxone antibiotics prior to surgery with [facility]. Patient will need an order to resume antibiotics and updated
clinical faxed to [facility] prior to discharge. [facility] does not dispense IV antibiotics on the Sunday. Plan is for the patient to return home with CT Transitional RN and IV antibiotics with [facility]. CM to follow
[2024-02-21] MEDS: STERILE WATER FOR INJECTION 20 ML IV (15:13)
[2024-02-21] MEDS: NEURONTIN 200 MG PO ×2 (15:16→22:51)
--- NOTE | 2024-02-21 15:26 | PTCARENOTE ---
Pt was able to void s/p mckeon removal. Pt assisted back to bed, CTs placed to bulb suction. STAT dose metoprolol administered as ordered.
--- NOTE | 2024-02-21 15:28 | PTCARENOTE ---
glycemic discontinued as ordered.
--- NOTE | 2024-02-21 20:00 | PTCARENOTE ---
Received pt from mihai RN, PT AAOx4 w/ complaints of pain from chest tube sights. NS on monitor VSS, RA decreased lung sounds, CTx3 to bulb suction with minimal drainage GI & wnl, all surgical sights CDI, RIJ cordis & PICC WNL. see worklist
for detailed assessment
[2024-02-21] MEDS: LOPRESSOR 25 MG PO (20:29)
[2024-02-22] VITALS (14 sets, daily range): BP systolic 99–127; BP diastolic 69–90; PULSE 85; O2SAT 93–96; BMI 24.1
--- NOTE | 2024-02-22 | PTCARENOTE ---
no change from previous assessment
--- NOTE | 2024-02-22 01:01 | W.PN.CT ---
Addendum entered and electronically signed by Chandu Rashid MD 02/22/24 08:57:
I saw and examined the patient.
The PA's note was reviewed and I agree with the note.
Comment: Doing well
- D/C CTs
- D/C Cordis
- Continue ABX
- OOB/IS/ambulate
- Eliquis tomorrow
Original Note:
Today's Communication / Plan
-
POD #2
- Doing well, no issues overnight
- CT output: 2 meds 40/50, L pleur 20/30 in 12/24 hrs
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
- Current meds (ASA, Amio, Lopressor, iv Ceftriaxone - continue through 02/28/2024 per ID, Protonix, Neurontin tid). Pt was on Heparin bridge prior to OR for recent DVT and Eliquis at home.
>>will restart Eliquis prior to DC
>BB dose increased to 25mg BID; uptirtrate as needed; transition to Toprol-XL upon DC
- IV lasix today
- Encourage IS, OOB
Assessment / Plan
-
Assessment:
-S/p MVR w/ placement of #33 MITRIS RESILIA; AVR w/ placement of #25 INSPIRIS RESILIA; ELAA w/ 45mm AtriClip by Dr. Rashid on 02/20/24, pod #2
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
-Aortic valve endocarditis (Strep bovis)/Moderate AI
-Mild TR
-LVEF 55-60%
-LLE DVT 12/2023 (on Eliquis)- Heparin bridge preop
-Chronic anemia
-Asthma/emphysema
-Active tobacco abuse (since age 16, ~ 10 cigs/day, heaviest 1ppd)
-Right wrist joint pain S/P steroid injection
-BPH
-Recent hyponatremia
-Recent elevated liver enzymes
-S/p R THR
-Acute on chronic postop blood loss anemia- no active bleed, no transfusion
-Acute postop atelectasis
-Acute postop hypovolemia with subsequent hypervolemia
-Acute postop 1st degree AVB
- Acute post-op hyponatremia
Subjective
Procedure
MVR w/ placement of #33 MITRIS RESILIA; AVR w/ placement of #25 INSPIRIS RESILIA; ELAA w/ 45mm AtriClip by Dr. Rashid on 02/20/24
-
Date of Service: February 22, 2024
Objective Data
-
02/22/24 04:52
02/22/24 04:52
PT 17.6 Sec (11.4-14.6) H 02/20/24 13:49
INR 1.44 02/20/24 13:49
APTT 32.7 Sec (23.4-35.0) 02/20/24 13:49
Vital Signs
Vital Signs
Temp Pulse Resp BP Pulse Ox
98.6 F 87 18 103/76 95
02/22/24 00:01 02/22/24 00:00 02/22/24 00:01 02/22/24 00:00 02/21/24 20:34
CT Intake/Output/Weight
02/21/24 02/21/24 02/22/24
06:59 18:59 06:59
Intake Total 253.9 / 956.8 141.1 / 141.1
Output Total 1365 / 2380 360 / 780 420 / 780
Balance -1111.1 / -1423.2 -218.9 / -638.9 -420 / -638.9
SaO2: 95
--- NOTE | 2024-02-22 04:00 | PTCARENOTE ---
no change from previous assessment
[2024-02-22] MEDS: ROXICODONE 5 MG PO ×2 (04:42→19:13)
[2024-02-22] MEDS: DILAUDID 0.5 MG IV (04:51)
[2024-02-22 05:07] LABS: Hematocrit 28.2 % (39.0-52.0); Hemoglobin 9.5 g/dL (13.0-18.0); Mean Corp Hgb Conc. 33.7 g/dL (33.0-37.0); Mean Corpuscular Hgb 28.5 pg (27.0-31.0); Mean Corpuscular Volume 84.7 fL (80.0-94.0); Mean Platelet Volume 10.3 fL (7.4-10.4); Platelet Count 123 10^3/uL (130-400); Red Blood Cell Count 3.33 10^6/uL (4.70-6.10); Red Cell Dist. Width 15.8 % (11.5-14.5)
[2024-02-22 05:32] LABS: Blood Urea Nitrogen 15 mg/dl (9-20); Calcium 8.7 mg/dl (8.4-10.2); Carbon Dioxide 30 mmol/L (22-30); Chloride 96 mmol/L (98-107); Estimated Creatinine Clearance 119 ml/min; Glucose 119 mg/dl (70-99); Magnesium 1.7 mg/dl (1.6-2.3); Potassium 4.4 mmol/L (3.5-5.1); Sodium 129 mmol/L (135-145); eGFR > 60.00
[2024-02-22] MEDS: TYLENOL 1000 MG PO ×3 (06:42→22:23)
--- NOTE | 2024-02-22 08:00 | PTCARENOTE ---
vital signs captured from previous shift RN.
assumed care of pt from previous shift RN, pt assessed sitting in chair, sinus rhythm on tele w 1st degree HB on tele, VSS, + peripheral pulses, trace edema to bilateral lower extremities, Lungs diminished, pox 98-99% on RA, Coughing and deep
breathing encouraged. +BS, voids spontaneously. Post op dressings intact, CTs w minimal amount of drainage. Right upper extremity PICC and right IJ cordis flush easily.
--- NOTE | 2024-02-22 08:39 | W.PN.CD ---
Today's Communication / Plan
-
continue post op care
Impression / Plan
-
58 year old male with h/o strep Bovis endocarditis who underwent AVR and MVR 02/20/28. PMH notable for asthma, and DVT
MVR w/ placement of #33 MITRIS RESILIA; AVR w/ placement of #25 INSPIRIS RESILIA; ELAA w/ 45mm AtriClip by Dr. Rashid on 02/20/24, pod #1
- continue post op tx per CT
-getting a dose of lasix today
post op anemia - monitor
First degree avb -
- monitor closely
h/o DVT - on Eliquis prior to admit. Resume anticoagulation when ok form post op standpoint
asthma - history . resp status stable
Subjective:
He is feeling pretty good, trying to take deep breaths
Physical Exam
Vital Signs/Labs
Vital Signs
Temp Pulse Resp BP Pulse Ox
98.7 F 84 18 107/69 95
02/22/24 04:00 02/22/24 06:00 02/22/24 04:00 02/22/24 04:00 02/22/24 01:04
02/21/24 02/22/24 02/23/24
06:59 06:59 06:59
Actual Weight 74.1 kg 76.3 kg
02/22/24 04:52
02/22/24 04:52
PT 17.6 Sec (11.4-14.6) H 02/20/24 13:49
INR 1.44 02/20/24 13:49
APTT 32.7 Sec (23.4-35.0) 02/20/24 13:49
Magnesium 1.7 mg/dl (1.6-2.3) 02/22/24 04:52
Physical Exam
Constitutional: No acute distress
Cardiovascular: Rhythm & rate is regular, Pedal edema is absent, JVD pressure is normal, Systolic murmur absent and Diastolic murmur absent
Respiratory: Respiratory effort normal and Other (dereased at the right base)
Neuro/Psych: AO x 3
Data Reviewed
-
Date of Service: February 22, 2024
[2024-02-22] MEDS: NEURONTIN 200 MG PO ×3 (09:38→22:23)
[2024-02-22] MEDS: LOW STRENGTH ASPIRIN 81 MG PO (09:38)
[2024-02-22] MEDS: BACTROBAN 2% OINTMENT 1 APPLIC NASAL ×2 (09:38→20:48)
[2024-02-22] MEDS: PACERONE 200 MG PO ×4 (09:38→22:23)
[2024-02-22] MEDS: LOPRESSOR PO (09:38)
[2024-02-22] MEDS: LASIX 40 MG IV ×2 (09:38→16:24)
[2024-02-22] MEDS: MAGNESIUM OXIDE 500 MG PO ×2 (09:38→20:48)
[2024-02-22] MEDS: KCL 20 MEQ PO ×2 (09:38→20:48)
[2024-02-22] MEDS: PROTONIX 40 MG PO (09:39)
[2024-02-22] MEDS: DULCOLAX 10 MG PO (09:39)
[2024-02-22] MEDS: SENOKOT-S 1 TABLET PO ×2 (09:39→20:48)
[2024-02-22] MEDS: NSS IV (09:39)
--- NOTE | 2024-02-22 10:12 | W.PN.ID1 ---
Date of Service
Date of Service: February 22, 2024
Today's Communication
- plan remains to continue ceftriaxone through 02/27
- has PICC line - home infusion company will remove after completion of therapy
- ID will follow peripherally, please call if questions arise; outpatient follow up with CT surgery
Assessment / Plan
# Strep bovis [place] AV and MV infective endocarditis
# For elective valve surgeries 02/20/24
- OR valve tissues cultures reviewed, gram stains neg, no growth to date
- plan remains to continue ceftriaxone through 02/27
- has PICC line - home infusion company will remove after completion of therapy
- ID will follow peripherally, please call if questions arise; outpatient follow up with CT surgery
Chief Complaint
-: Other (endocarditis)
Subjective / Review of Systems
afebrile
bp stbale
minimal leukocytosis, cr stable, valve culture no growth to date
picc in place
no complaints
Vital Signs / Physical Exam
Vital Signs
Vital Signs
Temp Pulse Resp BP Pulse Ox
98.7 F 84 18 107/69 95
02/22/24 04:00 02/22/24 06:00 02/22/24 04:00 02/22/24 04:00 02/22/24 01:04
Physical Exam
Constitutional: No Acute Distress
Cardiovascular: Regular Rate and S1/S2; Negative Murmur or Rub
Pulmonary: Clear and Symmetric; Negative Wheezes or Rales
Gastrointestinal: Soft, Non Tender, Non Distended and Normal Bowel Sounds
Skin: Warm and Dry; Negative Rash or Jaundice
Lines: PICC (no erythema/warmth/tenderness/drainage)
Objective Data
Lab Data
Lab Results
02/22/24 04:52
02/22/24 04:52
PT 17.6 Sec (11.4-14.6) H 02/20/24 13:49
INR 1.44 02/20/24 13:49
APTT 32.7 Sec (23.4-35.0) 02/20/24 13:49
Estimated Creat Clear 119 ml/min 02/22/24 04:52
Total Bilirubin 0.3 mg/dl (0.2-1.3) 02/18/24 09:57
AST 23 U/L (17-59) 02/18/24 09:57
ALT 26 U/L (0-50) 02/18/24 09:57
Alkaline Phosphatase 78 U/L (38-126) 02/18/24 09:57
Most recent labs reviewed.
Micro Results:
02/20/24 05:58 Anaerobic Culture - Preliminary
Heart Culture pending. Anaerobic cultures are examined after 3
days incubation. Additional information to follow.
02/20/24 05:58 Tissue Culture - Preliminary
Heart No Growth After 18-24 Hours
Gram Stain - Preliminary
02/20/24 05:58 Anaerobic Culture - Preliminary
Heart Culture pending. Anaerobic cultures are examined after 3
days incubation. Additional information to follow.
02/20/24 05:58 Tissue Culture - Preliminary
Heart No Growth After 18-24 Hours
Gram Stain - Preliminary
02/18/24 Chest/Abd/Pelvis CTA: Calcific atherosclerotic changes of the thoracic aorta (predominantly involving the aortic arch) and the abdominal aorta without aneurysmal dilatation or findings to suggest dissection. Some suspected changes of
centrilobular emphysema. Large volume widespread colonic stool. Three small scattered low-attenuation hepatic lesions only the largest of which in the left lobe can be confirmed as a cyst. Mildly enlarged prostate.
Care Review
Plan reviewed with: Other Provider ([facility] Ct surgery)
[2024-02-22] MEDS: NON-FORMULARY ITEM 1 UNIT INH (10:13)
--- NOTE | 2024-02-22 10:16 | PTCARENOTE ---
CTs and cordis removed as ordered.
--- NOTE | 2024-02-22 12:26 | CM ---
Chart reviewed. Patient is independent of ADLS, lives with his in a 2 S[facility], 3 BETY, 0 DME. Patient currently receiving IV antibiotics through [facility]. I notified [facility] of patient's discharge tomorrow. Plan is for [facility] to
deliver the antibiotics on Sunday and RN to come out on Sunday. Updated clinical and script for antibiotic faxed over to [facility]. Plan is for the patient to return home with IV antibiotics with [facility] and CT Transitional RN. CM to
follow
[2024-02-22 12:50] LABS: Glucose - Point of Care 115 mg/dl (70-99)
[2024-02-22] MEDS: STERILE WATER FOR INJECTION 20 ML IV (14:38)
[2024-02-22] MEDS: ROCEPHIN 2000 MG IV (14:38)
--- NOTE | 2024-02-22 14:52 | PTCARENOTE ---
pacing wires insulated
--- NOTE | 2024-02-22 21:00 | PTCARENOTE ---
Patient received ambulating in room and to bathroom by self. Steady gait. Sternal precautions. Patient A+A+Ox3. No neurological deficits noted. No c/o headache, dizziness or lightheadedness. Room air. SaO2 93%. Occasional productive cough -
Small amount of thick whitish clear secretions. No c/o SOB. Chest tube dressing intact. Sinus Rhythm with First Degree AV Block. Heart rate 80-90's. V-Wires insulated. Patient with no c/o chest pain, pressure or discomfort. Additional dose of
Amiodarone 200 mg PO given per PA order. Sternal Aquacell dressing intact. Normoactive bowel sounds. No BM. Positive flatus. No c/o nausea. No vomiting. Voiding without difficulty. Patient with no c/o back or flank pain. Assessment as
documented.
[2024-02-22] MEDS: FLEXERIL 10 MG PO (22:23)
--- NOTE | 2024-02-23 | PTCARENOTE ---
Patient sleeping without difficulty. No further changes from previous assessment.
[2024-02-23 05:00] VITALS: BP 124/88
--- NOTE | 2024-02-23 05:15 | PTCARENOTE ---
Patient A+A+Ox3. No neurological deficits noted. Patient ambulating in room and to bathroom by self. Sternal Precautions. Voided 500 ml yellow, clear urine. Standing scale weight 73.5 kg. AM lab work collected and sent. Patient resting in bed
watching television. Assessment/Interventions as documented.
[2024-02-23] MEDS: TYLENOL 1000 MG PO (05:16)
[2024-02-23 05:17] LABS: Hematocrit 30.1 % (39.0-52.0); Hemoglobin 9.9 g/dL (13.0-18.0); Mean Corp Hgb Conc. 32.9 g/dL (33.0-37.0); Mean Corpuscular Hgb 28.5 pg (27.0-31.0); Mean Corpuscular Volume 86.7 fL (80.0-94.0); Mean Platelet Volume 10.4 fL (7.4-10.4); Platelet Count 151 10^3/uL (130-400); Red Blood Cell Count 3.47 10^6/uL (4.70-6.10); Red Cell Dist. Width 15.6 % (11.5-14.5); White Blood Cell Count 13.1 10^3/uL (4.8-10.8)
--- NOTE | 2024-02-23 05:23 | W.PN.CT ---
Addendum entered and electronically signed by Chandu Rashid MD 02/23/24 09:25:
I saw and examined the patient.
The PA's note was reviewed and I agree with the note.
Comment:
POD#3 s/p AVR/MVR/ELAA
No major overnight events. HD stable. Sinus w/ 1AVB. RA.
- Continue ABX per ID
- Start Eliquis, continue ASA, BB
- OOB/IS/ambulate
- D/C home later today
Original Note:
Today's Communication / Plan
-
-No major issues overnight. Hemodynamically and neurologically stable
-Off all drips
-Chest tubes and cordis d/c'd yesterday 02/21
-Continue PICC line for remote computer terminal operator Abx managed by ID
-Cont. Ceftriaxone through 02/27 per ID. Has PICC line
-Cont. current meds (ASA, Amio, Lopressor, Lasix, Ceftriaxone; will likely resume Eliquis today given recent DVT).
-Encourage use of IS
-OOB into chair/Ambulate
-Monitor hyponatremia, 131 today, was 129 yesterday, 139 preop
-Monitor temporary pacer wire (will cut prior to d/c home)
-Home likely tomorrow
Assessment / Plan
-
Assessment:
-S/p MVR w/ placement of #33 MITRIS RESILIA; AVR w/ placement of #25 INSPIRIS RESILIA; ELAA w/ 45mm AtriClip by Dr. Rashid on 02/20/24, pod #3
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
-Aortic valve endocarditis (Strep bovis)/Moderate AI
-Mild TR
-LVEF 55-60%
-LLE DVT 12/2023 (on Eliquis)- Heparin bridge preop
-Chronic anemia
-Asthma/emphysema
-Active tobacco abuse (since age 16, ~ 10 cigs/day, heaviest 1ppd)
-Right wrist joint pain S/P steroid injection
-BPH
-Recent hyponatremia
-Recent elevated liver enzymes
-S/p R THR
-Acute on chronic postop blood loss anemia- no active bleed, no transfusion
-Acute postop atelectasis
-Acute postop hypovolemia with subsequent hypervolemia
-Acute postop 1st degree AVB
-Acute post-op hyponatremia
Discussed patient care with: Cardiology, Nursing, Respiratory Therapy, Pharmacy and Care Team
Subjective
Procedure
MVR w/ placement of #33 MITRIS RESILIA; AVR w/ placement of #25 INSPIRIS RESILIA; ELAA w/ 45mm AtriClip by Dr. Rashid on 02/20/24
-
Date of Service: February 23, 2024
Pt c/o mild incisional pain, otherwise feels well. States pain much improved following chest tube removal yesterday
Objective Data
-
Lab Results
02/23/24 05:06
PT 17.6 Sec (11.4-14.6) H 02/20/24 13:49
INR 1.44 02/20/24 13:49
APTT 32.7 Sec (23.4-35.0) 02/20/24 13:49
Vital Signs
Vital Signs
Temp Pulse Resp BP Pulse Ox
97.9 F 85 16 124/88 96
02/23/24 05:00 02/23/24 05:00 02/23/24 05:00 02/23/24 05:00 02/23/24 05:00
CT Intake/Output/Weight
02/22/24 02/22/24 02/23/24
06:59 18:59 06:59
Intake Total 110 / 590 480 / 590
Output Total 990 / 1350 2000 / 3750 1750 / 3750
Balance -990 / -1208.9 -1890 / -3160 -1270 / -3160
SaO2: 96 (RA)
Physical Exam
-
General: Awake, Oriented and AOx3
Cardiovascular: Regular rate & rhythm, No Murmurs, No Rub and No Gallop
Respiratory: Decreased Breath Sounds
Sternum: Stable
Incision: Clean, Dry, Intact and Dressing Intact
Extremities: No Edema
Data Reviewed
-
Lab Results: Results Reviewed
Medications: Active Meds Reviewed
Chest X-Ray: Report Reviewed and Image Reviewed
ECG: Report Reviewed and Image Reviewed
[2024-02-23 05:26] VITALS: BMI 23.3
[2024-02-23 06:25] LABS: Blood Urea Nitrogen 16 mg/dl (9-20); Calcium 8.9 mg/dl (8.4-10.2); Carbon Dioxide 33 mmol/L (22-30); Chloride 93 mmol/L (98-107); Estimated Creatinine Clearance 104 ml/min; Glucose 117 mg/dl (70-99); Magnesium 2.1 mg/dl (1.6-2.3); Potassium 4.3 mmol/L (3.5-5.1); Sodium 131 mmol/L (135-145); eGFR > 60.00
[2024-02-23] MEDS: NON-FORMULARY ITEM 1 UNIT INH (07:29)
[2024-02-23 07:52] VITALS: BP 118/77
[2024-02-23] MEDS: NEURONTIN 200 MG PO (08:04)
[2024-02-23] MEDS: SENOKOT-S 1 TABLET PO (08:04)
[2024-02-23] MEDS: MAGNESIUM OXIDE 500 MG PO (08:04)
[2024-02-23] MEDS: LOW STRENGTH ASPIRIN 81 MG PO (08:04)
[2024-02-23] MEDS: PROTONIX 40 MG PO (08:04)
[2024-02-23 08:05] LABS: Glucose - Point of Care 132 mg/dl (70-99)
[2024-02-23] MEDS: BACTROBAN 2% OINTMENT 1 APPLIC NASAL (08:05)
--- NOTE | 2024-02-23 08:15 | PTCARENOTE ---
pt received from previous RN, oriented, OOB in chair. SR w/ 1st degree AVB, freq. PVCs. EKG completed, ORDERING BOX OPERATOR aware. V wire insulated. SBP 110s. palpable pulses, +1 LE edema. pt on RA, 96% POX. lungs clear. IS encouraged. pt abdomen s/n, denies n/v.
diet tolerated well. voids. ambulates independently. sternal dressing c/d/i. chest tube site c/d/i. RUE PICC in place. see worklist for VS, I&O, and assessment.
[2024-02-23] MEDS: PACERONE PO (08:22)
[2024-02-23] MEDS: ELIQUIS 5 MG PO (08:34)
--- NOTE | 2024-02-23 09:57 | PTCARENOTE ---
pt placed back to bed, V wire cut w/ another RN, site c/d/i. 2V CXR completed.
[2024-02-23 09:59] VITALS: BP 118/80
[2024-02-23 10:04] VITALS: BP 121/75
[2024-02-23 10:09] VITALS: BP 118/80; BP 121/75; PULSE 86; O2SAT 95; O2SAT 99
[2024-02-23] MEDS: NSS IV (10:35)
--- NOTE | 2024-02-23 10:59 | W.DCSUMMARY ---
Discharge Summary
Discharge Data
Date of Admission: 02/18/24
Date of Discharge: 02/23/24
-
Pending Results: No
Hospital Course
Primary care physician: Jabari Montgomery
Outpatient installment account checker: Marlon Elliott
Inpatient consultants: [facility], Infectious Diseases
Procedures:
1. Mitral valve replacement, aortic valve replacement, left atrial appendage exclusion
Primary Diagnosis:
1. Strep Bovis nikolai aortic and mitral valve endocarditis with aortic and mitral valve insufficiency
Secondary Diagnoses:
1. History of left lower extremity DVT on Eliquis
2. Emphysema-mild (noted on CT of chest)
3. Current tobacco abuse
4. Expected postoperative surgical blood loss anemia
5. Postoperative first-degree AV block
HPI: 58-year-old male recently admitted to [facility] on 01/13/2024 with left lower extremity edema rash and joint pain. Patient was started on Eliquis for LLE DVT. During this hospitalization, patient was found to have Strep
bovis nikolai aortic and mitral valve endocarditis and was started on IV ceftriaxone (RUE PICC) by Infectious disease team. He was seen by Dr. Chandu Rashid in consultation and electively admitted 02/18/2024 for IV heparin bridge therapy prior to
surgery on 02/19.
Hospital course: Patient underwent MVR #33 MITRIS RESILIA, AVR #25 INSPIRIS RESILIA, LEFT ATRIAL APPENDAGE EXCLUSION #45mm AtriClip with Dr. Rashid on 02/20/2024. Intraoperative STEPHANIE reported an ejection fraction of 60-65% with mitral valve mean
gradient 4 mmHg and aortic valve mean gradient of 9 mmHg. Patient required no intraoperative blood transfusion. He was received in CVICU on epinephrine, Levophed, Precedex, and insulin. Patient was quickly weaned off epinephrine and extubated at
1745 the evening of surgery. On postoperative day #1, the insulin drip was DC'd and Coleman catheter removed. On postoperative day #2, the chest tubes and RIJ were removed. The patient was followed by Dr. Escobar and Ceftriaxone 2 g daily via
RUE PICC will continue through 02/28/2024 as intraoperative cultures reported no bacterial growth. Home infusion team will remove PICC upon completion of antibiotic therapy. Eliquis will continue for 6 months of therapy due to left lower extremity
DVT. EKG on the day of discharge confirmed sinus rhythm with first-degree AV block cardiology interpretation. Labs on day of discharge: Hb 9.9, PLt 151k, creat 0.8, K+ 4.3.
Home medication changes:
see below
Discharge Plan
-
Patient Disposition: Home (Routine Discharge)
Discharge Diagnosis/Procedures: aortic and mitral valve replacement/left atrial appendage clip
Condition: Good
Diet: No restrictions
Activity: No strenuous activity
Driving Restrictions: Not until seen by your Dr
Bathing Restrictions: OK to Shower
Other Services: Cardiac Rehab
Specialty Instructions: Weigh Daily- Call MD for wt gain/loss 3 lbs overnight/5 lbs in 1 week
Referrals:
CT Transitional Care Nurse [Outside] (The Cardiothoracic Transitional Care Nurse will call you to set up a visit in 1-2 days.)
[facility]. Cardiac Rehab [Outside] - 04/03/24 2:00 pm
(Cardiac Rehab Orientation appointment is on 04/03/24 at 2 PM.
The Cardiac Rehab gym is located on the first floor of the [facility].)
[facility] [Outside]
Bryson Horn DO [Family Provider] -
Lisa Perez NP [Specified Professional Personl] - 04/01/24 11:00 am
Chandu Rashid MD [Active] - 03/25/24 1:30 pm
Prescriptions:
New
pantoprazole 40 mg Tablet,Delayed Release (Dr/Ec)
40 mg PO DAILY Qty: 30 1RF
aspirin [Children's Aspirin] 81 mg Tablet,Chewable
81 mg PO DAILY Qty: 0 0RF
cyclobenzaprine 10 mg Tablet
10 mg PO Q8HPRN PRN (Reason: muscle spasm) Qty: 20 0RF
gabapentin 100 mg Capsule
200 mg PO TID Qty: 21 0RF
oxycodone 5 mg Tablet
5 mg PO Q4HPRN PRN (Reason: severe pain) Qty: 20 0RF
atenolol 25 mg tablet
25 mg PO DAILY Qty: 30 0RF
Continued
Anoro Ellipta 62.5-25 mcg/actuation Blister With Device
1 inh INHALATION R DAILY
ceftriaxone 2 gram recon soln
2,000 mg IV Q24H Qty: 0 0RF
Rx Instructions:
FOR DOCUMENTATION ONLY
Changed
Eliquis 5 mg tablet
5 mg PO BID Qty: 60 1RF
Rx Instructions:
5 mg orally 2 times a day
Discharge Orders:
Discharge Patient (As Directed); Ordered 02/23/24
Ordered By: Ana Lilia Grace
Care Plan Goals
Care Plan Goals:
Problem: Readiness for enhanced knowledge related to diagnosis and treatment plan
Goal: Understand your diagnosis and treatment plan needs, including medications if applicable.
Instructions: Know your diagnosis, underlying causes and treatment plan options, including medications if applicable. Consult with your health care team to learn about your diagnosis and treatment plan, including medications if applicable.
Discharge Date and Time
Discharge Date/Time: 02/23/24 13:20
Print Language: TAJIK
[2024-02-23 11:44] VITALS: BP 108/81
[2024-02-23] MEDS: STERILE WATER FOR INJECTION 20 ML IV (11:50)
[2024-02-23] MEDS: ROCEPHIN 2000 MG IV (11:50)
--- NOTE | 2024-02-23 12:20 | PTCARENOTE ---
pt VSS, no changes in assessment. ambulates independently. per [facility], okay to give 1400 antibiotic before discharge. +BM. pt showered independently and dressed self.
--- NOTE | 2024-02-23 13:42 | PTCARENOTE ---
pt discharged home w/ , discharge instructions reviewed w/ patient and . questions answered. chest tube sutures removed by DISCOVERY GUIDE, dressing c/d/i. home meds reviewed. pt left w/ all belongings via wheelchair with staff escort.
== END 2024-02-23 13:20 | disposition home health service (06) | DRG 219 ==
LOC: CVICU 08:03
PROVIDERS: Clinical Nurse Specialist Acute Care; Nurse Practitioner; ADMITTING PHYSICIAN Thoracic Surgery (Cardiothoracic Vascular Surgery); CONSULT PHYSICIAN Internal Medicine Critical Care Medicine; CONSULT PHYSICIAN Internal Medicine Infectious Disease; FAMILY PHYSICIAN Internal Medicine
PROC: 5A1221Z Performance of Cardiac Output, Continuous (ICD-10-PCS; 2024-02-20)
PROC: 02RG08Z Replacement of Mitral Valve with Zooplastic Tissue, Open Approach (ICD-10-PCS; 2024-02-20)
PROC: 02L70CK Occlusion of Left Atrial Appendage with Extraluminal Device, Open Approach (ICD-10-PCS; 2024-02-20)
PROC: B24BZZ4 Ultrasonography of Heart with Aorta, Transesophageal (ICD-10-PCS; 2024-02-20)
DX: I33.0 Acute and subacute infective endocarditis (principal); I51.1 Rupture of chordae tendineae, not elsewhere classified; D62 Acute posthemorrhagic anemia; I82.402 Acute embolism and thrombosis of unspecified deep veins of left lower extremity; R78.81 Bacteremia; J98.11 Atelectasis; B95.4 Other streptococcus as the cause of diseases classified elsewhere
CPT/HCPCS: 88305; 88311; 71045; 71046; 71275; 74174; 80048; 80053; 81003; 81015; 82330; 82565; 82805; 82810; 82947; 82962; 83735; 84132; 84302; 84520; 85014; 85018; 85027; 85049; 85610; 85730; 86850; 86900; 86901; 86920; 87070; 87075; 87176; 87205; 93005; 93312; 93320; 93325; 94002; 94640; P9045; P9047; Q9967

== ENCOUNTER → 2024-03-03 07:11 | Outpatient (REF) | payer OTHER, SELFPAY | LOC: RCS 07:11 | PROVIDERS: ATTENDING PHYSICIAN Internal Medicine Cardiovascular Disease | DX: R00.1 Bradycardia, unspecified (principal) | CPT/HCPCS: 93005; 93225; 93226 ==

== ENCOUNTER → 2024-04-02 08:14 | Outpatient (REF) | payer OTHER, SELFPAY | LOC: RCS 08:14 | PROVIDERS: ATTENDING PHYSICIAN Internal Medicine Cardiovascular Disease; FAMILY PHYSICIAN Internal Medicine | DX: Z86.79 Personal history of other diseases of the circulatory system (principal); I44.1 Atrioventricular block, second degree; I44.0 Atrioventricular block, first degree; Z95.2 Presence of prosthetic heart valve | CPT/HCPCS: 93306 ==

== ENCOUNTER → 2024-04-04 14:13 | Outpatient (REF) | payer OTHER, SELFPAY | LOC: RCS 14:13 | PROVIDERS: ATTENDING PHYSICIAN Internal Medicine Cardiovascular Disease; FAMILY PHYSICIAN Internal Medicine | DX: I44.1 Atrioventricular block, second degree (principal) | CPT/HCPCS: 93017 ==

== ENCOUNTER 2024-04-16 07:40 | Outpatient (RCR) | payer OTHER, SELFPAY | END 2024-04-16 23:59 | disposition home or self-care (01) | LOC: CRHB 07:40 | PROVIDERS: ATTENDING PHYSICIAN Internal Medicine Cardiovascular Disease; FAMILY PHYSICIAN Internal Medicine | DX: Z95.4 Presence of other heart-valve replacement (principal) | CPT/HCPCS: 93797; 93798 ==

== ENCOUNTER 2024-04-21 07:07 | Outpatient (RCR) | payer OTHER, SELFPAY | END 2024-04-21 23:59 | disposition home or self-care (01) | LOC: CRHB 07:07 | PROVIDERS: ATTENDING PHYSICIAN Internal Medicine Cardiovascular Disease; FAMILY PHYSICIAN Internal Medicine | DX: Z95.4 Presence of other heart-valve replacement (principal) | CPT/HCPCS: 93798 ==

== ENCOUNTER 2025-10-14 19:30 | Emergency (ER) | payer OTHER, SELFPAY ==
[2025-10-14 19:49] VITALS: BP 138/85
[2025-10-14 21:13] VITALS: BP 135/93
[2025-10-14 22:03] VITALS: BP 151/89
--- NOTE | 2025-10-14 22:56 | ED.GENMED ---
History of Present Illness
General
Chief Complaint: DVT/Possible Blood Clot
Source: patient
Time Seen by Provider: 10/14/25 21:50
History of Present Illness
History of Present Illness:
60-year-old male presents to the emergency room complaining of left calf swelling. Patient noticed the swelling over the past few days. About 5 weeks ago the patient began having pain in his left knee. 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 While he did not have a sudden onset of pain that day that evening he began having pain in his left knee. The pain seemed to be inside the knee. He was having trouble weightbearing and so he started using a cane. He also
began using [id number] knee braces. Since the onset 5 weeks ago the knee pain has improved though it has not gone away. He did not seek care for this injury. Today he was seen by his primary care doctor who was concerned that the swelling
in his lower leg might represent a DVT. He was therefore told to come to the emergency room for an ultrasound. Patient denies any chest pain, shortness of breath.
Past History
Past History
ED Past Medical History: Asthma
ED Past Surgical History: Orthopedic (Bilateral shoulder surgery, right hip surgery)
Social History
Tobacco: Non-smoker
Alcohol: None
Drug: None
Living: with family
Phy Exam
Physical Exam
Physical Exam:
General: Awake, Alert, Oriented X3. No acute distress.
Vitals: unremarkable
Head: Atraumatic
Eyes: Pupils equal, EOMI
Neck: Trachea midline
Lungs: Clear and equal b/l
Heart: Regular rate, no murmurs
Neuro: Nonfocal
Skin: Warm, dry, no rash
Extremities: pulses equal b/l, mild edema noted right lower extremity. No specific area of tenderness or point tenderness. Left lower extremity might be slightly more erythematous than the right. No temperature difference between the 2 legs.
Course
Orders/Labs/Results
Orders:
Orders
10/14/25 20:04
Venous Doppler Lwr Ext Left [US Periph Venous LOWER Ext LT] Urgent
Comment:
Reason For Exam: pain, swelling and hx of blood clot
10/14/25 22:55
Knee, Left 4 or More Views [CR Knee - Left 4 Or More View*] Urgent
Comment:
Reason For Exam: knee pain
Vital Signs
Initial and Last Documented VS:
Initial Vital Signs
Temp Pulse Resp BP Pulse Ox
98.3 F 90 16 138/85 95
10/14/25 19:49 10/14/25 19:49 10/14/25 19:49 10/14/25 19:49 10/14/25 19:49
Last Documented Vital Signs
Temp Pulse Resp BP Pulse Ox
98 F 73 18 151/89 94
10/14/25 21:35 10/14/25 22:15 10/14/25 22:15 10/14/25 22:03 10/14/25 22:59
MDM/Problems Addressed
Differential Diagnosis Includes:
ligamentous injury, muscle tear, dvt
MDM/Problems Addressed:
DVT study is negative. Clinically I do not believe the patient is lightest. Patient likely has ligamentous or cartilaginous injury to the knee. Recommends Ortho follow-up
*Radiology
Radiology exam reviewed: preliminary read by ED provider (No acute abnormality on my review of the patient's knee x-ray) and radiology read reviewed (DVT negative)
*Pulse Oximetry
SaO2: 94
Oxygen Mode of Delivery: Room air
Patient hypoxic: no
*Critical Care Note
Total Time (30-74mins, 75-104mins- exclusive of procedures): Not Applicable
ED Attending Note
-
Portions of this chart may have been created with voice recognition software.� Occasional wrong word or��sound alike� substitutions may have occurred due to the inherent limitations of voice recognition software.
Discharge Plan
Departure
Patient Disposition: Home (Routine Discharge)
Date of Disposition: 10/14/25
Time of Disposition: 23:53
Patient with high blood pressure during this ER visit?: Yes
Discharge Problem:
Localized swelling of left lower leg, Knee strain
Instructions: Knee pain - ED (DC), Swelling
Prescriptions:
No Action
Anoro Ellipta 62.5-25 mcg/actuation Blister With Device
1 inh INHALATION R DAILY
pantoprazole 40 mg Tablet,Delayed Release (Dr/Ec)
40 mg PO DAILY Qty: 30 1RF
aspirin [Children's Aspirin] 81 mg Tablet,Chewable
81 mg PO DAILY Qty: 0 0RF
Eliquis 5 mg tablet
5 mg PO BID Qty: 60 1RF
Rx Instructions:
5 mg orally 2 times a day
cyclobenzaprine 10 mg Tablet
10 mg PO Q8HPRN PRN (Reason: muscle spasm) Qty: 20 0RF
gabapentin 100 mg Capsule
200 mg PO TID Qty: 21 0RF
oxycodone 5 mg Tablet
5 mg PO Q4HPRN PRN (Reason: severe pain) Qty: 20 0RF
atenolol 25 mg tablet
25 mg PO DAILY Qty: 30 0RF
Referrals:
Bryson Horn DO [Family Provider, Internal Medicine]
Rachid Marsh MD [Active, Orthopedics]
Interventions
Interventions:
*Risk Screen - Suicide Last Done: 10/14/25 19:49
*General Assessment Last Done: 10/14/25 19:49
*Neglect/Abuse Screening Last Done: 10/14/25 19:49
*ED- Fall Risk Assessment Last Done: 10/14/25 19:49
*ED COVID-19 Vaccine History Last Done: 10/14/25 19:49
*ED Influenza Vaccine History Last Done: 10/14/25 19:49
ED- Cardiac Assessment Last Done: 10/14/25 21:17
ED- Pulmonary Assessment Last Done: 10/14/25 21:17
ED-Peripheral Vascular Assessment Last Done: 10/14/25 21:17
ED-Skin Assessment Last Done: 10/14/25 21:17
Discharge Date and Time
Print Language: UPPER SORBIAN
[2025-10-14 23:00] VITALS: BP 141/88
== END 2025-10-15 00:39 | disposition home or self-care (01) ==
LOC: EMR 19:30
PROVIDERS: EMERGENCY PHYSICIAN Emergency Medicine; FAMILY PHYSICIAN Internal Medicine
DX: S86.912A Strain of unspecified muscle(s) and tendon(s) at lower leg level, left leg, initial encounter (principal); X50.0XXA Overexertion from strenuous movement or load, initial encounter; Y93.89 Activity, other specified; Y99.0 Civilian activity done for income or pay; R22.42 Localized swelling, mass and lump, left lower limb; M25.562 Pain in left knee; J45.909 Unspecified asthma, uncomplicated
CPT/HCPCS: 99284; 73564; 93971